=== PATIENT | male | born 1940 | race Caucasian/White ===

== ENCOUNTER 2019-04-02 10:27 | Outpatient (CLI) | payer MEDICARE, SELFPAY ==
--- NOTE | 2019-04-02 10:54 | CT_ITS ---
WS: [id number] CT ANGIOGRAM CAROTID ARTERIES HISTORY: CAROTID STENOSIS TECHNIQUE: CT angiogram is performed of the carotid arteries. During arterial injection imaging is ob tained from the skull base to the aortic arch in 1.25 mm imaging. Coronal and sagittal reformats are submitted, MIP imaging also reviewed. Additional multiplanar reformats of the carotid arteries are chapin bmitted. NASCET criteria utilized. All CT scans at [facility] use at least one of these d ose optimization techniques: automated exposure control; mA and/or kV adjustment per patient size (in cludes targeted exams where dose is matched to clinical indication); or iterative reconstruction. CONTRAST: Omnipaque 350; 95 mL IV. DLP: 921.74 mGycm COMPARISON: 03/08/2018 and carotid ultrasound 02/06/2018 Right carotid: Common carotid artery: Arises normally from the innominate artery. No significant stenosis. Internal carotid artery: Calcified plaque and intimal thickening at the bifurcation. Stenosis less th an 50%. External carotid artery: Patent. Left carotid: Common carotid artery: Arises normally from the arch. Intimal thickening and scattered plaque. No jefry nosis. Internal carotid artery: Moderate amount of calcified plaque at the bifurcation. Stenosis calculated at 73%. No progression since the prior examination. External carotid artery: Patent. Right vertebral artery: Mild calcified plaque and no stenosis. Left vertebral artery: Arises directly from the arch. No stenosis. Subclavian arteries: No stenosis or abnormality identified. Upper thorax: Normal. Thyroid gland: Normal. Osseous structures: Unremarkable. Skull base: No destructive bone lesions. Orbits and globes and soft tissues are negative. CT/CT angio neck [id number] IMPRESSION: 1. Stable moderate stenosis of 73% at the proximal LEFT ICA. No progression si nce 03/08/2018. 2. Mild atherosclerosis and stenosis RIGHT ICA, less than 50% without progress ion. 3. LEFT vertebral artery arises directly from the arch.
[2019-04-02 11:24] LABS: Blood Urea Nitrogen 13 mg/dL (8-23)
[2019-04-02] MEDS: iohexol 350 mg/mL 100 mL Btl IV (11:35)
== END 2019-04-02 10:28 | disposition home or self-care (01) ==
PROVIDERS: Radiology Diagnostic Radiology; Family Provider Nurse Practitioner Family; PCP Nurse Practitioner Family; Visit Provider Internal Medicine Cardiovascular Disease
DX: I65.23 Occlusion and stenosis of bilateral carotid arteries (principal)
CPT/HCPCS: 70498; 82565; 84520; Q9967

== ENCOUNTER 2019-07-25 12:40 | Outpatient (RCR) | payer MEDICARE, SELFPAY | END 2019-08-12 23:59 | disposition home or self-care (01) | LOC: SPT 12:40 | PROVIDERS: Family Provider Nurse Practitioner Family; PCP Nurse Practitioner Family; Referring Provider Nurse Practitioner Family; Visit Provider Nurse Practitioner Family | DX: M25.511 Pain in right shoulder (principal) | CPT/HCPCS: 97110; 97162; G0283 ==

== ENCOUNTER 2019-08-13 06:00 | Outpatient (RCR) | payer MEDICARE, SELFPAY | END 2019-08-17 11:26 | disposition home or self-care (01) | LOC: SPT 06:00 | PROVIDERS: PCP Nurse Practitioner Family; Referring Provider Nurse Practitioner Family; Visit Provider Nurse Practitioner Family | DX: M25.511 Pain in right shoulder (principal) | CPT/HCPCS: 97110; G0283 ==

== ENCOUNTER 2020-07-10 09:28 | Outpatient (CLI) | payer MEDICARE, SELFPAY ==
--- NOTE | 2020-07-10 09:40 | XR_ITS ---
WS: [id number] Exam: XR wrist RT min 3V* [id number] Date/Time of Exam: 07/10/2020 9:46 AM Reason For Exam: RIGHT WRIST PAIN No acute fracture or dislocation noted. Soft tissues are unremarkable. Mild degenerative change at th e radiocarpal joint. Marked DJD at the carpometacarpal joint of the thumb. XR/XR wrist RT min 3V* [id number] IMPRESSION: 1. No acute fracture or dislocation. 2. Degenerative changes.
== END 2020-07-10 09:29 | disposition home or self-care (01) ==
PROVIDERS: PCP Nurse Practitioner Family; Visit Provider Nurse Practitioner Family
DX: M25.531 Pain in right wrist (principal)
CPT/HCPCS: 73110

== ENCOUNTER 2020-07-16 09:47 | Outpatient (CLI) | payer MEDICARE, SELFPAY ==
--- NOTE | 2020-07-16 09:55 | CT_ITS ---
WS: [id number] CT HEAD NONCONTRAST HISTORY: ABNORMAL NEUROLOGICAL FINDINGS TECHNIQUE: Contiguous axial imaging performed through the brain in 2.5 mm imaging. Bone and soft tiss ue windows. All CT scans at [facility] use at least one of these dose optimization techniq ues: automated exposure control; mA and/or kV adjustment per patient size (includes targeted exams wh ere dose is matched to clinical indication); or iterative reconstruction. DLP: 992.04 mGycm COMPARISON: None available. Mild atrophy and mild chronic microvascular ischemic disease. No prior infarcts. There is a tiny lacu danica infarct in the RIGHT thalamus. Additional lacunar infarct versus perivascular space in the inferi or LEFT basal ganglia. Normal posterior fossa. Ventricles: Normal size with no hydrocephalus. Mild atherosclerotic plaque within the intracranial carotid arteries. Paranasal sinuses: As visualized are clear. Mastoid air cells: Well pneumatized. Calvarium and scalp: No acute fracture. Oscar hole in the RIGHT frontal lobe. CT/CT head wo con* [id number] IMPRESSION: 1. No acute intracranial hemorrhage or edema. 2. 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
== END 2020-07-16 09:48 | disposition home or self-care (01) ==
LOC: RADWPI 09:50
PROVIDERS: PCP Nurse Practitioner Family; Visit Provider Nurse Practitioner Family
DX: R29.90 Unspecified symptoms and signs involving the nervous system (principal); G31.9 Degenerative disease of nervous system, unspecified; I63.81 Other cerebral infarction due to occlusion or stenosis of small artery
CPT/HCPCS: 70450

== ENCOUNTER 2020-08-28 12:22 | Outpatient (CLI) | payer MEDICARE, SELFPAY ==
--- NOTE | 2020-08-28 12:41 | XR_ITS ---
WS: [id number] Exam: XR lumbar spine 2-3V* [id number] Date/Time of Exam: 08/28/2020 12:43 PM Reason For Exam: pain No acute fracture or dislocation noted. There is an old fracture of L2 with about 25% loss of vertebr al height and no posterior displacement. This can be seen on prior abdominal CT scan performed 017. Disc spaces are preserved. Facet DJD at all levels. Osteopenia. 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 This is probably magnified somewhat. Facet DJD at L4-5 and L5-S1. XR/XR lumbar spine 2-3V* [id number] IMPRESSION: 1. No acute fracture or malalignment. 2. Old compression fracture of the L2 without significant posterior displacemen t. 3. Osteopenia and degenerative changes. 4. 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 This was also noted on prior abdominal CT scan performed 11/05/2016.
--- NOTE | 2020-08-28 12:41 | XR_ITS ---
WS: [id number] Exam: XR thoracic spine 3V* [id number] Date/Time of Exam: 08/28/2020 12:43 PM Reason For Exam: pain Comparison 03/26/2015. There are old nondisplaced mild insufficiency compression deformities of T3, T4, T5, T8 and T9 which are stable in appearance since prior study. No acute new fracture is seen. Mild spondylosis. Osteopen ia. Paraspinal soft tissues are unremarkable. Slight dextroscoliosis. XR/XR thoracic spine 3V* [id number] IMPRESSION: 1. Old nondisplaced mild insufficiency compression deformities of T3, T4, T5, T 8 and T9. 2. No acute fracture or malalignment. 3. Mild degenerative change, osteopenia and slight scoliosis.
== END 2020-08-28 12:23 | disposition home or self-care (01) ==
PROVIDERS: Visit Provider Nurse Practitioner
DX: M54.5 Low back pain (principal); M54.6 Pain in thoracic spine; M85.88 Other specified disorders of bone density and structure, other site; I71.4 Abdominal aortic aneurysm, without rupture
CPT/HCPCS: 72072; 72100

== ENCOUNTER → 2021-01-16 10:55 | Outpatient (BNVA) | payer MEDICARE, SELFPAY | PROVIDERS: PCP Family Medicine Adult Medicine; Visit Provider Family Medicine Adult Medicine | DX: N40.0 Benign prostatic hyperplasia without lower urinary tract symptoms (principal); E11.9 Type 2 diabetes mellitus without complications; Z13.6 Encounter for screening for cardiovascular disorders | CPT/HCPCS: 80053; 80061; 83036; 83721; 84153; 84443; 85025 ==

== ENCOUNTER 2021-03-03 10:26 | Outpatient (CLI) | payer MEDICARE, SELFPAY ==
--- NOTE | 2021-03-03 10:30 | CT_ITS ---
WS: [id number] Exam: CT angio headne* [id number] Date/Time of Exam: 03/03/2021 10:31 AM Reason For Exam: Acute vision changes x2-3 per wk DLP: 1268.[address] scans at [facility] use at least one of these dose optimization techniques: automated e xposure control; mA and/or kV adjustment per patient size (includes targeted exams where dose is matc hed to clinical indication); or iterative reconstruction. Compared to prior study 04/02/2019. The right and left common carotid arteries are patent. There is stenosis at the takeoff of the left I CA estimated at about 75% essentially unchanged. There is mild stenosis at the takeoff of the right I CA estimated at less than 50% also unchanged since previous study. The external carotid arteries were patent. There appears to be new stenosis of the cavernous left internal carotid artery since the felicia or study. The cavernous right internal carotid artery remains widely patent. No sign of the artery d issection or aneurysm. The right and left vertebral arteries are patent. The basilar artery is patent . The great vessels are patent at the level of the aortic arch. Again noted is the left vertebral art latasha originating separately from the arch as previously described. Visualized upper lung zones are clear. No evidence of neck mass or significant cervical lymphadenopat hy. The airway was patent. The skull base and posterior fossa were unremarkable. Images of the brain demonstrated no sign of mass or acute bleed. Bony defect in the outer table of the skull high along t he right convexity may be from prior trauma or postsurgical change. CT/CT angio headne* [id number] IMPRESSION: 1. Stable-appearing stenosis at the takeoff of the extracranial left ICA estima adilson at about 75%. 2. Stable appearing mild stenosis at the takeoff of the extracranial right ICA estimated at less than 50%. 3. The bilateral carotid arteries are patent. No indication of aneurysm or diss ection. 4. Stenosis of the left cavernous internal carotid artery which could could be as high as 70-80%. This is a change since the last exam. Further workup with CT A or MRA of the head might be considered for more detailed evaluation.
[2021-03-03] MEDS: iohexol 350 mg/mL 100 mL Btl IV (16:21)
== END 2021-03-03 10:27 | disposition home or self-care (01) ==
PROVIDERS: PCP Family Medicine Adult Medicine; Visit Provider Family Medicine Adult Medicine
DX: H53.8 Other visual disturbances (principal); G43.109 Migraine with aura, not intractable, without status migrainosus; I65.23 Occlusion and stenosis of bilateral carotid arteries
CPT/HCPCS: 70496; 70498; Q9967

== ENCOUNTER 2021-05-05 07:52 | Outpatient (CLI) | payer MEDICARE, SELFPAY ==
--- NOTE | 2021-05-05 08:10 | XR_ITS ---
WS: [id number] Exam: XR chest 2V insp/exp [id number] Date/Time of Exam: 05/05/2021 8:18 AM Reason For Exam: shortness of breath Comparison 11/29/2018. The lungs are clear and fully expanded. No pneumothorax is seen. Normal cardiomediastinal silhouette. No pleural effusions. Bony structures are intact. High riding right humeral head may indicate long-s tanding rotator cuff tear. XR/XR chest 2V insp/exp [id number] IMPRESSION: 1. No acute cardiopulmonary finding. No pneumothorax.
== END 2021-05-05 07:53 | disposition home or self-care (01) ==
PROVIDERS: PCP Family Medicine Adult Medicine; Visit Provider Family Medicine Adult Medicine
DX: R06.02 Shortness of breath (principal)
CPT/HCPCS: 71046

== ENCOUNTER → 2021-06-04 13:21 | Outpatient (BNVA) | payer MEDICARE, SELFPAY | PROVIDERS: PCP Family Medicine Adult Medicine; Visit Provider Thoracic Surgery (Cardiothoracic Vascular Surgery) | DX: I65.23 Occlusion and stenosis of bilateral carotid arteries (principal); Z87.891 Personal history of nicotine dependence | CPT/HCPCS: 99213 ==

== ENCOUNTER 2021-07-21 08:42 | Emergency (ER) | payer MEDICARE, SELFPAY ==
--- NOTE | 2021-07-21 08:47 | ECG_ITS ---
[facility] Test Date: 2021-07-21 Pat Name: Clovis Jaquez Department: Room: Gender: Male Remote Pilot Operator: : 1940 Requested By: Ermias Chavez Order Number: [id number] George MD: Gustavo Mo M.D. Measurements Intervals [place] Rate: 111 P: 34 RI: 228 QRS: 19 QRSD: 85 T: -2 QT: 310 QTc: 421 Interpretive Statements SINUS TACHYCARDIA WITH FIRST DEGREE AV BLOCK Compared to ECG 02/02/2016 11:08:39 First degree AV block now present Sinus rhythm no longer present Electronically Signed On 07-21-2021 17:27:48 CDT by Gustavo Mo M.D. [id number]
[2021-07-21 09:07] VITALS: BP 117/90; PULSE 120; RESP 16; O2SAT 95; BMI 28.7
--- NOTE | 2021-07-21 09:07 | ED_ITS ---
HPI - Arrhythmia/Palpitations General: Chief Complaint: Arrhythmia/Palpitations Stated Complaint: fast HR Time Seen by Provider: 07/21/21 08:46 Source: patient Mode of arrival: ambulatory Limitations: no limitations History of Present Illness: 80 male present to the ER with complaitns of a rapid heart rate this morning while in bed. Pt denies cehst pain or dyspnea. He usually Takes metoprolol tartrate twice daily. He is also on a low-dose JORY inhibitor. Not otherwise recently been ill. MD complaint: rapid heart beat and heart racing Onset (ago): hour(s) Duration: intermittent Severity: mild Context: occurred during rest Associated symptoms: Deny anxiety, cough, diaphoresis, muscle cramps, nausea, paresthesias, pre-syncope, sense of impending doom, short of breath, syncope or vomiting Review of Systems Const: Denies: fever(s), chills, body aches or diaphoresis ENMT: Denies: throat pain, ear or mastoid pain, nasal discharge or nasal congestion Card: Reports: palpitations; Denies: chest pain, irregular heart rhythm, edema, syncope or pre-syncope Resp: Denies: dyspnea, productive cough or non-productive cough GI: Denies: nausea or vomiting : Denies: flank pain, dysuria, urinary frequency or urinary urgency Musc: Denies: muscle cramps Skin/Breast: Denies: rash or pruritus Psych: Denies: anxiety PFSH ED PFSH: Medical History BPH (benign prostatic hyperplasia) Carotid stenosis, left DM type 2 (diabetes mellitus, type 2) GERD (gastroesophageal reflux disease) History of chronic back pain HTN (hypertension), benign Hyperlipidemia associated with type 2 diabetes mellitus Migraine equivalent syndrome Osteoarthritis involving multiple joints on both sides of body SOB (shortness of breath) Vitreous flashes of both eyes Surgical History H/O brain surgery H/O cataract extraction History of appendectomy History of cholecystectomy S/P hernia surgery Family History Sister Cancer Father Cancer Other CAD (coronary artery disease) Social History Smoking and tobacco status: former smoker Quit status (tobacco): has quit using tobacco Year quit tobacco: 1969 Former quit date comment: Smoked x 22 year 1/2 pack per day Alcohol intake: current Alcohol intake frequency: holidays/special occasions only Marital status: Current occupational status: employed and retired Physical Exam Const: COMMON NORMALS: no acute distress GENERAL APPEARANCE: cooperative and comfortable ORIENTATION/CONSCIOUSNESS: Yes awake, Yes oriented to person, Yes oriented to place and Yes oriented to time HENMT: COMMON NORMALS: normocephalic, atraumatic and hearing grossly normal bilaterally HEAD & SCALP: normocephalic and atraumatic Neck/C-Spine: COMMON NORMALS: no JVD Resp: COMMON NORMALS: normal respiratory effort, No retractions, No use of accessory muscles and clear to auscultation bilaterally AUSCULTATION: clear to auscultation bilaterally Cardio: COMMON NORMALS: no JVD, regular rhythm and No murmurs present (Cardio) RATE: tachycardic RHYTHM: regular rhythm GI: COMMON NORMALS: Soft to palpation and No hepatosplenomegaly present AUSCULTATION: Yes normoactive bowel sounds PALPATION: Yes Soft to palpation, No Tenderness to palpation present (GI), No Guarding due to palpation present (GI) and Yes No hepatosplenomegaly present Extremity: COMMON NORMALS: normal to inspection, capillary refill normal, no clubbing, cyanosis or edema, no calf tenderness and no pedal edema Neuro: SENSORIUM/ORIENTATION: Yes oriented to person, Yes oriented to place and Yes oriented to time Skin: COMMON NORMALS: no rashes or lesions noted GENERAL SKIN EXAM: no rashes or lesions noted Course Vital Signs: Vital signs: Vital Signs Pulse Rate 99 07/21/21 10:05 Respiratory Rate 18 07/21/21 10:05 Blood Pressure 93/67 07/21/21 10:05 Pulse Oximetry 95 07/21/21 10:05 MDM - Arrhythmia/Palpitations Medical Decision Making heart rate improved as did his blood pressure. He is only taking metoprolol tartrate once daily he may have some aspect of rebound tachycardia due to that. He is on ramipril as well. At this point recommend stopping the ramipril and switching him to metoprolol succinate to avoid rebound hypertension recheck his blood pressure with his doctor within the week. Return if he has further problems. Medical Records I reviewed the patient's medical records. Lab Data I reviewed the patient's lab results. : 07/21/21 09:44 07/21/21 09:44 Radiology Impressions Chest X-Ray 07/21/21 09:39 IMPRESSION: No acute chest abnormality. Laboratory Results WBC 9.4 10^3/uL (4.0-10.0) 07/21/21 09:44 RBC 4.47 10^6/uL (4.1-5.3) 07/21/21 09:44 Hgb 14.2 g/dL (11.7-16.6) 07/21/21 09:44 Hct 42.6 % (42.0-52.0) 07/21/21 09:44 MCV 95.3 fl (80-94) H 07/21/21 09:44 MCH 31.8 pg (28.0-34.0) 07/21/21 09:44 MCHC 33.3 g/dL (30.0-36.0) 07/21/21 09:44 RDW 13.2 % (12.1-15.1) 07/21/21 09:44 Plt Count 145 10^3/cmm (130-400) 07/21/21 09:44 MPV 10.0 fL (7.4-10.4) 07/21/21 09:44 Neut % (Auto) 53.4 % 07/21/21 09:44 Lymph % (Auto) 34.9 % 07/21/21 09:44 Forest % (Auto) 8.3 % 07/21/21 09:44 Eos % (Auto) 2.5 % 07/21/21 09:44 Baso % (Auto) 0.6 % 07/21/21 09:44 Neut # (Auto) 5.01 10^3/uL (1.8-7.7) 07/21/21 09:44 Lymph # (Auto) 3.3 10^3/uL (0.8-4.8) 07/21/21 09:44 Forest # (Auto) 0.8 10^3/uL (0.2-0.9) 07/21/21 09:44 Eos # (Auto) 0.2 10^3/uL (0.0-0.8) 07/21/21 09:44 Baso # (Auto) 0.1 10^3/uL (0.0-0.1) 07/21/21 09:44 Nucleated RBC % (auto) 0 % 07/21/21 09:44 Nucleated RBCs # 0.0 /100WBC 07/21/21 09:44 Sodium 137 mmol/L (136-145) 07/21/21 09:44 Potassium 4.3 mmol/L (3.5-5.1) 07/21/21 09:44 Chloride 103 mmol/L (98-107) 07/21/21 09:44 Carbon Dioxide 20 mmol/L (22-29) L 07/21/21 09:44 Anion Gap 18.3 (5-19) 07/21/21 09:44 BUN 18 mg/dL (8-23) 07/21/21 09:44 Creatinine 0.9 mg/dL (0.7-1.2) 07/21/21 09:44 GFR Calculation Not Reportable 07/21/21 09:44 Glucose 240 mg/dL (65-115) H 07/21/21 09:44 Calculated Osmolality 294 mOsm/kg (285-295) 07/21/21 09:44 Calcium 10.1 mg/dL (8.5-10.5) 07/21/21 09:44 Total Bilirubin 0.4 mg/dL (0.15-1.2) 07/21/21 09:44 AST 14 U/L (0-40) 07/21/21 09:44 ALT 19 U/L (0-41) 07/21/21 09:44 Alkaline Phosphatase 61 IU/L (40-130) 07/21/21 09:44 Troponin T Baseline 18 ng/L (0-15) H 07/21/21 09:44 Troponin T 120 Minute 16.96 ng/L (0-15) H 07/21/21 10:35 Delta Troponin T -1.04 ABS# (0-10) L 07/21/21 10:35 Total Protein 6.7 g/dL (6.6-8.7) 07/21/21 09:44 Albumin 4.3 g/dL (3.5-5.2) 07/21/21 09:44 Globulin 2.4 g/dL (1.3-4.6) 07/21/21 09:44 TSH 1.85 uIU/mL (0.27-4.20) 07/21/21 09:44 Discharge Plan Discharge Patient Disposition: Home Clinical Impression: Medication side effect, HTN (hypertension), benign, DM type 2 (diabetes mellitus, type 2), Sinus tachycardia Condition: Stable Prescriptions: New Toprol XL 50 mg tablet extended release 24 hr 50 mg PO DAILY Qty: 14 0RF Discontinued metoprolol tartrate 50 mg tablet See Rx Instructions .ROUTE .COMPLEX Qty: 90 3RF Dose Instruction: TAKE 1 TABLET ONE TIME DAILY FOR BLOOD PRESSURE AND HEART Rx Instructions: TAKE 1 TABLET ONE TIME DAILY FOR BLOOD PRESSURE AND HEART ramipril 2.5 mg capsule See Rx Instructions .ROUTE .COMPLEX Qty: 180 0RF Dose Instruction: TAKE 1 CAPSULE TWICE DAILY FOR BLOOD PRESSURE AND KIDNEY PROTECTION Rx Instructions: TAKE 1 CAPSULE TWICE DAILY FOR BLOOD PRESSURE AND KIDNEY PROTECTION No Action gabapentin 600 mg tablet 600 mg PO BID Qty: 180 1RF famotidine 20 mg tablet 20 mg PO BID Qty: 180 1RF meloxicam 7.5 mg tablet 7.5 mg PO DAILY PRN (Reason: arthritis pain) Qty: 90 1RF Rx Instructions: take with food tamsulosin 0.4 mg capsule 0.4 mg PO DAILY Qty: 90 1RF clopidogrel [Plavix] 75 mg tablet 75 mg PO DAILY Qty: 30 3RF aspirin [Adult Low Dose Aspirin] 81 mg tablet,delayed release (DR/EC) 81 mg PO DAILY 0RF glipizide 5 mg tablet See Rx Instructions .ROUTE .COMPLEX Qty: 180 0RF Dose Instruction: TAKE 1 TABLET TWICE DAILY FOR DIABETES Rx Instructions: TAKE 1 TABLET TWICE DAILY FOR DIABETES metformin 1,000 mg tablet See Rx Instructions .ROUTE .COMPLEX Qty: 180 3RF Dose Instruction: TAKE 1 TABLET TWICE DAILY Rx Instructions: TAKE 1 TABLET TWICE DAILY (DME) True Metrix Glucose Test Strip Strip See Rx Instructions .Route Qty: 50 0RF Rx Instructions: As directed, test blood sugar, once, daily. atorvastatin 80 mg tablet See Rx Instructions .ROUTE .COMPLEX Qty: 90 1RF Dose Instruction: TAKE 1 TABLET EVERY DAY Rx Instructions: TAKE 1 TABLET EVERY DAY Discharge Orders: Discharge ED (Routine); Ordered 07/21/21 Ordered By: Ermias Chaudhry Referrals: Sushil Islas MD [Primary Care Provider] - Discharge Diet: Usual diet Discharge Activity: Limit activity as instructed Patient Instructions: Opioid Safety Activity Restrictions/Additional Instructions: Avoid strenuous activity. Stop the metoprolol tartrate and instead use metoprolol to succinate (the longer acting medication will lead to less tachycardic episodes). Also stop the ramp arrival. Recheck blood pressure with your doctor within a week. Coding Level of Care Code ED Chief Station Engineer for Sebastien Albright
[2021-07-21] MEDS: sodium chloride 0.9% 500 ML 999 ML IV (09:38)
--- NOTE | 2021-07-21 09:39 | XR_ITS ---
WS: [id number] XR chest 1V portable [id number] REASON FOR EXAM: dyspnea/cough FINDINGS: Moderate tortuosity and ectasia of the thoracic aorta without aneurysmal dilatation. Normal heart size. Elevation of the right hemidiaphragm. Calcified granulomatous disease bilaterally. No acute pulmonary parenchymal or pleural abnormality. Significant degenerative spondylosis in the mid and lower thoracic spine. The chest is unchanged compared to 05/05/2021. XR/XR chest 1V portable [id number] IMPRESSION: No acute chest abnormality.
[2021-07-21 09:52] LABS: Basophils # 0.1 10^3/uL (0.0-0.1); Basophils % 0.6 %; Eosinophils # 0.2 10^3/uL (0.0-0.8); Eosinophils % 2.5 %; Hematocrit 42.6 % (42.0-52.0); Hemoglobin 14.2 g/dL (11.7-16.6); Lymphocytes # 3.3 10^3/uL (0.8-4.8); Lymphocytes % 34.9 %; Mean Corpuscular HGB Conc 33.3 g/dL (30.0-36.0); Mean Corpuscular Hemoglobin 31.8 pg (28.0-34.0); Mean Corpuscular Volume 95.3 fl (80-94); Monocytes # 0.8 10^3/uL (0.2-0.9); Monocytes % 8.3 %; Neutrophils # 5.01 10^3/uL (1.8-7.7); Neutrophils % 53.4 %; Nucleated Red Blood Cells % 0 %; Platelet Count 145 10^3/cmm (130-400); Red Blood Count 4.47 10^6/uL (4.1-5.3); Red Cell Distribution Width 13.2 % (12.1-15.1); White Blood Count 9.4 10^3/uL (4.0-10.0)
[2021-07-21 10:05] VITALS: BP 93/67; PULSE 99; RESP 18; O2SAT 95
[2021-07-21 10:07] LABS: Troponin(5th) Baseline 18 ng/L (0-15)
[2021-07-21] MEDS: sodium chloride 0.9% 1,000 ML 999 ML IV (10:29)
[2021-07-21 10:33] LABS: Alanine Aminotransferase 19 U/L (0-41); Albumin Level 4.3 g/dL (3.5-5.2); Alkaline Phosphatase 61 IU/L (40-130); Anion Gap 18.3 (5-19); Aspartate Amino Transferase 14 U/L (0-40); Blood Urea Nitrogen 18 mg/dL (8-23); Calcium 10.1 mg/dL (8.5-10.5); Carbon Dioxide 20 mmol/L (22-29); Chloride 103 mmol/L (98-107); Globulin 2.4 g/dL (1.3-4.6); Glucose 240 mg/dL (65-115); Osmolality Calculated 294 mOsm/kg (285-295); Potassium 4.3 mmol/L (3.5-5.1); Sodium 137 mmol/L (136-145); Thyroid Stimulating Hormone 1.85 uIU/mL (0.27-4.20); Total Bilirubin 0.4 mg/dL (0.15-1.2); Total Protein 6.7 g/dL (6.6-8.7)
--- NOTE | 2021-07-21 10:47 | ECG_ITS ---
[facility] Test Date: 2021-07-21 Pat Name: Clovis Jaquez Department: Room: Gender: Male Certified Medical Asst: : 1940 Requested By: Ermias Chavez Order Number: [id number] George MD: Gustavo Mo M.D. Measurements Intervals [place] Rate: 93 P: 36 UT: 257 QRS: 20 QRSD: 85 T: -4 QT: 341 QTc: 426 Interpretive Statements SINUS RHYTHM WITH FIRST DEGREE AV BLOCK Compared to ECG 07/21/2021 09:16:16 Sinus tachycardia no longer present Electronically Signed On 07-21-2021 17:30:46 CDT by Gustavo Mo M.D. [id number]
[2021-07-21 11:01] LABS: Troponin 5 2HR 16.96 ng/L (0-15)
[2021-07-21 11:02] LABS: Troponin 5 2HR Delta -1.04 ABS# (0-10)
== END 2021-07-21 11:30 | disposition home or self-care (01) ==
PROVIDERS: Emergency Provider Family Medicine; PCP Family Medicine Adult Medicine
DX: R00.0 Tachycardia, unspecified (principal); T44.7X5A Adverse effect of beta-adrenoreceptor antagonists, initial encounter; E11.9 Type 2 diabetes mellitus without complications; I10 Essential (primary) hypertension; E78.5 Hyperlipidemia, unspecified; K21.9 Gastro-esophageal reflux disease without esophagitis
CPT/HCPCS: 36415; 71045; 80053; 84443; 84484; 85025; 93005; 99284; J7030; J7040

== ENCOUNTER 2021-10-26 11:50 | Emergency (ER) | payer MEDICARE, SELFPAY ==
[2021-10-26 12:26] VITALS: BP 129/81; PULSE 66; RESP 18; TEMP 36.2; O2SAT 97; BMI 28.5
[2021-10-26 12:35] VITALS: BP 119/75; PULSE 60; RESP 16; O2SAT 96
--- NOTE | 2021-10-26 13:01 | ED_ITS ---
HPI - General Adult General: Chief complaint: General Medical Stated complaint: right side pain Time Seen by Provider: 10/26/21 13:00 Source: patient Mode of arrival: ambulatory Limitations: no limitations History of Present Illness: Patient is a nice 81-year-old male who presents to ED today with a complaint of right side pain. Patient tells me he sneezed earlier and immediately felt pain to his right lateral chest and abdomen. He states he did this one time before approximately 3 decades ago and states he strained something in his abdominal wall that did heal with time. Patient is not complaining of chest pain, shortness of breath, difficulty breathing. He is not having any nausea, vomiting, changes in bowel movements. No urinary complaints. No flank pain. No fevers. Has not noticed any bruising or swelling to the area. Onset (ago): hour(s) Location: chest and abdomen Pain Consistency: constant Relieving factors: immobilization Exacerbating factors: movement Associated symptoms: Reports no associated symptoms and chest pain (R lateral lower chest/abdomen); Deny dyspnea, nausea, rash, palpitations, syncope or vomiting Treatments prior to arrival: none Review of Systems Const: Denies: fever(s), chills or body aches Card: Reports: chest pain (R lateral lower chest/abdomen); Denies: palpitations, irregular heart rhythm, edema, swelling of feet/ankles, lightheadedness, syncope, pre-syncope, dyspnea on exertion, orthopnea, leg pain with exertion or acrocyanosis Resp: Denies: dyspnea, productive cough, wheezing, pain on inspiration, hemoptysis or chest congestion GI: Reports: abdominal pain; Denies: nausea, vomiting or diarrhea : Denies: flank pain or hematuria Musc: Denies: neck pain, back pain, extremity pain or joint pain Skin/Breast: Denies: rash Neuro: Denies: numbness in extremities, weakness in extremities, sensory changes or difficulty walking [facility] ED PFSH: Medical History BPH (benign prostatic hyperplasia) Carotid stenosis, left DM type 2 (diabetes mellitus, type 2) GERD (gastroesophageal reflux disease) History of chronic back pain HTN (hypertension), benign Hyperlipidemia associated with type 2 diabetes mellitus Migraine equivalent syndrome Osteoarthritis involving multiple joints on both sides of body SOB (shortness of breath) Vitreous flashes of both eyes Surgical History H/O brain surgery H/O cataract extraction History of appendectomy History of cholecystectomy S/P hernia surgery Family History Sister Cancer Father Cancer Other CAD (coronary artery disease) Social History Smoking and tobacco status: former smoker Quit status (tobacco): has quit using tobacco Year quit tobacco: 1969 Former quit date comment: Smoked x 22 year 1/2 pack per day Alcohol intake: current Alcohol intake frequency: holidays/special occasions only Marital status: Current occupational status: employed and retired Physical Exam Const: COMMON NORMALS: no acute distress, patient oriented x3, no limitations, alert and well nourished GENERAL APPEARANCE: cooperative NUTRITIONAL APPEARANCE: overweight ORIENTATION/CONSCIOUSNESS: Yes awake, Yes oriented to person, Yes oriented to place and Yes oriented to time Chest: COMMONS NORMALS: normal inspection of the chest OTHER: mild tenderness to R lower lateral ribs; no crepitus; breath sounds normal Resp: COMMON NORMALS: normal respiratory effort and clear to auscultation bilaterally AUSCULTATION: clear to auscultation bilaterally Cardio: COMMON NORMALS: regular rate and regular rhythm RATE: regular rate RHYTHM: regular rhythm GI: COMMON NORMALS: Normal to inspection, nondistended, normoactive bowel sounds present, Soft to palpation, No hepatosplenomegaly present and no masses INSPECTION: Yes normal to inspection AUSCULTATION: Yes normoactive bowel sounds PALPATION: Yes Soft to palpation, No Guarding due to palpation present (GI), No Rigid due to palpation and Yes No hepatosplenomegaly present GI image (male): 1. mild tenderness to palpation of R lateral abdomen; no masses/bulges/hernias present : COMMON NORMALS: Yes no CVA tenderness BLADDER/KIDNEY EXAM: Yes no CVA tenderness Back/Pelvis: COMMON NORMALS: no CVA tenderness, thoracic and lumbar spine normal to inspection, no thoracic nor lumbar tenderness and thoraco-lumbar ROM normal Extremity: COMMON NORMALS: normal to inspection GENERAL: Yes normal exam except as noted Neuro: JAYDA COMA SCALE: document GCS findings Jayda coma scale eye opening: Spontaneous [place] coma scale verbal response: Orientated Jayda coma scale motor response: Obey commands [place] coma scale total score: 15 COMMON NORMALS: patient oriented x3, moves all extremities, no focal motor deficits and no sensory deficits noted SENSORIUM/ORIENTATION: Yes alert, Yes oriented to person, Yes oriented to place and Yes oriented to time Skin: COMMON NORMALS: no rashes or lesions noted GENERAL SKIN EXAM: no rashes or lesions noted Course Vital Signs: Vital signs: Vital Signs Temperature 97.1 F L 10/26/21 12:26 Pulse Rate 60 10/26/21 12:35 Respiratory Rate 16 10/26/21 12:35 Blood Pressure 119/75 10/26/21 12:35 Pulse Oximetry 96 10/26/21 12:35 Oxygen Delivery Me thod 10/26/21 12:35 MDM - General Adult Medical Decision Making Patient here with right lateral chest/abdominal pain after a sneeze this morning. R rib/CXR films negative. Patient diagnosed with abdominal wall strain. Conservative therapies for home discussed. Recommend follow up with PCP in 3-5 days for re-evaluation. Return to ED precautions given. Lab Data Radiology Impressions Ribs X-Ray 10/26/21 13:44 IMPRESSION: No acute findings. Discharge Plan Discharge Patient Disposition: Home Clinical Impression: Strain of abdominal wall Qualifiers: Encounter type: initial encounter Qualified Code(s): S39.011A - Strain of muscle, fascia and tendon of abdomen, initial encounter Condition: Stable Prescriptions: No Action aspirin [Adult Low Dose Aspirin] 81 mg tablet,delayed release (DR/EC) 81 mg PO DAILY lisinopril 2.5 mg tablet 2.5 mg PO DAILY Qty: 90 1RF metoprolol tartrate 50 mg tablet 50 mg PO BID Qty: 180 1RF metformin 1,000 mg tablet See Rx Instructions .ROUTE .COMPLEX Qty: 180 3RF Dose Instruction: TAKE 1 TABLET TWICE DAILY Rx Instructions: TAKE 1 TABLET TWICE DAILY (DME) True Metrix Glucose Test Strip Strip See Rx Instructions .ROUTE .COMPLEX Qty: 50 0RF Dose Instruction: TEST BLOOD SUGAR EVERY DAY DIRECTED Rx Instructions: TEST BLOOD SUGAR EVERY DAY DIRECTED meloxicam 7.5 mg tablet See Rx Instructions .ROUTE .COMPLEX Qty: 90 0RF Dose Instruction: TAKE 1 TABLET ONE TIME DAILY NEEDED FOR ARTHRITIS PAIN (TAKE WITH FOOD) Rx Instructions: TAKE 1 TABLET ONE TIME DAILY NEEDED FOR ARTHRITIS PAIN (TAKE WITH FOOD) glipizide 5 mg tablet See Rx Instructions .ROUTE .COMPLEX Qty: 180 2RF Dose Instruction: TAKE 1 TABLET TWICE DAILY FOR DIABETES Rx Instructions: TAKE 1 TABLET TWICE DAILY FOR DIABETES topiramate 25 mg tablet 25 mg PO .qhs 90 Days Qty: 90 2RF gabapentin 600 mg tablet 600 mg PO BID Qty: 180 1RF famotidine 20 mg tablet 20 mg PO BID Qty: 180 1RF tamsulosin 0.4 mg capsule 0.4 mg PO DAILY Qty: 90 1RF Discharge Orders: Discharge ED (Routine); Ordered 10/26/21 Ordered By: Deb Baldwin Referrals: Sushil Islas MD [Primary Care Provider] - Coding Level of Care Code ED Pool Attendant for Chg Fwd Exam Comprehensive
--- NOTE | 2021-10-26 13:10 | PC.NURSE ---
Pt refused IV placement and blood draws.
--- NOTE | 2021-10-26 13:44 | XRR_ITS ---
PROCEDURE INFORMATION: Exam: XR Right Ribs with PA Chest Exam date and time: 10/26/2021 2:14 PM Age: 81 years old Clinical indication: Chest wall pain; Right; Additional info: Sneezed/heard a pop/injury/pain TECHNIQUE: Imaging protocol: Radiologic exam of the Right ribs with PA chest. Views: 3 views COMPARISON: CR XR chest 1V portable [id number] 07/21/2021 10:05 AM FINDINGS: Lungs: Unremarkable. No consolidation. Pleural spaces: Unremarkable. No pleural effusion. No pneumothorax. Heart/Mediastinum: Unremarkable. No cardiomegaly. Bones/joints: Unremarkable. XR/XR ribs RT mn 3V w CXR1V [id number] IMPRESSION: No acute findings.
== END 2021-10-26 15:06 | disposition home or self-care (01) ==
PROVIDERS: Emergency Provider Physician Assistant; PCP Family Medicine Adult Medicine
DX: S39.011A Strain of muscle, fascia and tendon of abdomen, initial encounter (principal); Z79.82 Long term (current) use of aspirin; Z79.84 Long term (current) use of oral hypoglycemic drugs; E11.9 Type 2 diabetes mellitus without complications; I10 Essential (primary) hypertension; E78.5 Hyperlipidemia, unspecified; Z87.891 Personal history of nicotine dependence; X58.XXXA Exposure to other specified factors, initial encounter
CPT/HCPCS: 71101; 99283

== ENCOUNTER → 2021-11-09 10:53 | Outpatient (BNVA) | payer MEDICARE, SELFPAY | PROVIDERS: PCP Family Medicine Adult Medicine; Visit Provider Family Medicine | DX: R35.0 Frequency of micturition (principal) | CPT/HCPCS: 81000 ==

== ENCOUNTER 2022-01-28 11:43 | Outpatient (CLI) | payer MEDICARE, SELFPAY ==
--- NOTE | 2022-01-28 12:15 | USCV_ITS ---
Clovis Jaquez Age: 81 Gender: M : 1940 Exam Date: 01/28/2022 11:55 Ordering Phys: Isai Castro MD (Andy) ([email or web address] [place]) Technologist: FELTON Exam Location: [facility] – [place] Indication: Stenosis Risk Factors: Previous Vascular Surgery: Right Brachial BP: / Left Brachial BP: / Right Left Velocity (cm/s) Spectral Plaque Velocity (cm/s) Spectral Plaque Syst/Diast Broadening Syst/Diast Broadening 65.10/ 11.00 Prox CCA 97.30 / 10.50 70.60/ 12.10 Mid CCA 80.50 / 8.80 87.10/ 11.00 Distal CCA 87.10 / 9.90 138.00/21.00 Prox ICA 103.90/ 17.10 134.10/26.30 Mid ICA 97.30 / 17.10 80.20/ 17.10 Distal ICA 115.70/ 18.40 133.40 ECA 111.70 1.58 ICA/CCA 1.19 Antegrade Vertebral Antegrade 69.70/ 11.80 cm/s 105.2/ 17.10 cm/s 0 Tri Subclavian Tri 94.70 110.4 0 CONCLUSIONS Right ICA stenosis 50-69% at the lower end of the range.. Mild atheromatous plaque right carotid bulb/ICA. Left ICA stenosis <50%. Mild atheromatous plaque left carotid bulb/ICA. Normal antegrade Doppler flow noted in the right vertebral artery. Normal antegrade Doppler flow noted in the left vertebral artery. Binh Hidalgo MD (Electronically Signed) Final Date: 28 January 2022 15:16 S
== END 2022-01-28 11:44 | disposition home or self-care (01) ==
LOC: RAD 11:44
PROVIDERS: PCP Family Medicine Adult Medicine; Visit Provider Thoracic Surgery (Cardiothoracic Vascular Surgery)
DX: I65.23 Occlusion and stenosis of bilateral carotid arteries (principal)
CPT/HCPCS: 93880

== ENCOUNTER → 2022-06-29 14:43 | Outpatient (BNVA) | payer MEDICARE, SELFPAY | PROVIDERS: PCP Family Medicine Adult Medicine; Visit Provider Surgery | DX: K21.9 Gastro-esophageal reflux disease without esophagitis (principal); R11.0 Nausea | CPT/HCPCS: 99203 ==

== ENCOUNTER 2022-07-21 07:19 | Day surgery (SDC) | payer MEDICARE, SELFPAY ==
[2022-07-19 14:20] VITALS: BMI 29.2
[2022-07-21 07:40] VITALS: BP 128/98; PULSE 115; RESP 16; TEMP 36.3; O2SAT 95
[2022-07-21] MEDS: sodium chloride 0.9% 1,000 ML 30 ML IV (07:46)
[2022-07-21 07:50] LABS: Glucose Point of Care 302 mg/dL (70-110)
--- NOTE | 2022-07-21 09:07 | ANES.PREANE2 ---
Pre-Anesthetic Assessment Height/Weight: Height 1.8 m Weight 95.254 kg Temp Pulse Resp BP Pulse Ox O2 Del Method 97.4 F L 115 H 16 128/98 95 Room Air 07/21/22 07:40 07/21/22 07:40 07/21/22 07:40 07/21/22 07:40 07/21/22 07:40 07/21/22 07:40 Operation Date: 07/21/22 09:00 Proposed Procedures p [id number] egd K21.9, R11.0(Not Applicable) - Barrie Doss DO Familial anesthetic complications: none Was Beta Jean Carlos taken within 24 hours: Yes Was Clonidine taken within 24 hours: N/A Last intake: Intake Last Liquid Date 07/20/22 Last Liquid Time 20:00 Last Solid Date 07/20/22 Last Solid Time 19:00 Social No alcohol and No tobacco (h/o smoking) Exam alert, oriented x 3, clear to auscultation bilaterally and regular rate & rhythm Airway Submandibular: within normal limits Cervical ROM: within normal limits Mallampati: Class II Dentition: false Pulmonary Chronic Obstructive Pulmonary Disease CV/HEM Coronary Artery Disease, Hypertension, Myocardial Infarction and Peripheral Vascular Disease GI Gastroesophageal Reflux Disease Metabolic Diabetes Mellitus and Hyperlipidemia Musc/skel Lower Back Pain Neuropsych Headache Anesthetic Plan ASA status: 3 Anesthesia: MAC Medications/Allergies Home Medications Medication Instructions Recorded Confirmed Last Taken Type aspirin 81 mg tablet,delayed 81 mg PO DAILY 06/10/21 07/19/22 07/17/22 History release (Adult Low Dose Aspirin) metformin 1,000 mg tablet See Rx Instructions .Route 07/09/21 07/21/22 07/16/22 Rx .COMPLEX #180 tabs glipizide 5 mg tablet See Rx Instructions .Route 10/15/21 07/21/22 07/16/22 Rx .COMPLEX #180 tabs blood sugar diagnostic (True #100 strips 10/27/21 06/29/22 Unknown Rx Metrix Glucose Test Strip) simvastatin 20 mg tablet 20 mg PO DAILY dyslipidemia #90 10/27/21 07/21/22 07/16/22 Rx tabs tamsulosin 0.4 mg capsule 0.4 mg PO DAILY prostate 11/13/21 07/21/22 07/16/22 Rx medication #90 caps meloxicam 7.5 mg tablet 7.5 mg PO DAILY PRN arthritis/pain 12/16/21 07/21/22 07/16/22 Rx #90 tabs lisinopril 2.5 mg tablet See Rx Instructions .Route 01/13/22 07/21/22 07/16/22 Rx .COMPLEX #90 tabs lancets #400 ea 02/03/22 06/29/22 Unknown Rx metoprolol tartrate 50 mg tablet 50 mg PO BID blood pressure and 02/16/22 07/21/22 07/16/22 Rx heart rate #180 tabs pantoprazole 40 mg tablet,delayed 40 mg PO BID Hiatal hernia & 05/27/22 07/21/22 07/16/22 Rx release reflux #60 tabs coQ10 (ubiquinol) 100 mg capsule 100 mg PO DAILY 07/19/22 07/21/22 07/16/22 History diphenhydramine HCl 50 mg capsule 50 mg PO BEDTIME PRN Insomnia 07/19/22 07/21/22 07/16/22 History ([employer]) Allergies Allergy/AdvReac Type Severity Reaction Status Date / Time Penicillins Allergy ALGY-Rash Verified 07/19/22 14:23 Current Medications Generic Name Dose Route Start Last Admin Trade Name Freq PRN Reason Stop Dose Admin Sodium Chloride 1,000 mls @ 30 mls/hr 07/21/22 07:30 07/21/22 07:46 Sodium Chloride 0.9% IV 07/22/22 07:29 30 mls/hr .Q24H ROBERTO Administration PFSH Anesthesia Medical History (Updated 06/29/22 @ 15:37 by Barrie Doss DO) BPH (benign prostatic hyperplasia) Carotid stenosis, left DM type 2 (diabetes mellitus, type 2) GERD (gastroesophageal reflux disease) Hiatal hernia with gastroesophageal reflux History of chronic back pain History of hiatal hernia History of peptic ulcer disease HTN (hypertension), benign Hyperlipidemia associated with type 2 diabetes mellitus Migraine equivalent syndrome Osteoarthritis involving multiple joints on both sides of body SOB (shortness of breath) Vitreous flashes of both eyes Surgical History (Updated 06/29/22 @ 15:37 by Barrie Doss DO) H/O brain surgery H/O cataract extraction History of appendectomy History of cholecystectomy History of esophagogastroduodenoscopy (EGD) 10 + yrs ago at [facility] S/P hernia surgery Family History Sister Cancer Father Cancer Other CAD (coronary artery disease) Social History Smoking and tobacco status: never smoked Quit status (tobacco): has quit using tobacco Year quit tobacco: 1969 Former quit date comment: Smoked x 22 year 1/2 pack per day Alcohol intake: current Alcohol intake frequency: holidays/special occasions only Substance/Drug Use: never Marital status: Current occupational status: employed and retired Data Anesthesia Cardiac Studies: No Data to Display
--- NOTE | 2022-07-21 09:16 | W.PM.OPSUD ---
Surgery/Procedure H&P Update DATE OF PROCEDURE: July 21, 2022 DATE H&P PERFORMED: 06/29/22 H&P UPDATE INFORMATION: I have reviewed H&P completed within last 30 days, I have examined patient prior to procedure and No changes to prior documentation PLANNED PROCEDURE: Operation Date: 07/21/22 09:00 Proposed Procedures p [id number] egd K21.9, R11.0(Not Applicable) - Barrie Doss, DO
[2022-07-21 09:34] VITALS: BP 90/59; PULSE 87; RESP 16; TEMP 36.8; O2SAT 94
[2022-07-21 09:50] VITALS: BP 139/88; PULSE 82; RESP 18; O2SAT 95
--- NOTE | 2022-07-21 17:32 | ANE.PACU2 ---
Inpatient post-anesthesia follow up: Airway intact: Yes Vital signs: Temperature 98.2 F Pulse Rate 82 Respiratory Rate 18 Blood Pressure 139/88 Pulse Oximetry 95 Oxygen Delivery Me thod Room Air Oxygen Flow Rate 3 Fraction of Inspir ed Oxygen Hydration adequate: Yes Nausea and vomiting: No Pain level: 2 Mental status: Baseline
== END 2022-07-21 10:06 | disposition home or self-care (01) ==
PROVIDERS: PCP Family Medicine Adult Medicine; Visit Provider Surgery
PROC: 0DJ08ZZ Inspection of Upper Intestinal Tract, Via Natural or Artificial Opening Endoscopic (ICD-10-PCS; CPT 43235; principal; 2022-07-21 09:00)
DX: K21.9 Gastro-esophageal reflux disease without esophagitis (principal); R11.0 Nausea; J44.9 Chronic obstructive pulmonary disease, unspecified; I25.10 Atherosclerotic heart disease of native coronary artery without angina pectoris; I10 Essential (primary) hypertension; I25.2 Old myocardial infarction; I73.9 Peripheral vascular disease, unspecified; E11.9 Type 2 diabetes mellitus without complications; E78.5 Hyperlipidemia, unspecified; Z79.82 Long term (current) use of aspirin; Z79.84 Long term (current) use of oral hypoglycemic drugs; Z87.891 Personal history of nicotine dependence
CPT/HCPCS: 36416; 43239; 82962; 88305; J2704; J7030

== ENCOUNTER → 2022-08-05 16:28 | Outpatient (BNVA) | payer MEDICARE, SELFPAY | PROVIDERS: PCP Family Medicine Adult Medicine; Visit Provider Surgery | DX: Z09 Encounter for follow-up examination after completed treatment for conditions other than malignant neoplasm (principal) | CPT/HCPCS: 99024; 99212 ==

== ENCOUNTER → 2022-09-23 08:47 | Outpatient (BNVA) | payer MEDICARE, SELFPAY | PROVIDERS: PCP Family Medicine Adult Medicine; Visit Provider Family Medicine Adult Medicine | DX: I10 Essential (primary) hypertension (principal); E11.9 Type 2 diabetes mellitus without complications; E11.69 Type 2 diabetes mellitus with other specified complication; R11.0 Nausea; E78.5 Hyperlipidemia, unspecified | CPT/HCPCS: 80053; 80061; 83036; 84443; 85025 ==

== ENCOUNTER 2023-02-02 08:36 | Outpatient (CLI) | payer MEDICARE, SELFPAY ==
--- NOTE | 2023-02-02 09:00 | USCV_ITS ---
Clovis Jaquez Age: 82 Gender: M : 1940 Exam Date: 02/02/2023 08:51 Ordering Phys: Isai Castro MD (Andy) [email or web address] [place] [place]: CT Exam Location: [facility] [place] Indication: stenosis Risk Factors: Previous Vascular Surgery: Right Brachial BP: / Left Brachial BP: / Right Left Velocity (cm/s) Spectral Plaque Velocity (cm/s) Spectral Plaque Syst/Diast Broadening Syst/Diast Broadening 69.60/ 12.80 Prox CCA 86.50 / 8.70 73.30/ 15.60 Mid CCA 77.80 / 11.30 78.80/ 12.80 Distal CCA 63.80 / 9.40 103.50/18.30 Prox ICA 125.20/ 29.10 97.10/ 20.20 Mid ICA 118.70/ 26.80 57.80/ 18.20 Distal ICA 98.40 / 17.90 98.90 ECA 77.30 1.31 ICA/CCA 1.45 Antegrade Vertebral Antegrade 55.70/ 16.10 cm/s 44.20/ 11.20 cm/s Bi Subclavian Bi 108.1 263.9 0 0 FINDINGS Comparison:. 01/28/22 Mixture of calcified and noncalcified plaque in the bifurcations. Minimal elevation of systolic velocity bilateral ICA. Antegrade vertebral arteries. CONCLUSIONS Bilateral ICA stenosis less than 50%. Mild carotid atherosclerosis. Dr. Martha Colon DO (Electronically Signed) Final Date: 02 February 2023 12:38 S
== END 2023-02-02 08:37 | disposition home or self-care (01) ==
LOC: RAD 08:36
PROVIDERS: PCP Family Medicine Adult Medicine; Visit Provider Thoracic Surgery (Cardiothoracic Vascular Surgery)
DX: I65.23 Occlusion and stenosis of bilateral carotid arteries (principal)
CPT/HCPCS: 93880

== ENCOUNTER 2023-06-28 04:19 | Emergency (ER) | payer MEDICARE, SELFPAY ==
[2023-06-28] VITALS (7 sets, daily range): BP systolic 126–162; BP diastolic 64–86; PULSE 61–78; RESP 16–18; TEMP 36.4; O2SAT 90–96
--- NOTE | 2023-06-28 04:42 | CTR_ITS ---
PROCEDURE INFORMATION: Exam: CT Abdomen And Pelvis Without Contrast Exam date and time: 06/28/2023 4:56 AM Age: 82 years old Clinical indication: Abdominal pain; Flank; Left; Prior surgery; Surgery date: 6+ months; Surgery type: Gb, appendix, hernia; Additional info: Left flank pain TECHNIQUE: Imaging protocol: Computed tomography of the abdomen and pelvis without contrast. Radiation optimization: All CT scans at this facility use at least one of these dose optimization techniques: automated exposure control; mA and/or kV adjustment per patient size (includes targeted exams where dose is matched to clinical indication); or iterative reconstruction. COMPARISON: CT abdomen pelvis wo con [id number] 11/05/2016 9:58 AM RADIATION DOSE METRICS: Total DLP (mGy-cm): 850.8 FINDINGS: Lungs: There are minor atelectatic changes at the lung bases. Coronary arteries: Diffuse calcification of coronary arteries. Liver: Liver is otherwise unremarkable. No mass or enlargement. Gallbladder and bile ducts: Gallbladder is been removed. There is moderate pneumobilia unchanged. Bile ducts are not significantly dilated. Pancreas: Unremarkable. Main pancreatic duct is not significantly dilated. Spleen: Normal. No splenomegaly. Adrenal glands: Normal. No mass. Kidneys and ureters: 7 mm oval-shaped calculus left mid ureter resulting in mild left hydronephrosis. Kidneys are otherwise unremarkable. Stomach and bowel: Unremarkable. No obstruction. No mucosal thickening. Appendix: No evidence of appendicitis. Intraperitoneal space: Unremarkable. No free air. No significant fluid collection. Vasculature: Scattered atherosclerotic changes of the abdominal aorta and iliac vessels. No aortic aneurysm. There is some calcification with mild narrowing proximal segment SMA unchanged. Lymph nodes: Unremarkable. No enlarged lymph nodes. Urinary bladder: Unremarkable as visualized. Reproductive: Prostate gland is mildly enlarged. Bones/joints: Mild chronic compression fracture L2 unchanged. Chronic grade 1 isthmic spondylolisthesis L5-S1, stable. No acute bony abnormalities. Soft tissues: Unremarkable. CT/CT kidney stone [id number] IMPRESSION: 1. 7 mm obstructing calculus left mid ureter resulting in mild left hydronephrosis. 2. Additional chronic findings as above.
[2023-06-28] MEDS: ketorolac 30 mg/mL INJ IVP (04:47)
[2023-06-28 04:49] LABS: Basophils # 0.1 10^3/uL (0.0-0.1); Basophils % 0.8 %; Eosinophils # 0.4 10^3/uL (0.0-0.8); Eosinophils % 3.5 %; Hematocrit 45.2 % (37-53); Lymphocytes % 44.8 %; Mean Corpuscular HGB Conc 33.8 g/dL (30-55); Mean Corpuscular Hemoglobin 31.6 pg (27-33); Mean Corpuscular Volume 93.4 fl (82-101); Mean Platelet Volume 9.9 fL (7.4-10.4); Monocytes # 0.9 10^3/uL (0.2-0.9); Neutrophils % 42.6 %; Nucleated Red Blood Cells % 0 %; Platelet Count 153 10^3/cmm (157-399); Red Blood Count 4.84 10^6/uL (3.85-5.65); Red Cell Distribution Width 12.7 % (12.1-15.1); White Blood Count 11.06 10^3/uL (3.29-11.43)
[2023-06-28] MEDS: sodium chloride 0.9% 1,000 ML 999 ML IV (04:51)
[2023-06-28 05:00] LABS: Alanine Aminotransferase 19 U/L (0-41); Albumin Level 4.2 g/dL (3.5-5.2); Alkaline Phosphatase 45 U/L (40-130); Anion Gap 14.9 (5-19); Aspartate Amino Transferase 14 U/L (0-40); Blood Urea Nitrogen 19 mg/dL (8-23); Calcium 9.9 mg/dL (8.5-10.5); Carbon Dioxide 25 mmol/L (22-29); Chloride 103 mmol/L (98-107); Creatinine Clr Calc Pharmacy 65.6264; Globulin 2.6 g/dL (1.3-4.6); Glucose 187 mg/dL (65-115); Osmolality Calculated 295 mOsm/kg (285-295); Potassium 3.9 mmol/L (3.5-5.1); Sodium 139 mmol/L (136-145); Total Bilirubin 0.8 mg/dL (0.15-1.2); Total Protein 6.8 g/dL (6.6-8.7)
--- NOTE | 2023-06-28 05:37 | ED_ITS ---
Documented by User: Seamus Gabriel MD 06/28/23 06:13 HPI - Male Genitourinary 2 General: Chief complaint: Urogenital-Male Stated complaint: Possible Kidney Stones Time Seen by Provider: 06/28/23 04:39 History of Present Illness: 82-year-old male presents emergency depa rtment with complaints of left flank pain radiating around to his left lower quadrant of his abdomen. He states this pain woke him from his sleep is intermittent sharp and stabbing. He states he does have associated nausea. He states when the pain occurs it is a 9 out of 10. He states he does have a history of kidney stones in the past. Associated symptoms: Reports nausea Review of Systems 2 General: Reports: 10 or more systems reviewed and unremarkable except in HPI and below GI: Reports: abdominal pain and nausea : Reports: flank pain PFSH ED 2 PFSH: Medical History (Updated 06/28/23 @ 07:58 by Osman Gee DO) Chronic nausea History of hiatal hernia History of peptic ulcer disease Hyperlipidemia associated with type 2 diabetes mellitus SOB (shortness of breath) Migraine equivalent syndrome Vitreous flashes of both eyes Carotid stenosis, left Osteoarthritis involving multiple joints on both sides of body BPH (benign prostatic hyperplasia) HTN (hypertension), benign DM type 2 (diabetes mellitus, type 2) History of chronic back pain GERD (gastroesophageal reflux disease) Surgical History History of esophagogastroduodenoscopy (EGD) 10 + yrs ago at [facility] Home History of appendectomy S/P hernia surgery History of cholecystectomy H/O cataract extraction H/O brain surgery Family History Sister Cancer Father Cancer Other CAD (coronary artery disease) Social History Smoking and tobacco/nicotine status: never used tobacco/nicotine Quit status (tobacco/nicotine): has quit using Year quit tobacco: 1969 Former quit date comment: Smoked x 22 year 1/2 pack per day Alcohol intake: current Alcohol intake frequency: holidays/special occasions only Substance/Drug Use: never Marital status: Current occupational status: employed and retired Physical Exam 2 Narrative: EXAM NARRATIVE: Constitutional: the patient appears well nourished and of normal development. Vital signs as documented. No acute distress at present. Alert and oriented-to person, place, time and situation. Head, eyes, ears, nose, mouth, throat: Normocephalic, atraumatic. Pupils-equal, round, reactive to light. No scleral icterus. Normal-appearing external ears. Normal appearing nasal turbinates, no drainage. No obvious oral lesions, posterior oropharynx without erythema or exudates. Neck: Supple, trachea is midline, no lymphadenopathy, no jugular venous distension, thyromegaly, or carotid bruits. Carotid upstrokes are brisk bilaterally. Lungs: clear to auscultation to all lung garnett. Symmetrical rise and fall of chest, no obvious signs of increased work of breathing at present. Cardiac: Regular rate and rhythm, positive S1, S2. No murmurs, rubs or gallops that I can appreciate Abdomen: Soft, non-tender to palpation, normal active bowel sounds to all quadrants. No palpable masses, no organomegaly and abdominal bruits. Extremities: 2+ pulses in the upper extremities that are equal bilaterally, 2+ pulses in the lower extremities that are equal bilaterally. Non-edematous. Moves all extremities well, sensation to all extremities are noted. Skin: Warm, dry, intact. Back: Normal alignment, left CVA tenderness, Course 2 Vital Signs: Vital signs: Vital Signs Temperature 97.6 F 06/28/23 08:23 Pulse Rate 61 06/28/23 08:23 Respiratory Rate 18 06/28/23 08:23 Blood Pressure 147/74 06/28/23 08:23 Pulse Oximetry 94 06/28/23 08:23 Oxygen Delivery Me thod Room Air 06/28/23 07:41 MDM - Male Medical Decision Making Physical exam completed and documented I will obtain a CBC and CMP as well as a CT scan of the abdomen pelvis to rule out renal calculi, I will also obtain a urinalysis. I have provided the patient Toradol and IV fluid rehydration and he states improvement of his pain. Medical Records I reviewed the patient's medical records. Lab Data I reviewed the patient's lab results. 06/28/23 04:35 06/28/23 04:35 Radiology Impressions Abdomen/Pelvis CT 06/28/23 04:42 IMPRESSION: 1. 7 mm obstructing calculus left mid ureter resulting in mild left hydronephrosis. 2. Additional chronic findings as above. Laboratory Results WBC 11.06 10^3/uL (3.29-11.43) 06/28/23 04:35 RBC 4.84 10^6/uL (3.85-5.65) 06/28/23 04:35 Hgb 15.30 g/dL (11.27-16.99) 06/28/23 04:35 Hct 45.2 % (37-53) 06/28/23 04:35 MCV 93.4 fl (82-101) 06/28/23 04:35 MCH 31.6 pg (27-33) 06/28/23 04:35 MCHC 33.8 g/dL (30-55) 06/28/23 04:35 RDW 12.7 % (12.1-15.1) 06/28/23 04:35 Plt Count 153 10^3/cmm (157-399) L 06/28/23 04:35 MPV 9.9 fL (7.4-10.4) 06/28/23 04:35 Neut % (Auto) 42.6 % 06/28/23 04:35 Lymph % (Auto) 44.8 % 06/28/23 04:35 Osborne % (Auto) 8.0 % 06/28/23 04:35 Eos % (Auto) 3.5 % 06/28/23 04:35 Baso % (Auto) 0.8 % 06/28/23 04:35 Neut # (Auto) 4.70 10^3/uL (1.8-7.7) 06/28/23 04:35 Lymph # (Auto) 5.0 10^3/uL (0.8-4.8) H 06/28/23 04:35 Osborne # (Auto) 0.9 10^3/uL (0.2-0.9) 06/28/23 04:35 Eos # (Auto) 0.4 10^3/uL (0.0-0.8) 06/28/23 04:35 Baso # (Auto) 0.1 10^3/uL (0.0-0.1) 06/28/23 04:35 Nucleated RBC % (auto) 0 % 06/28/23 04:35 Nucleated RBCs # 0.0 /100WBC 06/28/23 04:35 Sodium 139 mmol/L (136-145) 06/28/23 04:35 Potassium 3.9 mmol/L (3.5-5.1) 06/28/23 04:35 Chloride 103 mmol/L (98-107) 06/28/23 04:35 Carbon Dioxide 25 mmol/L (22-29) 06/28/23 04:35 Anion Gap 14.9 (5-19) 06/28/23 04:35 BUN 19 mg/dL (8-23) 06/28/23 04:35 Creatinine 1.0 mg/dL (0.7-1.2) 06/28/23 04:35 GFR Calculation Not Reportable 06/28/23 04:35 Glucose 187 mg/dL (65-115) H 06/28/23 04:35 Calculated Osmolality 295 mOsm/kg (285-295) 06/28/23 04:35 Calcium 9.9 mg/dL (8.5-10.5) 06/28/23 04:35 Total Bilirubin 0.8 mg/dL (0.15-1.2) 06/28/23 04:35 AST 14 U/L (0-40) 06/28/23 04:35 ALT 19 U/L (0-41) 06/28/23 04:35 Alkaline Phosphatase 45 U/L (40-130) 06/28/23 04:35 Total Protein 6.8 g/dL (6.6-8.7) 06/28/23 04:35 Albumin 4.2 g/dL (3.5-5.2) 06/28/23 04:35 Globulin 2.6 g/dL (1.3-4.6) 06/28/23 04:35 Urine Color Yellow (Yellow) 06/28/23 05:47 Urine Appearance Sl hazy (CLEAR) A 06/28/23 05:47 Urine pH 5 (5-7) 06/28/23 05:47 Ur Specific Brantwood 1.025 (1.005-1.030) 06/28/23 05:47 Urine Protein Neg (Negative) 06/28/23 05:47 Urine Glucose (UA) 4+ (Normal) H 06/28/23 05:47 Urine Ketones 1+ (Negative) H 06/28/23 05:47 Urine Blood 3+ (Negative) H 06/28/23 05:47 Urine Nitrate Negative (Negative) 06/28/23 05:47 Urine Bilirubin Neg (Negative) 06/28/23 05:47 Urine Urobilinogen Neg mg/dL (Negative) 06/28/23 05:47 Ur Leukocyte Esterase Negative (Negative) 06/28/23 05:47 Urine RBC 25-40 /hpf (0-2) H 06/28/23 05:47 Urine WBC None /hpf (0-5) 06/28/23 05:47 Ur Squamous Epith Cells None /hpf (0-5) 06/28/23 05:47 Amorphous Sediment Not Reportable 06/28/23 05:47 Urine Bacteria Trace /hpf (NONE) 06/28/23 05:47 Urine Mucus 2+ /hpf 06/28/23 05:47 All radiology interpretation(s) finalized by discharge Discharge Plan Discharge Patient Disposition: Home Clinical Impression: Ureterolithiasis Condition: Stable Prescriptions: New ketorolac 10 mg tablet 10 mg PO Q6H PRN (Reason: pain) 5 Days Qty: 20 0RF No Action aspirin [Adult Low Dose Aspirin] 81 mg tablet,delayed release (DR/EC) 81 mg PO DAILY Spiriva Respimat 1.25 mcg/actuation mist 2 puff inhalation DAILY Qty: 4 5RF pioglitazone [Actos] 15 mg tablet 15 mg PO DAILY Qty: 30 5RF pantoprazole 40 mg tablet,delayed release (DR/EC) 40 mg PO BID Qty: 60 3RF (DME) lancets Misc See Rx Instructions .Route Qty: 400 3RF Rx Instructions: As directed metformin 1,000 mg tablet See Rx Instructions .ROUTE .COMPLEX Qty: 180 3RF Dose Instruction: TAKE 1 TABLET TWICE DAILY Rx Instructions: TAKE 1 TABLET TWICE DAILY simvastatin 40 mg tablet 40 mg PO DAILY Qty: 90 3RF glipizide 5 mg tablet See Rx Instructions .ROUTE .COMPLEX Qty: 180 2RF Dose Instruction: TAKE 1 TABLET TWICE DAILY FOR DIABETES Rx Instructions: TAKE 1 TABLET TWICE DAILY FOR DIABETES metoprolol tartrate 50 mg tablet 50 mg PO BID Qty: 180 1RF meloxicam 7.5 mg tablet 7.5 mg PO DAILY PRN (Reason: arthritis/pain) Qty: 90 1RF (DME) True Metrix Glucose Test Strip Strip See Rx Instructions .ROUTE .COMPLEX Qty: 100 3RF Dose Instruction: TEST BLOOD SUGAR EVERY DAY DIRECTED Rx Instructions: TEST BLOOD SUGAR EVERY DAY DIRECTED lisinopril 2.5 mg tablet 2.5 mg PO DAILY Qty: 90 2RF tamsulosin 0.4 mg capsule 0.4 mg PO DAILY Qty: 90 1RF diphenhydramine HCl [Unisom SleepGels] 50 mg Capsule 50 mg PO BEDTIME PRN (Reason: Insomnia) coQ10 (ubiquinol) 100 mg Capsule 100 mg PO DAILY Discharge Orders: Discharge ED (Routine); Ordered 06/28/23 Ordered By: Osman Gee Referrals: Sushil Islas MD [Primary Care Provider] - 1 week Patient Instructions: Kidney Stones (ED), How to Strain Your Urine (ED) Activity Restrictions/Additional Instructions: Your CT scan showed you have a kidney stone in your left ureter which is a tube between your kidney and your bladder. The stone is 7 mm. You will be referred to urology by case management. They should be calling you the next several days. Otherwise please take all your medicine as prescribed and follow-up with your primary care doctor within the next 7 to 10 days. Coding Level of Care Code ED Tyre Retreader for Chg Fwd Documented by User: Osman Gee DO 06/28/23 15:48 HPI - Male Genitourinary 2 General: Chief complaint: Urogenital-Male Stated complaint: Possible Kidney Stones Time Seen by Provider: 06/28/23 04:39 [facility] ED 2 [facility]: Medical History (Updated 06/28/23 @ 07:58 by Osman Gee DO) Chronic nausea History of hiatal hernia History of peptic ulcer disease Hyperlipidemia associated with type 2 diabetes mellitus SOB (shortness of breath) Migraine equivalent syndrome Vitreous flashes of both eyes Carotid stenosis, left Osteoarthritis involving multiple joints on both sides of body BPH (benign prostatic hyperplasia) HTN (hypertension), benign DM type 2 (diabetes mellitus, type 2) History of chronic back pain GERD (gastroesophageal reflux disease) Surgical History History of esophagogastroduodenoscopy (EGD) 10 + yrs ago at [facility] Home History of appendectomy S/P hernia surgery History of cholecystectomy H/O cataract extraction H/O brain surgery Family History Sister Cancer Father Cancer Other CAD (coronary artery disease) Social History Smoking and tobacco/nicotine status: never used tobacco/nicotine Quit status (tobacco/nicotine): has quit using Year quit tobacco: 1969 Former quit date comment: Smoked x 22 year 1/2 pack per day Alcohol intake: current Alcohol intake frequency: holidays/special occasions only Substance/Drug Use: never Marital status: Current occupational status: employed and retired Course 2 Vital Signs: Vital signs: Vital Signs Temperature 97.6 F 06/28/23 08:23 Pulse Rate 61 06/28/23 08:23 Respiratory Rate 18 06/28/23 08:23 Blood Pressure 147/74 06/28/23 08:23 Pulse Oximetry 94 06/28/23 08:23 Oxygen Delivery Me thod Room Air 06/28/23 07:41 MDM - Male Medical Decision Making Physical exam completed and documented I will obtain a CBC and CMP as well as a CT scan of the abdomen pelvis to rule out renal calculi, I will also obtain a urinalysis. I have provided the patient Toradol and IV fluid rehydration and he states improvement of his pain. Patient transferred over to my care at shift change. We are waiting on CT scan, CT scan showed 7 mm obstructing left mid ureteral stone resulting in mild left hydro, white count is normal, BUN/creatinine 19 and 1.0, Lab Data 06/28/23 04:35 06/28/23 04:35 Radiology Impressions Abdomen/Pelvis CT 06/28/23 04:42 IMPRESSION: 1. 7 mm obstructing calculus left mid ureter resulting in mild left hydronephrosis. 2. Additional chronic findings as above. Laboratory Results WBC 11.06 10^3/uL (3.29-11.43) 06/28/23 04:35 RBC 4.84 10^6/uL (3.85-5.65) 06/28/23 04:35 Hgb 15.30 g/dL (11.27-16.99) 06/28/23 04:35 Hct 45.2 % (37-53) 06/28/23 04:35 MCV 93.4 fl (82-101) 06/28/23 04:35 MCH 31.6 pg (27-33) 06/28/23 04:35 MCHC 33.8 g/dL (30-55) 06/28/23 04:35 RDW 12.7 % (12.1-15.1) 06/28/23 04:35 Plt Count 153 10^3/cmm (157-399) L 06/28/23 04:35 MPV 9.9 fL (7.4-10.4) 06/28/23 04:35 Neut % (Auto) 42.6 % 06/28/23 04:35 Lymph % (Auto) 44.8 % 06/28/23 04:35 Osborne % (Auto) 8.0 % 06/28/23 04:35 Eos % (Auto) 3.5 % 06/28/23 04:35 Baso % (Auto) 0.8 % 06/28/23 04:35 Neut # (Auto) 4.70 10^3/uL (1.8-7.7) 06/28/23 04:35 Lymph # (Auto) 5.0 10^3/uL (0.8-4.8) H 06/28/23 04:35 Osborne # (Auto) 0.9 10^3/uL (0.2-0.9) 06/28/23 04:35 Eos # (Auto) 0.4 10^3/uL (0.0-0.8) 06/28/23 04:35 Baso # (Auto) 0.1 10^3/uL (0.0-0.1) 06/28/23 04:35 Nucleated RBC % (auto) 0 % 06/28/23 04:35 Nucleated RBCs # 0.0 /100WBC 06/28/23 04:35 Sodium 139 mmol/L (136-145) 06/28/23 04:35 Potassium 3.9 mmol/L (3.5-5.1) 06/28/23 04:35 Chloride 103 mmol/L (98-107) 06/28/23 04:35 Carbon Dioxide 25 mmol/L (22-29) 06/28/23 04:35 Anion Gap 14.9 (5-19) 06/28/23 04:35 BUN 19 mg/dL (8-23) 06/28/23 04:35 Creatinine 1.0 mg/dL (0.7-1.2) 06/28/23 04:35 GFR Calculation Not Reportable 06/28/23 04:35 Glucose 187 mg/dL (65-115) H 06/28/23 04:35 Calculated Osmolality 295 mOsm/kg (285-295) 06/28/23 04:35 Calcium 9.9 mg/dL (8.5-10.5) 06/28/23 04:35 Total Bilirubin 0.8 mg/dL (0.15-1.2) 06/28/23 04:35 AST 14 U/L (0-40) 06/28/23 04:35 ALT 19 U/L (0-41) 06/28/23 04:35 Alkaline Phosphatase 45 U/L (40-130) 06/28/23 04:35 Total Protein 6.8 g/dL (6.6-8.7) 06/28/23 04:35 Albumin 4.2 g/dL (3.5-5.2) 06/28/23 04:35 Globulin 2.6 g/dL (1.3-4.6) 06/28/23 04:35 Urine Color Yellow (Yellow) 06/28/23 05:47 Urine Appearance Sl hazy (CLEAR) A 06/28/23 05:47 Urine pH 5 (5-7) 06/28/23 05:47 Ur Specific [place] 1.025 (1.005-1.030) 06/28/23 05:47 Urine Protein Neg (Negative) 06/28/23 05:47 Urine Glucose (UA) 4+ (Normal) H 06/28/23 05:47 Urine Ketones 1+ (Negative) H 06/28/23 05:47 Urine Blood 3+ (Negative) H 06/28/23 05:47 Urine Nitrate Negative (Negative) 06/28/23 05:47 Urine Bilirubin Neg (Negative) 06/28/23 05:47 Urine Urobilinogen Neg mg/dL (Negative) 06/28/23 05:47 Ur Leukocyte Esterase Negative (Negative) 06/28/23 05:47 Urine RBC 25-40 /hpf (0-2) H 06/28/23 05:47 Urine WBC None /hpf (0-5) 06/28/23 05:47 Ur Squamous Epith Cells None /hpf (0-5) 06/28/23 05:47 Amorphous Sediment Not Reportable 06/28/23 05:47 Urine Bacteria Trace /hpf (NONE) 06/28/23 05:47 Urine Mucus 2+ /hpf 06/28/23 05:47 Discharge Plan Discharge Patient Disposition: Home Clinical Impression: Ureterolithiasis Condition: Stable Prescriptions: New ketorolac 10 mg tablet 10 mg PO Q6H PRN (Reason: pain) 5 Days Qty: 20 0RF No Action aspirin [Adult Low Dose Aspirin] 81 mg tablet,delayed release (DR/EC) 81 mg PO DAILY Spiriva Respimat 1.25 mcg/actuation mist 2 puff inhalation DAILY Qty: 4 5RF pioglitazone [Actos] 15 mg tablet 15 mg PO DAILY Qty: 30 5RF pantoprazole 40 mg tablet,delayed release (DR/EC) 40 mg PO BID Qty: 60 3RF (DME) lancets Misc See Rx Instructions .Route Qty: 400 3RF Rx Instructions: As directed metformin 1,000 mg tablet See Rx Instructions .ROUTE .COMPLEX Qty: 180 3RF Dose Instruction: TAKE 1 TABLET TWICE DAILY Rx Instructions: TAKE 1 TABLET TWICE DAILY simvastatin 40 mg tablet 40 mg PO DAILY Qty: 90 3RF glipizide 5 mg tablet See Rx Instructions .ROUTE .COMPLEX Qty: 180 2RF Dose Instruction: TAKE 1 TABLET TWICE DAILY FOR DIABETES Rx Instructions: TAKE 1 TABLET TWICE DAILY FOR DIABETES metoprolol tartrate 50 mg tablet 50 mg PO BID Qty: 180 1RF meloxicam 7.5 mg tablet 7.5 mg PO DAILY PRN (Reason: arthritis/pain) Qty: 90 1RF (DME) True Metrix Glucose Test Strip Strip See Rx Instructions .ROUTE .COMPLEX Qty: 100 3RF Dose Instruction: TEST BLOOD SUGAR EVERY DAY DIRECTED Rx Instructions: TEST BLOOD SUGAR EVERY DAY DIRECTED lisinopril 2.5 mg tablet 2.5 mg PO DAILY Qty: 90 2RF tamsulosin 0.4 mg capsule 0.4 mg PO DAILY Qty: 90 1RF diphenhydramine HCl [Unisom SleepGels] 50 mg Capsule 50 mg PO BEDTIME PRN (Reason: Insomnia) coQ10 (ubiquinol) 100 mg Capsule 100 mg PO DAILY Discharge Orders: Discharge ED (Routine); Ordered 06/28/23 Ordered By: Osman Gee Referrals: Sushil Islas MD [Primary Care Provider] - 1 week Patient Instructions: Kidney Stones (ED), How to Strain Your Urine (ED) Activity Restrictions/Additional Instructions: Your CT scan showed you have a kidney stone in your left ureter which is a tube between your kidney and your bladder. The stone is 7 mm. You will be referred to urology by case management. They should be calling you the next several days. Otherwise please take all your medicine as prescribed and follow-up with your primary care doctor within the next 7 to 10 days. Coding Level of Care Code ED Tyre Retreader for Sebastien Albright
[2023-06-28 06:04] LABS: Add Urine Microscopic? YES; Bilirubin Urine Neg (Negative); Blood Urine 3+ (Negative); Glucose Urine UA 4+ (Normal); Ketones Urine 1+ (Negative); Leukocyte Esterase Urine Negative (Negative); Nitrate Urine Negative (Negative); Protein Urine Neg (Negative); Specific Gravity, Urine 1.025 (1.005-1.030); Urine Appearance SL Hazy (CLEAR); Urine Color Yellow (Yellow); Urobilinogen Urine Neg (Negative); pH Urine 5 (5-7)
[2023-06-28 06:05] LABS: Add Urine Culture? Yes; Bacteria Urine TRACE /hpf; Mucus Urine 2+ /hpf; RBC Urine 25-40 /hpf (0-2)
--- NOTE | 2023-06-28 08:29 | DCPLANNER ---
Referral sent to [facility] urology for - Urology request
== END 2023-06-28 08:24 | disposition home or self-care (01) ==
PROVIDERS: Emergency Provider Internal Medicine; PCP Family Medicine Adult Medicine
DX: N13.2 Hydronephrosis with renal and ureteral calculous obstruction (principal); Z79.82 Long term (current) use of aspirin; Z79.84 Long term (current) use of oral hypoglycemic drugs; E78.5 Hyperlipidemia, unspecified; E11.9 Type 2 diabetes mellitus without complications; I10 Essential (primary) hypertension
CPT/HCPCS: 74176; 80053; 81001; 85025; 87086; 96361; 96374; 99285; J1885; J7030

== ENCOUNTER 2024-11-25 06:26 | Inpatient (IN) | payer MEDICARE, SELFPAY ==
--- OUTSIDE RECORDS SUMMARY | 2023-07-05 08:00 | XMS_ITS ---
Author Organization [facility] Address [address] [place] [address] Care Team Providers Care Quality Review Specialist Name Role Phone Roshan HICKS, Sushil Primary Care Provider Unavailab eden YONIS BE Unavailable [phone] DELMAR COATES Unavailable [phone] REASON FOR VISIT URS Stone Manip Stent Placement @ [facility] Encounters Encounter Location Date Provider Diagnosis [facility] [address] [facility] [place] [address] 07/05/2023 DELMAR COATES Plan Of Treatment No Information Progress Notes * Clovis SWENSON WDOB:[birth year] (84 yo M)Acc No.[id number]:07/05/2023 Patient: Clovis CAVAZOS Provider: Suzie COATES MD :1940 A ge:82 Y S ex:Male Date:07/05/2023 Address:[address] [place], [place] [phone] Pcp:Sushil Islas MD * Billing Information: * Visit Code: * Procedure Codes: * Electronic signature of AUST IN MD AMINATA on 11/25/2024 at 06:30 AM CDT Sign off status: Pending * Provider: Suzie COATES MD Date: 07/05/2023 Generated for Ninii ng/Fabarbarag/eTransmitting on: 11/25/2024 06:30 AM CDT
--- OUTSIDE RECORDS SUMMARY | 2023-07-28 12:00 | XMS_ITS ---
Author Organization [facility] Address [address] [place] [address] Care Team Providers Care Environmental Projects Advisor Name Role Phone Roshan HICKS, Sushil Primary Care Provider Unavailab YONIS Naranjo Unavailable [phone] KIRK LEW Unavailable [phone] REASON FOR VISIT 3-4 WK W/KUB PER PASSED KIDNEY STONEE Encounters Encounter Location Date Provider Diagnosis [facility] [address] [place] [address] 07/28/2023 KIRK LEW Plan Of Treatment No Information Progress Notes * Clovis SWENSON WDOB:[birth year] (84 yo M)Acc No.[id number]:07/28/2023 Progress Notes Patient: Clovis CAVAZOS Provider: LAUREN Baker :1940 A ge:82 Y S ex:Male Date:07/28/2023 Address:[address] [place], [place] [id number] Pcp:Sushil Islas MD Subjective: * Chief Complaints: * 1 . 3-4 WK W/KUB PER PASSED KIDNEY STONEE. * Medical History: Objective: * Vitals: Assessment: Plan: * Treatment: * Billing Information: * Visit Code: * Procedure Codes: * Electronic signature of KIRK LEW APRN on 11/25/2024 at 06:29 AM CDT Sign off status: Pending * Provider: LAUREN Baker Date: 0 07/28/2023 Generated for Shahida wei/Faxing/eTransmitting on: 0 11/25/2024 06:29 AM CDT
[2024-11-25] VITALS (30 sets, daily range): BP systolic 64–208; BP diastolic 39–125; PULSE 72–116; RESP 13–33; TEMP 37.1–38.1; O2SAT 76–98; BMI 29.7; BMI 28.3
--- OUTSIDE RECORDS SUMMARY | 2024-11-25 06:30 | XMS_ITS | Patient Health Record ---
Author Organization [facility] Address [address] [place] [address] Care Team Providers Care Manager Business Development Hospice Name Role Phone Sushil Islas MD Primary Care Provider YONIS Nelson Unavailable [phone] Allergies Allergen (clinical drug ingredient) Drug/Non Drug Allergy documented on EMR Reaction Allergy Type Onset Date Status Penicillin Unknown Drug Allergy Active Reason For Referral No Information Medications Medication SIG (Take, Route, Frequency, Duration) Notes Start Date End Date Status Tamsulosin HCl 0.4 MG 1 capsule Orally O nce a day Active Co Q 10 100 MG as directed Orally Active Spiriva Respimat 1.25 MCG/ACT 2 puffs Inhalation Once a day Active diphenhydrAMINE HCl Childrens 12.5 MG/5ML as directed Orally Active Aspirin 81 MG 1 tablet Orally Once a day Active Pantoprazole Sodium 40 MG as directed Intravenous Active Pioglitazone HCl 15 MG 1 tablet Orally O nce a day Active Simvastatin 40 MG 1 tablet in the even ing Orally Once a day Active metFORMIN HCl 1000 MG 1 tablet with a me al Orally Once a day Active Metoprolol Tartrate 50 MG 1 tablet with food Orally Twice a day Active glipiZIDE 5 MG 1 tablet 30 minutes before breakfast Orally Once a day Active Lisinopril 2.5 MG 1 tablet Orally Once a day Active Meloxicam 7.5 MG 1 tablet Orally Once a day Active Social History Tobacco Use: Social History Observation Description Date Details (start date - stop date) Former Smoker NA - NA Tobacco Control (Standard) Question Answer Notes Tobacco use: Former smoker Problems Problem Type SNOMED Code ICD Code Onset Dates Problem Status W/U Status Risk Notes Problem Ureteral stone with hydronephrosis (N13.2) Active confirmed Problem Kidney stone (68524815) Kidney calculi (N20.0) Active confirmed Problem Hydronephrosis (33433097) Hydronephrosis (N13.30) Active confirmed Problem Type 2 diabetes mellitus well controlled (393249209) Controlled diabetes mellitus type II without complication (E11.9) Active confirmed Plan Of Treatment Pending Test Test Name Order Date KUB, X-Ray: Abdomen, Kidney, Urete r, bladder 07/05/2023 Electrocardiogram (ECG) 07/01/2023 Chest X-ray PA and lateral [id number] Insurance Providers Payer Name Payer Address Payer Phone Subscriber Number Group Number Insured Name Patient Relationship to Insured Coverage Start Date Coverage End Date [employer] Medicare Replacement [address] [address] [place], [place] [id number] Clovis Boykin Self - patient is the insured Medical (General) History Medical History History ICD Code arthritis coronary artery disease diabetes high cholesterol kidney stone back pain erectile dysfunction incontinence urge nocturia low libido Surgical History Surgery Date(Month/Year) hernia repair appendectomy cholecystectomy teeth extraction bilateral cataract removal
--- OUTSIDE RECORDS SUMMARY | 2024-11-25 06:30 | XMS_ITS | Patient Health Record ---
Author Organization [facility] Address [address] [place] [address] Care Team Providers Care Primary Care Pediatrician Name Role Phone Michelle Morales Primary Care Provider Johnathan Luna [phone] Allergies Allergen (clinical drug ingredient) Drug/Non Drug Allergy documented on EMR Reaction Allergy Type Onset Date Status Penicillin rash Drug Allergy Active Reason For Referral No Information Medications Medication SIG (Take, Route, Frequency, Duration) Notes Start Date End Date Status Rosuvastatin Calcium 40 MG Tablet 1 tablet Orally daily at bedtime; Duration: 90 days 05/16/2019 Active Alendronate Sodium 70 MG Tablet 1 tablet 30 minutes before the first food, beverage or medicine of the day with plain water Orally Not-Taking Gabapentin 300 MG Capsule TAKE 2 CAPSULE S AT SUPPER; Duration: 90 Active Tricor 145 MG Tablet 1 tablet with food Orally Once a day in evening with 100mg of CoQ10; Duration: 90 days Active Baclofen 5 MG Tablet 1 tablet as needed Orally at bedtime; Duration: 14 days Active Metoprolol Succinate ER 25 MG Tablet Extended Release 24 Hour 1 tablet Orally Once a day; Duration: 90 days 05/02/2013 Active Nitrostat 0.4 MG Tablet Sublingual as directed Sublingual Not-T aking Omeprazole 20 MG Tablet Delayed Release 1 tablet 30 minutes before morning meal Orally Once a day Active metFORMIN HCl 1000 MG Tablet 1 tablet Orally twice daily; Duration: 90 days 09/20/2013 Active Famotidine 20 MG Tablet 1 tablet Orally twice a day; Duration: 90 days Active True Metrix Air Glucose Meter w/Device Kit as directed in vitro once a day; Duration: 30 days Active Aspirin 81 MG Tablet Delayed Release 2 tablets Oral once a day; Duration: 30 08/18/2011 Active Ramipril 2.5 MG Capsule 1 capsule Oral t wice daily; Duration: 90 days Active Tamsulosin HCl 0.4 MG Capsule TAKE 1 CAPSULE EVERY DAY; Duration: 90 Active True Metrix Blood Glucose Test - Strip TEST BLOOD SUGAR FOUR TIMES DAILY In Vitro four times a day; Duration: 90 days Active Immunizations Vaccine Route Administration Date Status Comme connie Meyers Quadrivalent Influenza Vaccine 3 years+ IM Intramuscular 01/01/2020 Administered Flu vaccine no Preserv 3 and > IM Intramuscular 01/03/2013 Administered Social History Tobacco Use: Social History Observation Description Date Details (start date - stop date) Never Smoker NA - NA Social History Drugs/Alcohol: Social Info Question Answer Notes Alcohol Screen (Audit-C) Did you have a drink containing alcohol in the past year? No Points 0 Interpretation Negative Drugs Have you used drugs other than those for medical reasons in the past 12 months? No Household: Social Info Question Answer Notes Household Marital status: Level of education: finished high school Tobacco Use: Social Info Question Answer Notes xTobacco Use/Smoking Are you a nonsmoker Additional Details Category Social Info Options Details Drugs/Alcohol: Do you smoke marijuana? De nies Do you drink alcohol? No Problems Problem Type SNOMED Code ICD Code Onset Dates Problem Status W/U Status Risk Notes Problem Herpetic brinda (47132148) Herpetic brinda (054.6) 2013 Problem resolved confirmed [id number]- Problem Hypercalcemia (03709443) Hypercalcemia (275.42) 2016 Problem resolved confirmed [id number]- Problem Dehydration (57078183) Dehydration (276.51) 2018 Problem resolved confirmed [id number]- Problem Acute non-suppurativ e otitis media - serous (048025168) Acute serous otitis media (381.01) 2014 Problem resolved confirmed [id number]- Problem Gross hematuria (982389392) Gross hematuria (599.71) 2016 Problem resolved confirmed [id number]- Problem Pain in thoracic spine (362981731) Pain in thoracic spine (724.1) 2015 Problem resolved confirmed [id number]- Problem Memory loss (63706052) Memory loss (780.93) 2017 Problem resolved confirmed [id number]- Problem Cough (82328270) Cough (786.2) 2012 Problem resolved confirmed [id number]- Problem Diarrhea (84958501) Diarrhea (787.91) 2011 Problem resolved confirmed [id number]- Problem Slowing of urinary stream (02005087) Slowing of urinary stream (788.62) 2012 Problem resolved confirmed [id number]- Problem Polyneuropathy due t o type 2 diabetes mellitus (844877306) Type 2 diabetes mellitus with diabetic polyneuropathy (E11.42) Active confirmed Problem Chronic pain (59012940) Other chronic pain (G89.29) Active confirmed Problem Long-term current us e of insulin (945562199) 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) Active confirmed Problem Lower urinary tract symptoms due to benign prostatic hypertrophy (49286212198357) Benign prostatic hyperplasia with lower urinary tract symptoms (N40.1) Active confirmed Problem Migraine with aura (7984520) Migraine with aura and without status migrainosus, not intractable (G43.109) Active confirmed Problem Androgen deficiency (79747206) Testosterone deficiency (257.2) 2015 Problem resolved confirmed [id number]- Problem Diverticulitis (440830369) Diverticulitis (562.11) 2016 Problem resolved confirmed [id number]- Problem Hyperlipidemia (32803815) Hyperlipidemia (272.4) 2011 Problem resolved confirmed [id number]- Problem Dizziness (892094341) Dizziness (780.4) 0 2013 Active confirmed [id number]- Problem Hypercholesterolemia (21207818) Hypercholesterolemia (E78.00) Active confirmed Problem Orchitis and epididymitis (106659013) Epidymitis, unspecified (604.90) 2015 Problem resolved confirmed [id number]- Problem Headache (02667486) Headache (307.81) 2017 Problem resolved confirmed [id number]- Problem Hypercholesterolemia (50699960) Hypercholesterolemia (272.0) 2016 Problem resolved confirmed [id number]-[id number]- Problem Screening for ca ncer - other (V76.49) 2012 Problem resolved confirmed [id number]-[id number]- Problem Shortness of breath (972796109) Shortness of breath (786.09) 2018 Problem resolved confirmed [id number]-[id number]- Problem Multiple thoraci c compression fractures (805.2) 2015 Active confirmed [id number]- Problem Osteopenia (379066022) Osteopenia (733.90) 2017 Problem resolved confirmed [id number]-[id number]- Problem Acute exacerbation o f chronic obstructive airways disease (046155826) Chronic bronchitis, obstructive, with (acute) exacerbation (491.21) 2012 Problem resolved confirmed [id number]- Problem Chest pain (20399137) Chest pain (786.51) 2017 Problem resolved confirmed [id number]-[id number]- Problem Influenza with non-respiratory manifestation (16006544) Flu like symptoms (487.8) 2016 Problem resolved confirmed [id number]-[id number]- Problem Insomnia (999815084) Insomnia (307.41) 2012 Problem resolved confirmed [id number]-[id number]- Problem Precordial pain (41528542) Precordial chest pain (786.51) 2018 Problem resolved confirmed [id number]-[id number]- Problem Abdominal pain (15756429) Abdominal pain (789.09) 2012 Problem resolved confirmed [id number]-[id number]- Problem Needs influenza immunization (587355723) Vaccination against other viral diseases, Influenza (V04.81) 2012 Problem resolved confirmed [id number]-[id number]- Problem Benign prostatic hypertrophy (217414766) BPH (600.00) 2016 Problem resolved confirmed [id number]-[id number]- Problem Osteoarthritis of hi p (982249019) 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) 2017 Active confirmed [id number]-[id number]- Problem Osteoarthritis of shoulder (47156362) 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.11) 2014 Problem resolved confirmed [id number]-[id number] [id number]- Problem Neoplasm of uncertai n behavior of skin (93021435) Atypical skin lesion (238.2) 2018 Problem resolved confirmed [id number]-[id number]- Problem Bursitis of hip (16294076) Bursitis of hip (726.5) 2017 Problem resolved confirmed [id number]-[id number] [id number]- Problem Knee pain (8838328059) Knee pain (719.46) 2012 Problem resolved confirmed [id number]-[id number]- Problem Inguinal hernia (307625563) Uncomplicated right inguinal hernia (550.90) 2015 Problem resolved confirmed [id number]-[id number]- Problem Epidermal inclusion cyst (955693989) Epidermal inclusion cyst (706.2) 2015 Problem resolved confirmed [id number]-[id number]- Problem Left ventricular hypertrophy (53299201) LVH (429.3) 2011 Problem resolved confirmed [id number]-[id number]- Problem Abnormal laborat ory test findings without diagnosis (796.4) 2018 Problem resolved confirmed [id number]-[id number]- Problem Chronic insomnia (114689216) Chronic insomnia (307.42) 2017 Problem resolved confirmed [id number]-[id number]- Problem Administration of vaccine product containing only Streptococcus pneumoniae antigen (procedure) (15321819) Vaccination against pneumococcal pneumonia (V03.82) 2011 Problem resolved confirmed [id number]-[id number]- Problem Diverticulitis of colon (890456611) Diverticulitis of colon (562.11) 2016 Problem resolved confirmed [id number]-[id number]- Problem Hip pain (76608157) Hip pain (719.45) 2016 Problem resolved confirmed [id number]-[id number] [id number]- Problem Essential hypertension (84036875) Essential hypertension (401.1) 2016 Active confirmed [id number]-[id number]- Problem Gastroesophageal reflux disease (541356923) GERD (530.81) 2011 Problem resolved confirmed [id number]-[id number]- Problem Nausea (844886463) Nausea (787.02) 2012 Problem resolved confirmed Bahrat-[id number]- Problem Neurologic disorder associated with type II diabetes mellitus (916264969) 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 (250.62) 2013 Problem resolved confirmed Bharat-[id number]- Problem Renal calculus (02584545) Renal calculus (592.0) 2015 Problem resolved confirmed Bharat-[id number]- Problem Thrush (50066905) Thrush (112.0) 2016 Problem resolved confirmed Bharat-[id number]- Problem Diabetes mellitus type 2 (disorder) (26557816) Type 2 diabetes (250.00) 2011 Active confirmed [id number]-[id number]- Problem Vertebral artery syndrome (04327788) Vertebral artery insufficiency (435.1) 2014 Problem resolved confirmed Bharat-[id number]- Problem Occlusion of right carotid artery (589163631690853) Occlusion of right carotid artery (I65.21) Active confirmed Problem Left carotid artery occlusion (551819034549913) Left carotid artery occlusion (I65.22) Active confirmed Plan Of Treatment No Information Insurance Providers Payer Name Payer Address Payer Phone Subscriber Number Group Number Insured Name Patient Relationship to Insured Coverage Start Date Coverage End Date [employer] Commercial - Out of Network [address] [address] [place] [address] [id number] Vidalsabrina brock Clovis Self - patient is the insured 7 Medical (General) History Medical History History ICD Code Hypertension Hypercholesterolemia Hx of Myocardial infarction LVH GERD Type 2 diabetes Peripheral neuropathy Osteoarthritis Hx of compression fractures; thoracic Osteopenia Macular degeneration BPH Testosterone deficiency Insomnia Electrocution, 1976 Surgical History Surgery Date(Month/Year) Appendectomy Cholecystectomy Arthroscopy; left knee Cataract removal Hernia repair
--- NOTE | 2024-11-25 06:33 | ECG_ITS ---
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 Measurements Intervals [place] Rate: 115 P: 0 [place]: 0 QRS: 0 QRSD: 94 T: 67 QT: 317 QTc: 440 Interpretive Statements SINUS TACHYCARDIA NONSPECIFIC T-WAVE ABNORMALITY ABNORMAL RHYTHM ECG Compared to ECG 07/21/2021 10:41:47 NO SIGNIFICANT CHANGE Electronically Signed On 11-25-2024 20:18:12 CDT by Gordon De La Cruz M.D. [id number]
--- NOTE | 2024-11-25 06:33 | CTR_ITS ---
PROCEDURE INFORMATION: Exam: CTA Head With Contrast, Arteriography Exam date and time: 11/25/2024 6:49 AM Age: 84 years old Clinical indication: Stroke-like symptoms; Vomiting; RT upper extremity and RT lower extremity weakness; Additional info: CVA TECHNIQUE: Imaging protocol: Computed tomographic angiography of the head with contrast. Exam focused on the arteries. 3D rendering (Not supervised by radiologist): MIP and/or 3D reconstructed images were created by the technologist. Radiation optimization: All CT scans at this facility use at least one of these dose optimization techniques: automated exposure control; mA and/or kV adjustment per patient size (includes targeted exams where dose is matched to clinical indication); or iterative reconstruction. Contrast material: OMNI 350; Contrast volume: 100 ml; Contrast route: INTRAVENOUS (IV); COMPARISON: CT head thrombolytic [id number] 11/25/2024 6:26 AM RADIATION DOSE METRICS: Total DLP (mGy-cm): 582.22 FINDINGS: ANTERIOR CIRCULATION: Right internal carotid artery: Intracranial segment is patent with no significant stenosis. No aneurysm. There is mild plaque noted. Right middle cerebral artery: No occlusion or significant stenosis. No aneurysm. Right anterior cerebral artery: No occlusion or significant stenosis. No aneurysm. Left internal carotid artery: Intracranial segment is patent with no significant stenosis. No aneurysm. There is mild plaque noted. Left middle cerebral artery: No occlusion or significant stenosis. No aneurysm. Left anterior cerebral artery: No occlusion or significant stenosis. No aneurysm. POSTERIOR CIRCULATION: Right vertebral artery: No occlusion or significant stenosis. No aneurysm. Left vertebral artery: No occlusion or significant stenosis. No aneurysm. Basilar artery: No occlusion or significant stenosis. No aneurysm. Right posterior cerebral artery: No occlusion or significant stenosis. No aneurysm. Left posterior cerebral artery: No occlusion or significant stenosis. No aneurysm. Brain: No definite mass, mass effect, or midline shift. Cerebral ventricles: No ventriculomegaly. Bones/joints: Unremarkable. No acute fracture. Soft tissues: Unremarkable. PROCEDURE INFORMATION: Exam: CTA Neck With Contrast Exam date and time: 11/25/2024 6:49 AM Age: 84 years old Clinical indication: Stroke-like symptoms; Vomiting; RT upper extremity and RT lower extremity weakness; Additional info: CVA TECHNIQUE: Imaging protocol: Computed tomographic angiography of the neck with contrast. Exam focused on the cervical segments of the vasculature. 3D rendering (Not supervised by radiologist): MIP and/or 3D reconstructed images were created by the technologist. Radiation optimization: All CT scans at this facility use at least one of these dose optimization techniques: automated exposure control; mA and/or kV adjustment per patient size (includes targeted exams where dose is matched to clinical indication); or iterative reconstruction. Contrast material: OMNI 350; Contrast volume: 100 ml; Contrast route: INTRAVENOUS (IV); COMPARISON: CT angio headneck* [id number] 03/03/2021 10:49 AM RADIATION DOSE METRICS: Total DLP (mGy-cm): 582.22 FINDINGS: Right common carotid artery: No stenosis. No dissection or occlusion. Right internal carotid artery: There is stenosis at the origin of the right internal carotid artery measuring between 60 and 70% secondary to heavy soft and calcified plaque. The remainder appears patent. Right external carotid artery: No occlusion or stenosis of the origin. Left common carotid artery: There is stenosis at the origin of the left common carotid artery measuring less than 50% secondary to heavy soft and calcified plaque. Left internal carotid artery: There is stenosis at the origin of the left internal carotid artery measuring up to 60% secondary to heavy soft and calcified plaque. The remainder appears patent. Left external carotid artery: No occlusion or stenosis of the origin. Right vertebral artery: There is mild stenosis at the origin of the right vertebral artery secondary to calcified plaque. The remainder appears patent. Left vertebral artery: There is mild to moderate stenosis at the origin of the left vertebral artery secondary to soft and calcified plaque. The remainder appears patent. Left subclavian artery: There is moderate focal stenosis of the left subclavian artery distal to the vertebral artery origin secondary to soft and calcified plaque. Soft tissues: Normal. No significant soft tissue swelling. Bones/joints: No acute fracture. CT/CT angio headne* [id number] IMPRESSION: No large vessel stenosis or occlusion. IMPRESSION: 1. Moderate bilateral internal carotid artery origin stenosis. 2. Bilateral vertebral artery origin stenosis left greater than right. 3. Moderate focal stenosis of the left subclavian artery. REFERENCES: NASCET CRITERIA. The degree of stenosis in the cervical segment of the internal carotid artery is based on NASCET criteria. Normal is no stenosis. Mild is less than 50% stenosis. Moderate is 50-69% stenosis. Severe is 70% to 99% stenosis. Total occlusion is no detectable patent lumen.
--- NOTE | 2024-11-25 06:33 | CTR_ITS ---
PROCEDURE INFORMATION: Exam: CT Head Without Contrast Exam date and time: 11/25/2024 6:26 AM Age: 84 years old Clinical indication: Stroke-like symptoms; Vomiting; RT upper extremity and RT lower extremity weakness; Additional info: Patient awoke with RT upper and lower ext weakness. One episode of emesis while being positioned on CT couch. TECHNIQUE: Imaging protocol: Computed tomography of the head without contrast. Radiation optimization: All CT scans at this facility use at least one of these dose optimization techniques: automated exposure control; mA and/or kV adjustment per patient size (includes targeted exams where dose is matched to clinical indication); or iterative reconstruction. Other technique: STROKE PROTOCOL was implemented. COMPARISON: CT angio headneck* [id number] 03/03/2021 10:49 AM RADIATION DOSE METRICS: Total DLP (mGy-cm): 890.88 FINDINGS: Brain: There is no evidence of acute intracranial hemorrhage, subacute or chronic ischemic infarct, acute intra-axial or extra-axial fluid collection, mass effect, or midline shift. Chronic microvascular ischemic changes in bilateral periventricular white matter. Cerebral ventricles: No ventriculomegaly. Paranasal sinuses: Partially visualized sinuses are unremarkable. No fluid levels. Mastoid air cells: Visualized mastoid air cells are well aerated. Orbital cavities: Previous bilateral cataract surgery. Bones: No acute calvarial fracture. A sean hole in the right frontal bone. Soft tissues: Unremarkable. Vasculature: Atherosclerotic calcifications in the intracranial segments of bilateral internal carotid arteries and bilateral vertebral arteries. CT/CT head thrombolytic [id number] IMPRESSION: 1. No acute intracranial findings. 2. Chronic microvascular ischemic changes in bilateral periventricular white matter. ASSESSMENT: ASPECTS ([place] Stroke Program Early CT Score) is 10.
--- NOTE | 2024-11-25 06:36 | W.ED.NEUROSD ---
HPI - Neuro Symptoms/Deficit General: Chief Complaint: Neuro Symptoms/Deficit Stated Complaint: weakness, possible stroke alert Time Seen by Provider: 11/25/24 06:27 Source: EMS Mode of arrival: EMS Limitations: altered mental status History of Present Illness: 84-year-old male who is here with a stroke alert. Per EMS his had seen him last normal last night at 5 PM states that he was not feeling well and went to bed at 5 PM she states she had heard him fall this morning found him with right sided weakness and altered mental status here patient is altered with dysarthria he has had vomiting as well. Related Data Home Medications ?Medication ?Instructions ?Recorded ?Confirmed aspirin 81 mg tablet,delayed 81 mg PO DAILY 06/10/21 10/31/23 release (Adult Low Dose Aspirin) coQ10 (ubiquinol) 100 mg capsule 100 mg PO DAILY 07/19/22 10/31/23 diphenhydramine HCl 50 mg capsule 50 mg PO BEDTIME PRN Insomnia 07/19/22 10/31/23 ([employer] Sleep[employer]els) Previous Rx's ?Medication ?Instructions ?Recorded lancets #400 ea 02/03/22 pantoprazole 40 mg tablet,delayed 40 mg PO BID Hiatal hernia & 05/27/22 release reflux #60 tabs tiotropium bromide 1.25 2 puff inhalation DAILY #4 grams 08/26/22 mcg/actuation mist for inhalation (Spiriva Respimat) pioglitazone 15 mg tablet (Actos) 15 mg PO DAILY diabetes #30 tabs 09/23/22 glipizide 5 mg tablet See Rx Instructions .Route 10/27/22 .COMPLEX #180 tabs metoprolol tartrate 50 mg tablet 50 mg PO BID blood pressure and 11/05/22 heart rate #180 tabs blood sugar diagnostic (True #100 strips 11/30/22 Metrix Glucose Test Strip) lisinopril 2.5 mg tablet 2.5 mg PO DAILY HTN/kidney #90 tabs 12/03/22 tamsulosin 0.4 mg capsule 0.4 mg PO DAILY prostate 12/30/22 medication #90 caps meloxicam 7.5 mg tablet 7.5 mg PO DAILY PRN arthritis/pain 07/08/23 #90 tabs simvastatin 40 mg tablet 40 mg PO DAILY dyslipidemia #90 08/02/23 tabs metformin 1,000 mg tablet See Rx Instructions .Route 08/10/23 .COMPLEX #180 tabs ondansetron 4 mg disintegrating 4 mg PO Q8H PRN nausea and 09/23/23 tablet vomiting #30 tabs ondansetron 4 mg disintegrating 4 mg PO Q8H PRN nausea and 09/23/23 tablet vomiting 90 days #60 tabs Allergies Allergy/AdvReac Type Severity Reaction Status Date / Time Penicillins Allergy ALGY-Rash Verified 10/31/23 09:42 Review of Systems General: Reports: ROS unobtainable due to mental status PFSH ED PFSH: Medical History (Updated 11/25/24 @ 09:08 by Antony Cook MD) Ureteral stone with hydronephrosis Nephrolithiasis x 4 with intervention x 3, 06/29/2023 left flank pain & 7 mm left mid ureteral sterile stone with mild obstruction of left kidney. Chronic nausea History of hiatal hernia History of peptic ulcer disease Hyperlipidemia associated with type 2 diabetes mellitus SOB (shortness of breath) Migraine equivalent syndrome Vitreous flashes of both eyes Carotid stenosis, left Osteoarthritis involving multiple joints on both sides of body BPH (benign prostatic hyperplasia) HTN (hypertension), benign DM type 2 (diabetes mellitus, type 2) History of chronic back pain GERD (gastroesophageal reflux disease) Surgical History History of esophagogastroduodenoscopy (EGD) 10 + yrs ago at [facility] History of appendectomy S/P hernia surgery History of cholecystectomy H/O cataract extraction H/O brain surgery Family History Sister Cancer Father Cancer Other CAD (coronary artery disease) Social History Smoking and tobacco/nicotine status: never used tobacco/nicotine Quit status (tobacco/nicotine): has quit using Year quit tobacco: 1969 Former quit date comment: Smoked x 22 year 1/2 pack per day Alcohol intake: current Alcohol intake frequency: holidays/special occasions only Substance/Drug Use: never Marital status: Current occupational status: employed and retired NIH stroke score NIHSS: Level Of Consciousness - 1a: 0 Level Of Consciousness Questions - 1b: One Correct Level Of Consciousness Commands - 1c: One Correct Best Gaze - 2: Normal Visual Carlos - 3: No Visual Loss Facial Palsy - 4: Normal Motor Arm Right - 5: Drift Motor Arm Left - 5: No Drift Motor Leg Right - 6: Drift Motor Leg Left - 6: No Drift Limb Ataxia - 7: Absent Sensory - 8: Normal Best Language - 9: Mild/Moderate Aphasia Dysarthia - 10: Mild/Moderate Dysarthia Extinction And Inattention - 11: 0 Score: Total Score: 6 Physical Exam Const: COMMON NORMALS: negative for patient oriented x3 HENMT: COMMON NORMALS: normocephalic and atraumatic HEAD & SCALP: normocephalic and atraumatic Eye: COMMON NORMALS: Equal, round and reactive pupils present and EOMs intact bilaterally PUPIL: Yes Equal, round and reactive pupils present Neck/C-Spine: COMMON NORMALS: full ROM and supple Chest: COMMONS NORMALS: normal inspection of the chest Resp: COMMON NORMALS: normal respiratory effort, No retractions, No use of accessory muscles and clear to auscultation bilaterally AUSCULTATION: clear to auscultation bilaterally Cardio: COMMON NORMALS: regular rate, regular rhythm and No murmurs present (Cardio) RATE: regular rate RHYTHM: regular rhythm GI: COMMON NORMALS: Normal to inspection, nondistended, normoactive bowel sounds present, Soft to palpation, non-tender and no masses PALPATION: Yes Soft to palpation Extremity: COMMON NORMALS: normal to inspection and full ROM Neuro: COMMON NORMALS: negative for patient oriented x3 OTHER: right sided weakness, aphasia Psych: COMMON NORMALS: cooperative Skin: COMMON NORMALS: no rashes or lesions noted and no wounds GENERAL SKIN EXAM: no rashes or lesions noted Course Vital Signs: Vital signs: Vital Signs Temperature 100.6 F H 11/25/24 06:31 Pulse Rate 112 H 11/25/24 08:54 Respiratory Rate 20 H 11/25/24 06:31 Blood Pressure 154/93 11/25/24 08:54 Pulse Oximetry 96 11/25/24 08:54 Oxygen Delivery Me thod Room Air 11/25/24 08:54 MDM - Neuro Symptoms/Deficit Medical Decision Making Patient presents here with altered mental status along with fever likely septic blood pressure here been stable did give him sepsis bolus of ideal body weight and start antibiotics spoke to hospitalist will admit this time. Medical Records I reviewed the patient's medical records. Lab Data I reviewed the patient's lab results. 11/25/24 06:41 11/25/24 06:[address] 11/25/24 06:33 IMPRESSION: 1. No acute intracranial findings. 2. Chronic microvascular ischemic changes in bilateral periventricular white matter. ASSESSMENT: ASPECTS ([place] Stroke Program Early CT Score) is 10. ADDENDUM: 11/25/24 0651 The patient's physician, ANTONY Cabral was informed by phone by Dr. Osborn about the findings and recommendations on 11/25/2024 at 6:49 AM CDT. The ordering physician verbalized understanding. Head/Neck CTA 11/25/24 06:33 IMPRESSION: No large vessel stenosis or occlusion. IMPRESSION: 1. Moderate bilateral internal carotid artery origin stenosis. 2. Bilateral vertebral artery origin stenosis left greater than right. 3. Moderate focal stenosis of the left subclavian artery. REFERENCES: NASCET CRITERIA. The degree of stenosis in the cervical segment of the internal carotid artery is based on NASCET criteria. Normal is no stenosis. Mild is less than 50% stenosis. Moderate is 50-69% stenosis. Severe is 70% to 99% stenosis. Total occlusion is no detectable patent lumen. ADDENDUM: 11/25/24 0741 THIS REPORT CONTAINS FINDINGS THAT MAY BE CRITICAL TO PATIENT CARE. The findings were verbally communicated via telephone conference with ANTONY COOK at 7:39 AM CDT on 11/25/2024. The findings were acknowledged and understood. Chest X-Ray 11/25/24 07:01 IMPRESSION: No acute findings. Laboratory Results WBC 17.05 10^3/uL (3.29-11.43) H 11/25/24 06:41 RBC 5.32 10^6/uL (3.85-5.65) 11/25/24 06:41 Hgb 16.40 g/dL (11.27-16.99) 11/25/24 06:41 Hct 49.3 % (37-53) 11/25/24 06:41 MCV 92.7 fl (82-101) 11/25/24 06:41 MCH 30.8 pg (27-33) 11/25/24 06:41 MCHC 33.3 g/dL (30-55) 11/25/24 06:41 RDW 12.5 % (12.1-15.1) 11/25/24 06:41 Plt Count 191 10^3/cmm (157-399) 11/25/24 06:41 MPV 9.7 fL (7.4-10.4) 11/25/24 06:41 Neut % (Auto) 80.0 % 11/25/24 06:41 Lymph % (Auto) 15.7 % 11/25/24 06:41 [place] % (Auto) 3.5 % 11/25/24 06:41 Eos % (Auto) 0.1 % 11/25/24 06:41 Baso % (Auto) 0.3 % 11/25/24 06:41 Neut # (Auto) 13.64 10^3/uL (1.8-7.7) H 11/25/24 06:41 Lymph # (Auto) 2.7 10^3/uL (0.8-4.8) 11/25/24 06:41 [place] # (Auto) 0.6 10^3/uL (0.2-0.9) 11/25/24 06:41 Eos # (Auto) 0.0 10^3/uL (0.0-0.8) 11/25/24 06:41 Baso # (Auto) 0.1 10^3/uL (0.0-0.1) 11/25/24 06:41 Nucleated RBC % (auto) 0 % 11/25/24 06:41 Nucleated RBCs # 0.0 /100WBC 11/25/24 06:41 PT 13.20 SECONDS (12.1-14.9) 11/25/24 06:41 INR 0.93 (0.8-1.2) 11/25/24 06:41 APTT 21.2 SECONDS (23.9-36.7) L 11/25/24 06:41 Sodium 134 mmol/L (136-145) L 11/25/24 06:41 Potassium 5.1 mmol/L (3.5-5.1) 11/25/24 06:41 Chloride 96 mmol/L (98-107) L 11/25/24 06:41 Carbon Dioxide 19 mmol/L (22-29) L 11/25/24 06:41 Anion Gap 24.1 (5-19) H 11/25/24 06:41 BUN 18 mg/dL (8-23) 11/25/24 06:41 Creatinine 1.1 mg/dL (0.7-1.2) 11/25/24 06:41 GFR Calculation Not Reportable 11/25/24 06:41 Glucose 297 mg/dL (65-115) H 11/25/24 06:41 Calculated Osmolality 291 mOsm/kg (285-295) 11/25/24 06:41 Lactic Acid 4.6 mmol/L (0.5-2.2) H* 11/25/24 06:41 Calcium 9.9 mg/dL (8.5-10.5) 11/25/24 06:41 Total Bilirubin 1.1 mg/dL (0.15-1.2) 11/25/24 06:41 AST 19 U/L (0-40) 11/25/24 06:41 ALT 23 U/L (0-41) 11/25/24 06:41 Alkaline Phosphatase 64 U/L (40-130) 11/25/24 06:41 Total Protein 7.9 g/dL (6.6-8.7) 11/25/24 06:41 Albumin 4.3 g/dL (3.5-5.2) 11/25/24 06:41 Globulin 3.6 g/dL (1.3-4.6) 11/25/24 06:41 Urine Color Yellow (Yellow) 11/25/24 07:18 Urine Appearance Clear (CLEAR) 11/25/24 07:18 Urine pH 6.5 (5-7) 11/25/24 07:18 Ur Specific [place] 1.045 (1.005-1.030) H 11/25/24 07:18 Urine Protein Negative (Negative) 11/25/24 07:18 Urine Glucose (UA) 2+ (Normal) H 11/25/24 07:18 Urine Ketones 1+ (Negative) H 11/25/24 07:18 Urine Blood Negative (Negative) 11/25/24 07:18 Urine Nitrate Negative (Negative) 11/25/24 07:18 Urine Bilirubin Negative (Negative) 11/25/24 07:18 Urine Urobilinogen 0.2 mg/dL (Negative) 11/25/24 07:18 Ur Leukocyte Esterase Negative (Negative) 11/25/24 07:18 Urine RBC 0-2 /hpf (0-2) 11/25/24 07:18 Urine WBC 0-5 /hpf (0-5) 11/25/24 07:18 Ur Squamous Epith Cells 0-5 /hpf (0-5) 11/25/24 07:18 Amorphous Sediment Not Reportable 11/25/24 07:18 Urine Bacteria None seen /hpf (NONE) 11/25/24 07:18 Hyaline Casts 0.40 /lpf 11/25/24 07:18 Urine Opiates Screen Negative ng/mL (Negative) 11/25/24 07:18 Ur Barbiturates Screen Negative ng/mL (Negative) 11/25/24 07:18 Ur Phencyclidine Scrn Negative ng/mL (Negative) 11/25/24 07:18 Ur Amphetamines Screen Negative ng/mL (Negative) 11/25/24 07:18 U Benzodiazepines Scrn Negative ng/mL (Negative) 11/25/24 07:18 Urine Cocaine Screen Negative ng/mL (Negative) 11/25/24 07:18 U Marijuana (THC) Screen Negative ng/mL (Negative) 11/25/24 07:18 All radiology interpretation(s) finalized by discharge EKG Data EKG 1: I personally reviewed and interpreted this EKG as follows: EKG interpretation date: 11/25/24 EKG interpretation time: 06:23 Interpretation: sinus tach hr [address] elevation qrs 94 qtc 385 Critical Care Time Critical Care Time: Critical Care Time: Yes Total Critical Care Time: 40 Attestation: The high probability of a clinically significant, sudden or life threatening deterioration of the patient'sneuro system(s) required my full and direct attention, intervention and personal management. The critical care time is as shown. This time is in addition to time spent performing any reported procedures but includes the following: [x] Data and vital sign review and interpretation [x] Patient assessment, examination and intervention [x] Documentation [x] Medication orders and management Discharge Plan Discharge Patient Disposition: Admitted As Inpatient Clinical Impression: Altered mental status, Sepsis Condition: Stable Coding Level of Care Code ED Director Financial Systems for Sebastien Albright
[2024-11-25 06:48] LABS: Hematocrit 49.3 % (37-53); Hemoglobin 16.40 g/dL (11.27-16.99); Mean Corpuscular HGB Conc 33.3 g/dL (30-55); Mean Corpuscular Hemoglobin 30.8 pg (27-33); Mean Corpuscular Volume 92.7 fl (82-101); Nucleated Red Blood Cells % 0 %; Platelet Count 191 10^3/cmm (157-399); Red Blood Count 5.32 10^6/uL (3.85-5.65); White Blood Count 17.05 10^3/uL (3.29-11.43)
[2024-11-25] MEDS: iohexol 350 mg/mL 500 mL Btl (per mL) IV ×2 (06:52→10:21)
[2024-11-25 06:57] LABS: INR 0.93 (0.8-1.2); Prothrombin Time 13.20 SECONDS (12.1-14.9)
[2024-11-25 06:58] LABS: Partial Thromboplastin Time 21.2 SECONDS (23.9-36.7)
--- NOTE | 2024-11-25 07:01 | XRR_ITS ---
PROCEDURE INFORMATION: Exam: XR Chest Exam date and time: 11/25/2024 7:41 AM Age: 84 years old Clinical indication: Fever TECHNIQUE: Imaging protocol: Radiologic exam of the chest. Views: 1 view. COMPARISON: CR XR ribs RT mn 3V w CXR1V [id number] 10/26/2021 2:14 PM FINDINGS: Lungs: Unremarkable. No consolidation. Pleural spaces: Unremarkable. No pleural effusion. No pneumothorax. Heart/Mediastinum: Unremarkable. No cardiomegaly. Bones/joints: Unremarkable. XR/XR chest 1V portable [id number] IMPRESSION: No acute findings.
[2024-11-25 07:06] LABS: Albumin Level 4.3 g/dL (3.5-5.2); Alkaline Phosphatase 64 U/L (40-130); Anion Gap 24.1 (5-19); Aspartate Amino Transferase 19 U/L (0-40); Blood Urea Nitrogen 18 mg/dL (8-23); Calcium 9.9 mg/dL (8.5-10.5); Carbon Dioxide 19 mmol/L (22-29); Chloride 96 mmol/L (98-107); Creatinine Clr Calc Pharmacy 59.2452; Globulin 3.6 g/dL (1.3-4.6); Glucose 297 mg/dL (65-115); Osmolality Calculated 291 mOsm/kg (285-295); Potassium 5.1 mmol/L (3.5-5.1); Sodium 134 mmol/L (136-145); Total Protein 7.9 g/dL (6.6-8.7)
[2024-11-25] MEDS: ondansetron 2 mg/ML SDV 2 mL 4 MG IVP ×2 (07:10→10:05)
[2024-11-25 07:16] LABS: Alanine Aminotransferase 23 U/L (0-41)
[2024-11-25 07:25] LABS: Lactic Sepsis W/Reflex 4.6 mmol/L (0.5-2.2)
[2024-11-25 07:48] LABS: Glucose Urine UA 2+ (Normal); Nitrate Urine Negative (Negative)
[2024-11-25] MEDS: cefTRIAXone 1,000 mg SDV 1000 MG IVP (07:49)
[2024-11-25 07:53] LABS: Add Urine Microscopic? YES
[2024-11-25 07:57] LABS: PCP Screen Urine Negative (Negative)
[2024-11-25 08:45] LABS: Specific Gravity, Urine 1.045 (1.005-1.030)
[2024-11-25 08:53] LABS: Reflex Lactate Order REFLEX LACTIC ORDERD
[2024-11-25 09:23] LABS: Respiratory Syncytial Virus Ce NEGATIVE (Negative); SARS-CoV-2 PCR NEGATIVE (Negative)
--- NOTE | 2024-11-25 09:59 | CTR_ITS ---
PROCEDURE INFORMATION: Exam: CT Abdomen And Pelvis With Contrast Exam date and time: 11/25/2024 10:26 AM Age: 84 years old Clinical indication: Vomiting; Prior surgery; Surgery date: 6+ months; Surgery type: Gb TECHNIQUE: Imaging protocol: Computed tomography of the abdomen and pelvis with contrast. Radiation optimization: All CT scans at this facility use at least one of these dose optimization techniques: automated exposure control; mA and/or kV adjustment per patient size (includes targeted exams where dose is matched to clinical indication); or iterative reconstruction. Contrast material: OMNI 350; Contrast volume: 100 ml; Contrast route: INTRAVENOUS (IV); COMPARISON: CT kidney stone [id number] 06/28/2023 4:56 AM RADIATION DOSE METRICS: Total DLP (mGy-cm): 899 FINDINGS: Liver: Normal. No mass. Gallbladder and biliary ducts: The patient is status post cholecystectomy with expected pneumobilia. Pancreas: There is partial atrophy of the pancreas again identified. Spleen: Normal. No splenomegaly. Adrenal glands: Normal. No mass. Kidneys and ureters: Normal. No hydronephrosis. Stomach and bowel: There is no bowel obstruction. There is diverticulosis without evidence of diverticulitis. Appendix: No evidence of appendicitis. Intraperitoneal space: Unremarkable. No free air. No significant fluid collection. Vasculature: There is heavy atherosclerotic disease. The infrarenal aorta measures up to 2.8 cm in diameter. Lymph nodes: Unremarkable. No enlarged lymph nodes. Urinary bladder: Unremarkable as visualized. Reproductive: Unremarkable as visualized. Bones/joints: Multiple chronic appearing compression deformities are again identified throughout the visualized spine. There is grade 1 spondylolisthesis at L5-S1 with bilateral L1 spondylolysis. Soft tissues: Unremarkable. CT/CT abdomen pelvis w con* [id number] IMPRESSION: 1. No evidence of acute process. 2. Diverticulosis. 3. Multiple chronic appearing spinal compression deformities again identified. Grade 1 spondylolisthesis at L5-S1 with bilateral L5 spondylolysis.
[2024-11-25 10:13] LABS: Lactic Acid level (Lactate) 4.0 mmol/L (0.5-2.2)
--- NOTE | 2024-11-25 11:54 | P.HP_ITS ---
Providers/Chief Complaint 2 Admitting Physician: Nuno Brasher DO Primary Care Provider: Roscoe Mcneal MD Chief Complaint: weakness, possible stroke alert History of Present Illness Clovis Jaquez is a 84 year old male who lives at home with his and usually ambulatory with a past medical history significant for type 2 diabetes mellitus for which she takes Lantus 30 units nightly and glipizide and metformin presents after being in his usual state of health up until yesterday afternoon with lethargy and weakness. Patient unable to give history for altered mental status. History is taken by the . She states that he was in his usual state of health until yesterday afternoon. They ate dinner around 4 PM and then he went to his recliner and fell asleep. She woke him up at 8 PM and he went to bed. She states that he required the use of the walker because of his weakness. He was able to get up a few times and overnight to urinate. However this morning at 05 30 he fell and hit his head and right elbow. She called 911. He did also vomit throughout the night. He definitely missed his insulin dose last night. She is unsure if he took his insulin the night before. She denies any sick contacts except they have taken care of a 2-year-old in daycare. But he is not ill. In the emergency room he remains altered. He has a elevated white blood cell count of 17.05 he has a lactic acidosis of 4.6. Workup is negative for signs of infection from urine and chest. Head CT was negative for intracranial process. The urine does show 2+ glucose and 1+ ketones. Patient will be admitted to the ICU for possible DKA despite 200 range blood sugar. He will be given empiric antibiotics. Review of Systems 2 General: Reports: ROS unobtainable due to medical condition and Other (As above, states he has been in her usual state of health.) Medications/Allergies Home Medications ?Medication ?Instructions ?Recorded ?Confirmed ?Last Taken ?Type aspirin 81 mg tablet,delayed 81 mg PO DAILY 06/10/21 0 11/25/24 11/24/24 History release (Adult Low Dose Aspirin) lancets #400 ea 02/03/22 11/25/24 Un known Rx pantoprazole 40 mg tablet,delayed 40 mg PO BID Hiatal hernia & 05/27/22 11/25/24 07/16/22 Rx release reflux #60 tabs coQ10 (ubiquinol) 100 mg capsule 100 mg PO DAILY 07/1911/25/24 11/24/24 History diphenhydramine HCl 50 mg capsule 50 mg PO BEDTIME PRN Insomnia 07/19/22 11/25/24 11/24/24 History ([employer] SleepGels) tiotropium bromide 1.25 2 puff inhalation DAILY #4 g sally 08/26/22 11/25/24 Unknown Rx mcg/actuation mist for inhalation (Spiriva Respimat) glipizide 5 mg tablet See Rx Instructions .Route 0 10/27/22 11/25/24 Unknown Rx .COMPLEX #180 tabs metoprolol tartrate 50 mg tablet 50 mg PO BID blood pr essure and 11/05/22 11/25/24 11/24/24 Rx heart rate #180 tabs blood sugar diagnostic (True #100 strips 11/30/2211/12 Unknown Rx Metrix Glucose Test Strip) lisinopril 2.5 mg tablet 2.5 mg PO DAILY HTN/kidney # 90 tabs 12/03/22 11/25/24 11/24/24 Rx tamsulosin 0.4 mg capsule 0.4 mg PO DAILY prostate 11/25/24 11/24/24 Rx medication #90 caps meloxicam 7.5 mg tablet 7.5 mg PO DAILY PRN arthriti s/pain 07/08/23 11/25/24 Unknown Rx #90 tabs simvastatin 40 mg tablet 40 mg PO DAILY dyslipidemia #90 08/02/23 11/25/24 11/24/24 Rx tabs metformin 1,000 mg tablet See Rx Instructions .Route 0 08/10/23 11/25/24 11/24/24 Rx .COMPLEX #180 tabs Allergies Allergy/AdvReac Type Severity Reaction Status Date / Time Penicillins Allergy ALGY-Rash Verified 10/31/23 09:42 PFSH Acute 2 PFSH: Medical History Ureteral stone with hydronephrosis Nephrolithiasis x 4 with intervention x 3, 06/29/2023 left flank pain & 7 mm left mid ureteral sterile stone with mild obstruction of left kidney. Chronic nausea History of hiatal hernia History of peptic ulcer disease Hyperlipidemia associated with type 2 diabetes mellitus SOB (shortness of breath) Migraine equivalent syndrome Vitreous flashes of both eyes Carotid stenosis, left Osteoarthritis involving multiple joints on both sides of body BPH (benign prostatic hyperplasia) HTN (hypertension), benign DM type 2 (diabetes mellitus, type 2) History of chronic back pain GERD (gastroesophageal reflux disease) Surgical History History of esophagogastroduodenoscopy (EGD) 10 + yrs ago at [facility] History of appendectomy S/P hernia surgery History of cholecystectomy H/O cataract extraction H/O brain surgery Family History Sister Cancer Father Cancer Other CAD (coronary artery disease) Social History Smoking and tobacco/nicotine status: never used tobacco/nicotine Quit status (tobacco/nicotine): has quit using Year quit tobacco: 1969 Former quit date comment: Smoked x 22 year 1/2 pack per day Alcohol intake: current Alcohol intake frequency: holidays/special occasions only Substance/Drug Use: never Marital status: Current occupational status: employed and retired Vitals/I&O/Wt Last Vital Signs Temp 100.6 F H 11/25/24 06:31 Pulse 110 H 11/25/24 11:48 Resp 20 H 11/25/24 06:31 BP 169/93 11/25/24 11:48 Pulse Ox 93 11/25/24 11:48 O2 Del Method Room Air 11/25/24 10:52 11/24/24 11/25/24 11/25/24 22:59 06:59 14:59 Intake Total 2250 / 2250 Balance 2250 / 2250 Weight last 48 hrs Weight 96.524 kg Physical Exam 2 Narrative: Patient is altered he is lethargic, he has limited words. He will try to speak and open his eyes Neuro nonfocal to exam HEENT head is normal cephalic there is bruising to his right forehead and right temporal area. This is status post fall. Pupils equal round reactive to light, extraocular muscles appear intact. Mucous membranes are dry. Neck is supple no JVD carotid bruits or lymphadenopathy Heart is regular normal S1-S2 no loud murmur Lungs clear to auscultation anteriorly Abdomen soft nontender nondistended normal active bowel sounds Extremities no clubbing cyanosis or edema. Right elbow with bleeding and currently wrapped. Skin: Pale no other lesions or rashes noted Back no kyphosis or scoliosis Data 11/25/24 06:41 11/25/24 06:41 Micro: Microbiology 11/25/24 07:35 Blood Culture - Preliminary Blood SPECIMEN COLLECTED 11/25/24 07:35 Blood Culture - Preliminary Blood SPECIMEN COLLECTED CT Head: Radiologist's impression: IMPRESSION: 1. No acute intracranial findings. 2. Chronic microvascular ischemic changes in bilateral periventricular white matter. Other Imaging: Radiologist's impression: CT/CT angio headneck* [id number] IMPRESSION: No large vessel stenosis or occlusion. CT Abd/Pel: Radiologist's impression: CT/CT abdomen pelvis w con* [id number] IMPRESSION: 1. No evidence of acute process. 2. Diverticulosis. 3. Multiple chronic appearing spinal compression deformities again identified. Grade 1 spondylolisthesis at L5-S1 with bilateral L5 spondylolysis. CXR: Radiologist's impression: IMPRESSION: No acute findings. EKG 1: My Interpretation: Appears to be normal sinus rhythm with PACs. Possible left ventricular hypertrophy on EKG EKG computer-generated impression: Interpretive Statements SUPRAVENTRICULAR TACHYCARDIA NONSPECIFIC T-WAVE ABNORMALITY ABNORMAL RHYTHM ECG A&P Assessment and plan 1. Sepsis: 2. Altered mental status: 3. DKA, type 2: 4. HTN (hypertension), benign: 5. DM type 2 (diabetes mellitus, type 2): 6. History of chronic back pain: 7. Hyperlipidemia associated with type 2 diabetes mellitus: 8. Chronic nausea: 9. GERD (gastroesophageal reflux disease): 10. BPH (benign prostatic hyperplasia): Plan: Altered mental status: Unknown etiology Workup in ER is negative for infection. Will treat empirically with meropenem and vancomycin Possible DKA will treat as such with insulin drip and follow protocol Patient with chronic back pain I do not see any opioids but this will be considered and I will discuss further with . CT and CTA head and neck are negative for acute abnormality. Await blood cultures Patient placed in ICU for DKA protocol with insulin drip and close monitoring. Empiric antibiotics for possible sepsis. Monitor expectantly for underlying etiology of patient's condition PDMP PDMP Reviewed: Not Reviewed Attestations 2 Medical Necessity Statement*: Patient requires hospitalization with expected 2 midnight stay due to altered mental status of unknown etiology. Coding Level of Care Code Acute Code for g Fwd Diagnoses Sepsis A41.9 Altered mental status R41.82 DKA, type 2 E11.10 HTN (hypertension), benign I10 DM type 2 (diabetes mellitus, type 2) E11.9 History of chronic back pain Z87.39 Hyperlipidemia associated with type 2 diabetes mellitus E11.69; E78.5 Chronic nausea R11.0 GERD (gastroesophageal reflux disease) K21.9 BPH (benign prostatic hyperplasia) N40.0
--- NOTE | 2024-11-25 12:32 | PHA.VACGOAL ---
Vancomycin Goal - Goal Vancomycin Goal:: 15-20 mg/L Vancomycin Indication:: Other (SEPSIS) - Therapy Current therapy:: Meropenem Day of therpy:: Day []of [] . Actual body weight (kg): 202 lb 13.204 oz - Data Labs: WBC 17.05 10^3/uL (3.29-11.43) H 11/25/24 06:41 RBC 5.32 10^6/uL (3.85-5.65) 11/25/24 06:41 Hgb 16.40 g/dL (11.27-16.99) 11/25/24 06:41 Hct 49.3 % (37-53) 11/25/24 06:41 MCV 92.7 fl (82-101) 11/25/24 06:41 MCH 30.8 pg (27-33) 11/25/24 06:41 MCHC 33.3 g/dL (30-55) 11/25/24 06:41 RDW 12.5 % (12.1-15.1) 11/25/24 06:41 Sodium 134 mmol/L (136-145) L 11/25/24 06:41 Potassium 5.1 mmol/L (3.5-5.1) 11/25/24 06:41 Chloride 96 mmol/L (98-107) L 11/25/24 06:41 Carbon Dioxide 19 mmol/L (22-29) L 11/25/24 06:41 Anion Gap 24.1 (5-19) H 11/25/24 06:41 BUN 18 mg/dL (8-23) 11/25/24 06:41 Creatinine 1.1 mg/dL (0.7-1.2) 11/25/24 06:41 GFR Calculation Not Reportable 11/25/24 06:41 Last dialysis session:: N/A Treatment plan:: new consult Regimen:: STARTING 2000 MG LOADING DOSE. 12 HOURS FOLLOWING, WILL PLAN TO START MAINTENANCE DOSE OF 750 MG PER PROTOCOL. Rationale:: PATIENT IS OF ADVANCED AGE AND UNKNOWN FLUID STATUS. ORIGIN OF PATIENT'S SEPSIS IS UNKNOWN AT THIS POINT. WILL DRAW RANDOM LEVEL PRIOR TO STEADY STATE TO ENSURE DOSE IS NOT SUPRATHERAPEUTIC. IF RANDOM LEVEL IS WITHIN RANGE, MAY CONTINUE DOSING. IF RANDOM LEVEL IS ABOVE RANGE, CONSIDER REEVALUATING MAINTENANCE DOSE. WILL DRAW TROUGH PRIOR TO 5TH DOSE AND CONTINUE TO MONITOR DAILY.
[2024-11-25] MEDS: INSULIN REGULAR IN 0.9 % NACL 100 UNIT/100 ML BAG 9 UNIT IV (12:53)
[2024-11-25] MEDS: meropenem 1,000 mg SDV 1000 MG IVP ×2 (13:02→20:24)
[2024-11-25 13:03] LABS: ABG PCO2 29.9 mmHg (35-45); ABG PH Result 7.37 (7.35-7.45); Arterial Blood Gas Hematocrit 47.2 % (42-52); Blood Gas Allen Test Pos; Blood Gas Operator Identificat CAK; Blood Gas Sample Site Radial, left; Blood Gas Sample Type Arterial; HCO3 ABG 17.1 mmol/L (22-26); PO2 ABG 66.8 mmHg (80.0-100.0); PO2 FiO2 Ratio Arterial Blood 318
[2024-11-25] MEDS: water for injection-sterile 10 ML 10000 ML (13:11)
[2024-11-25] MEDS: dextrose 5%-sod chloride 0.45% 1,000 ML 75 ML IV (13:59)
--- NOTE | 2024-11-25 16:09 | PC.NURSE ---
continue on insulin gtt verified with doctor about lab will check at 1700 and go from there, remains restless and confused but will now respond to question single response ciara gupta amts of urine out noted linen change done several time and yoli care done
[2024-11-25 17:57] LABS: Anion Gap 20.8 (5-19); Blood Urea Nitrogen 16 mg/dL (8-23); Calcium 8.5 mg/dL (8.5-10.5); Carbon Dioxide 17 mmol/L (22-29); Chloride 98 mmol/L (98-107); Creatinine Clr Calc Pharmacy 70.8469; Glucose 154 mg/dL (65-115); Osmolality Calculated 278 mOsm/kg (285-295); Potassium 3.8 mmol/L (3.5-5.1); Sodium 132 mmol/L (136-145)
[2024-11-25 21:11] LABS: ABG PCO2 31.6 mmHg (35-45); ABG PH Result 7.42 (7.35-7.45); Alveolar-Arterial Oxygen Gradi 6.4 mmHg (5-10); Arterial Blood Gas Hematocrit 43.1 % (42-52); Blood Gas Allen Test Pos; Blood Gas Sample Site Radial, right; Blood Gas Sample Type Arterial; Carboxyhemoglobin 1.4 %THgb (0.4-20.1); Glucose Level-ABG 208.0 mg/dL (70-115); HCO3 ABG 20.5 mmol/L (22-26); Ionized Calcium Level - ABG 1.2 mmol/L (1.1-1.4); Methemoglobin 0.0 % (0.4-1.5); Oxygen Saturation ABG 93.6; PO2 ABG 60.8 mmHg (80.0-100.0); Potassium Level - ABG 3.8 mmol/L (3.5-5.0); Sodium Level - ABG 132.0 mmol/L (131-143)
[2024-11-25 21:12] LABS: Blood Gas Operator Identificat SAM
[2024-11-25 21:55] LABS: Anion Gap 16.8 (5-19); Blood Urea Nitrogen 16 mg/dL (8-23); Calcium 8.1 mg/dL (8.5-10.5); Carbon Dioxide 19 mmol/L (22-29); Chloride 99 mmol/L (98-107); Creatinine Clr Calc Pharmacy 70.8469; Glucose 206 mg/dL (65-115); Magnesium 1.4 mg/dL (1.7-2.3); Osmolality Calculated 279 mOsm/kg (285-295); Potassium 3.8 mmol/L (3.5-5.1); Sodium 131 mmol/L (136-145)
[2024-11-26] VITALS (19 sets, daily range): BP systolic 106–152; BP diastolic 47–88; PULSE 67–91; RESP 16–30; TEMP 36.6–37.1; O2SAT 91–97
[2024-11-26 01:20] LABS: Anion Gap 10.1 (5-19); Blood Urea Nitrogen 12 mg/dL (8-23); Calcium 6.3 mg/dL (8.5-10.5); Carbon Dioxide 19 mmol/L (22-29); Chloride 109 mmol/L (98-107); Glucose 200 mg/dL (65-115); Magnesium 1.1 mg/dL (1.7-2.3); Osmolality Calculated 285 mOsm/kg (285-295); Potassium 3.1 mmol/L (3.5-5.1); Sodium 135 mmol/L (136-145)
[2024-11-26 01:42] LABS: Creatinine Clr Calc Pharmacy 79.7028
[2024-11-26] MEDS: lidocaine 1% 5 ML in potassium chloride premix 100 ML 26.25 ML IV (02:51)
[2024-11-26] MEDS: magnesium sulfate premix 2 GM/50 ML PIGGYBACK IV (02:54)
--- NOTE | 2024-11-26 04:00 | XRR_ITS ---
PROCEDURE INFORMATION: Exam: XR Chest Exam date and time: 11/26/2024 05:40 AM Age: 84 years old Clinical indication: Shortness of breath; Additional info: AMS, assess for pna TECHNIQUE: Imaging protocol: Radiologic exam of the chest. Views: 1 view. COMPARISON: CR (CHEST, ) 11/25/2024 07:41 AM FINDINGS: Lungs: Low lung volumes with central bronchovascular crowding. No airspace consolidation. Pleural spaces: Unremarkable. No pleural effusion. No pneumothorax. Heart/Mediastinum: Cardiac size and configuration is stable when patient rotation is taken into account. Vasculature: Atherosclerotic vascular disease. Diaphragm: Asymmetric elevation of the right hemidiaphragm. Bones/joints: Osteopenia. Other findings: Patient rotation to the right. XR/XR chest 1V portable [id number] IMPRESSION: 1. Low lung volumes with patchy parahilar atelectasis and central bronchovascular crowding. 2. Atherosclerotic vascular disease.
--- NOTE | 2024-11-26 04:00 | PC.NURSE ---
RN contacted Dr. muro regarding patient labs and status. Anion gap closed and pH improved. Patient neurological status reported and concerns about patients ability to eat. Per MD leave insulin drip running with dextrose fluids
[2024-11-26] MEDS: dextrose 5%-sod chloride 0.45% 1,000 ML 75 ML IV (04:09)
[2024-11-26] MEDS: meropenem 1,000 mg SDV 1000 MG IVP ×3 (04:09→21:38)
[2024-11-26 05:08] LABS: Anion Gap 14.1 (5-19); Blood Urea Nitrogen 14 mg/dL (8-23); Calcium 8.2 mg/dL (8.5-10.5); Carbon Dioxide 22 mmol/L (22-29); Chloride 103 mmol/L (98-107); Creatinine Clr Calc Pharmacy 79.7028; Glucose 192 mg/dL (65-115); Lactic Sepsis W/Reflex 1.3 mmol/L (0.5-2.2); Magnesium 2.2 mg/dL (1.7-2.3); Osmolality Calculated 286 mOsm/kg (285-295); Potassium 4.1 mmol/L (3.5-5.1); Sodium 135 mmol/L (136-145)
--- NOTE | 2024-11-26 09:12 | PM.PN ---
Subjective Subjective: Anion gap is closed. Patient is awake, alert and oriented this morning, however slow to respond in conversation. He has no focal deficits on exam. Medications: Reviewed: Yes Vitals/I&O/Wt Last Vital Signs Temp 98.5 F 11/26/24 08:00 Pulse 75 11/26/24 08:00 Resp 21 H 11/26/24 08:00 BP 117/54 11/26/24 08:00 Pulse Ox 95 11/26/24 08:00 O2 Del Method Room Air 11/26/24 08:00 11/25/24 11/26/24 11/26/24 22:59 06:59 14:59 Intake Total 433.417 / 3287.517 1250.033 / 4537.550 155 / 155 Output Total 1250 / 1250 400 / 1650 Balance -816.583 / 2037.517 850.033 / 2887.550 155 / 155 Weight last 48 hrs Weight 94.1 kg Weight 92 kg Weight 96.524 kg Physical Exam Narrative: General: No acute distress, AO x3 HEENT: PERRLA, pupils bilaterally equal and reactive, pallors not present Chest: Normal vesicular breath sounds, no added sounds, equal good air entry bilaterally CVS: S1-S2 regular, no murmurs, no tachycardia, no gallops, no rubs Abdomen: Soft, nontender, no organomegaly, bowel sounds present Neuro: No focal deficits, no facial deformity, AO x3, power 5/5 in all limbs Extremities: no edema clubbing or cyanosis Urinary Catheter Management: Raines: Cath Placed During This Visit: yes Reason for Continuing Indwelling Catheter: Accurate Measurement of Urinary Output in Critically Ill Patients Urinary Catheter Date of Insertion: 11/25/24 Urinary Catheter Time of Insertion: 15:00 Data 11/26/24 04:34 11/26/24 04:34 Micro: Microbiology 11/25/24 07:35 Blood Culture - Preliminary Blood NEGATIVE TO DATE 11/25/24 07:35 Blood Culture - Preliminary Blood NEGATIVE TO DATE A&P Assessment and plan 1. Sepsis: 2. Altered mental status: 3. DKA, type 2: 4. HTN (hypertension), benign: 5. Type 2 diabetes mellitus without complication, without long-term current use of insulin: 6. History of chronic back pain: 7. Hyperlipidemia associated with type 2 diabetes mellitus: 8. Chronic nausea: 9. Gastroesophageal reflux disease without esophagitis: 10. BPH (benign prostatic hyperplasia): Plan: Altered mental status: Unknown etiology Workup in ER is negative for infection. Will treat empirically with meropenem and vancomycin Possible DKA will treat as such with insulin drip and follow protocol Patient with chronic back pain I do not see any opioids but this will be considered and I will discuss further with . CT and CTA head and neck are negative for acute abnormality. Await blood cultures Patient placed in ICU for DKA protocol with insulin drip and close monitoring. Empiric antibiotics for possible sepsis. Monitor expectantly for underlying etiology of patient's condition November 26, 2024 Chart reviewed. Patient admitted to the hospital Yesterday after presenting to the ER with with altered mental status, multiple episodes of vomiting. He was diagnosed with euglycemic DKA, leukocytosis and elevated lactic acid. CT head was negative for acute intracranial process. CT of the abdomen and pelvis showed chronic appearing spinal compression deformities but no other intra-abdominal process. anion gap is now closed. Chest x-ray did not show any acute findings. Urinalysis unremarkable for UTI. ABG did not show any signs of hypercapnia. Patient had a Tmax of 100.6 Fahrenheit in the last 24 hours. He is currently on broad-spectrum antibiotic treatment with meropenem and vancomycin. Influenza RSV and COVID PCR were negative. Blood culture is currently pending. He denies any diarrhea. Patient's mental status today appears to be much better. He is awake alert, able to hold a conversation though is somewhat slow to respond. He has no focal deficits on exam. NIH stroke scale of 0. He reports that he has been vomiting for over a month. Vomiting tends to occur only in the morning hours, shortly after waking up. He usually does not eat breakfast. Describes a history of acid reflux and possibly also of stomach ulcer he has not lost any weight. No history of melena or hematemesis. Hemoglobin is currently stable at 12.9. Review of chart shows patient takes meloxicam 7.5 mg frequently. Patient's white blood cell count still continues to be at 16.4 predominant neutrophilia. Anion gap is resolved today. Suspect this was related to dehydration likely from GI losses. Discontinue insulin drip. Transition to sliding scale and Lantus insulin. Start dysphagia 4 diet and if able to tolerate to be advanced. Patient's altered mental status most likely related to metabolic encephalopathy. Cause of vomiting not entirely clear, perhaps may be related to severe GERD versus viral gastroenteritis. Transfer out of ICU PDMP PDMP Reviewed: Not Reviewed Attestations Medical Necessity Statement*: Ongoing evaluation for infectious source given persisting leukocytosis. Discontinue insulin drip and transition to sliding scale and will Lantus. 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
[2024-11-26] MEDS: insulin glargine 100 units/1 mL 20 UNIT SUBCUT (09:57)
[2024-11-26 10:47] LABS: Hematocrit 37.7 % (37-53); Hemoglobin 12.90 g/dL (11.27-16.99); Mean Corpuscular HGB Conc 34.2 g/dL (30-55); Mean Corpuscular Hemoglobin 31.4 pg (27-33); Mean Corpuscular Volume 91.7 fl (82-101); Nucleated Red Blood Cells % 0 %; Platelet Count 158 10^3/cmm (157-399); Red Blood Count 4.11 10^6/uL (3.85-5.65); White Blood Count 16.42 10^3/uL (3.29-11.43)
[2024-11-26] MEDS: pantoprazole 40 mg SDV IVP (15:42)
--- NOTE | 2024-11-26 17:52 | PC.NURSE ---
Report called to med surg. Notified patients keagan that patient will be moved to room 264.
--- NOTE | 2024-11-26 18:23 | PC.NURSE ---
Transferred patient to room 264 via bed.
[2024-11-27] VITALS (14 sets, daily range): BP systolic 97–161; BP diastolic 56–81; PULSE 63–84; RESP 15–18; TEMP 36.4–37.2; O2SAT 91–95
[2024-11-27] MEDS: ondansetron 2 mg/ML SDV 2 mL 4 MG IVP (00:38)
[2024-11-27] MEDS: meropenem 1,000 mg SDV 1000 MG IVP ×3 (04:54→20:52)
[2024-11-27] MEDS: pantoprazole 40 mg SDV IVP ×2 (04:54→16:24)
[2024-11-27 05:12] LABS: Hematocrit 40.5 % (37-53); Hemoglobin 13.80 g/dL (11.27-16.99); Mean Corpuscular HGB Conc 34.1 g/dL (30-55); Mean Corpuscular Hemoglobin 30.9 pg (27-33); Mean Corpuscular Volume 90.6 fl (82-101); Nucleated Red Blood Cells % 0 %; Platelet Count 150 10^3/cmm (157-399); Red Blood Count 4.47 10^6/uL (3.85-5.65); White Blood Count 10.93 10^3/uL (3.29-11.43)
[2024-11-27 05:32] LABS: Alanine Aminotransferase 18 U/L (0-41); Albumin Level 3.5 g/dL (3.5-5.2); Alkaline Phosphatase 51 U/L (40-130); Anion Gap 13.0 (5-19); Aspartate Amino Transferase 19 U/L (0-40); Blood Urea Nitrogen 8 mg/dL (8-23); Calcium 8.6 mg/dL (8.5-10.5); Carbon Dioxide 24 mmol/L (22-29); Chloride 106 mmol/L (98-107); Creatinine Clr Calc Pharmacy 80.5194; Globulin 2.5 g/dL (1.3-4.6); Glucose 192 mg/dL (65-115); Osmolality Calculated 292 mOsm/kg (285-295); Potassium 4.0 mmol/L (3.5-5.1); Sodium 139 mmol/L (136-145); Total Protein 6.0 g/dL (6.6-8.7)
[2024-11-27] MEDS: insulin glargine 100 units/1 mL 20 UNIT SUBCUT (09:00)
[2024-11-27] MEDS: ATORVASTATIN 10 MG TABLET 20 MG PO (09:44)
--- NOTE | 2024-11-27 16:06 | PM.PN ---
Subjective Subjective: Patient now remains afebrile. WBC count has trended down to 10,000. States he feels much better today Medications: Reviewed: Yes Vitals/I&O/Wt Last Vital Signs Temp 98.0 F 11/27/24 15:38 Pulse 63 11/27/24 15:38 Resp 16 11/27/24 15:38 BP 107/60 11/27/24 15:38 Pulse Ox 95 11/27/24 15:38 O2 Del Method Room Air 11/27/24 15:38 11/27/24 11/27/24 11/27/24 06:59 14:59 22:59 Intake Total 700 / 2661.2 240 / 240 Output Total 1600 / 4200 600 / 600 Balance -900 / -1538.8 240 / 240 -600 / -360 Weight last 48 hrs Weight 88.11 kg Weight 94.1 kg Physical Exam Narrative: General: No acute distress, AO x3 HEENT: PERRLA, pupils bilaterally equal and reactive, pallors not present Chest: Normal vesicular breath sounds, no added sounds, equal good air entry bilaterally CVS: S1-S2 regular, no murmurs, no tachycardia, no gallops, no rubs Abdomen: Soft, nontender, no organomegaly, bowel sounds present Neuro: No focal deficits, no facial deformity, AO x3, power 5/5 in all limbs Urinary Catheter Management: Raines: Cath Placed During This Visit: yes Reason for Continuing Indwelling Catheter: Acute Urinary Retention or Obstruction Urinary Catheter Date of Insertion: 11/25/24 Urinary Catheter Time of Insertion: 15:00 Data 11/27/24 04:45 11/27/24 04:45 A&P Assessment and plan 1. Sepsis: 2. Altered mental status: 3. DKA, type 2: 4. HTN (hypertension), benign: 5. Type 2 diabetes mellitus without complication, without long-term current use of insulin: 6. History of chronic back pain: 7. Hyperlipidemia associated with type 2 diabetes mellitus: 8. Chronic nausea: 9. Gastroesophageal reflux disease without esophagitis: 10. BPH (benign prostatic hyperplasia): Plan: Altered mental status: Unknown etiology Workup in ER is negative for infection. Will treat empirically with meropenem and vancomycin Possible DKA will treat as such with insulin drip and follow protocol Patient with chronic back pain I do not see any opioids but this will be considered and I will discuss further with . CT and CTA head and neck are negative for acute abnormality. Await blood cultures Patient placed in ICU for DKA protocol with insulin drip and close monitoring. Empiric antibiotics for possible sepsis. Monitor expectantly for underlying etiology of patient's condition November 26, 2024 Chart reviewed. Patient admitted to the hospital Yesterday after presenting to the ER with with altered mental status, multiple episodes of vomiting. He was diagnosed with euglycemic DKA, leukocytosis and elevated lactic acid. CT head was negative for acute intracranial process. CT of the abdomen and pelvis showed chronic appearing spinal compression deformities but no other intra-abdominal process. anion gap is now closed. Chest x-ray did not show any acute findings. Urinalysis unremarkable for UTI. ABG did not show any signs of hypercapnia. Patient had a Tmax of 100.6 Fahrenheit in the last 24 hours. He is currently on broad-spectrum antibiotic treatment with meropenem and vancomycin. Influenza RSV and COVID PCR were negative. Blood culture is currently pending. He denies any diarrhea. Patient's mental status today appears to be much better. He is awake alert, able to hold a conversation though is somewhat slow to respond. He has no focal deficits on exam. NIH stroke scale of 0. He reports that he has been vomiting for over a month. Vomiting tends to occur only in the morning hours, shortly after waking up. He usually does not eat breakfast. Describes a history of acid reflux and possibly also of stomach ulcer he has not lost any weight. No history of melena or hematemesis. Hemoglobin is currently stable at 12.9. Review of chart shows patient takes meloxicam 7.5 mg frequently. Patient's white blood cell count still continues to be at 16.4 predominant neutrophilia. Anion gap is resolved today. Suspect this was related to dehydration likely from GI losses. Discontinue insulin drip. Transition to sliding scale and Lantus insulin. Start dysphagia 4 diet and if able to tolerate to be advanced. Patient's altered mental status most likely related to metabolic encephalopathy. Cause of vomiting not entirely clear, perhaps may be related to severe GERD versus viral gastroenteritis. Transfer out of ICU November 27, 2024 Patient continues to feel better. He is awake alert and oriented x 3. Altered mental status is now resolved. He is no longer febrile. White blood cell count has trended down to 10,000. Thus far all infectious evaluation remains nonrevealing. Blood culture is negative. He has not had any bowel movements. No nausea vomiting or diarrhea today. Overall clinical impression that of metabolic encephalopathy likely triggered by dehydration from GI losses, euglycemic DKA, vs perhaps viral gastroenteritis. Remove Raines catheter PDMP PDMP Reviewed: Not Reviewed Attestations Medical Necessity Statement*: Continue antibiotics today. If all blood cultures remain negative by tomorrow, anticipate discharge in the next 24 hours. 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
[2024-11-28] VITALS (9 sets, daily range): BP systolic 131–154; BP diastolic 71–84; PULSE 62–73; RESP 16–18; TEMP 36.7–37; O2SAT 93–95
[2024-11-28] MEDS: meropenem 1,000 mg SDV 1000 MG IVP (04:46)
[2024-11-28] MEDS: pantoprazole 40 mg SDV IVP (04:46)
[2024-11-28 05:14] LABS: Hematocrit 40.8 % (37-53); Hemoglobin 13.80 g/dL (11.27-16.99); Mean Corpuscular HGB Conc 33.8 g/dL (30-55); Mean Corpuscular Hemoglobin 30.9 pg (27-33); Mean Corpuscular Volume 91.5 fl (82-101); Nucleated Red Blood Cells % 0 %; Platelet Count 159 10^3/cmm (157-399); Red Blood Count 4.46 10^6/uL (3.85-5.65); White Blood Count 9.61 10^3/uL (3.29-11.43)
[2024-11-28 05:43] LABS: Alanine Aminotransferase 22 U/L (0-41); Albumin Level 3.2 g/dL (3.5-5.2); Alkaline Phosphatase 44 U/L (40-130); Anion Gap 14.8 (5-19); Aspartate Amino Transferase 19 U/L (0-40); Blood Urea Nitrogen 13 mg/dL (8-23); Calcium 8.7 mg/dL (8.5-10.5); Carbon Dioxide 21 mmol/L (22-29); Chloride 108 mmol/L (98-107); Creatinine Clr Calc Pharmacy 78.1900; Globulin 2.6 g/dL (1.3-4.6); Glucose 199 mg/dL (65-115); Osmolality Calculated 296 mOsm/kg (285-295); Potassium 3.8 mmol/L (3.5-5.1); Sodium 140 mmol/L (136-145); Total Protein 5.8 g/dL (6.6-8.7)
[2024-11-28] MEDS: ATORVASTATIN 10 MG TABLET 20 MG PO (08:42)
[2024-11-28] MEDS: insulin glargine 100 units/1 mL 20 UNIT SUBCUT (08:44)
[2024-11-28 09:45] LABS: Hematocrit 41.0 % (37-53); Hemoglobin 13.90 g/dL (11.27-16.99); Mean Corpuscular HGB Conc 33.9 g/dL (30-55); Mean Corpuscular Hemoglobin 31.0 pg (27-33); Mean Corpuscular Volume 91.5 fl (82-101); Nucleated Red Blood Cells % 0 %; Platelet Count 147 10^3/cmm (157-399); Red Blood Count 4.48 10^6/uL (3.85-5.65); White Blood Count 9.41 10^3/uL (3.29-11.43)
--- NOTE | 2024-11-28 11:35 | PC.SOCIAL ---
IMM Updated Updated pt on IMM. No questions voiced. Provided pt a copy. Initialed, dated, & timed a copy & placed in chart.
--- NOTE | 2024-11-28 12:18 | PC.OT ---
Pt. being discharged later today. Pt. did not want to participate in therapy session. Will attempt at later time.
--- NOTE | 2024-11-28 12:46 | PC.NURSE ---
Discussed discharge with patient and spouse. Went over follow up appointments, Home Health number, new medications and continued medications. Encouraged patient to take blood sugar and keep track of the numbers. Both patient and spouse verbalized understand.
--- NOTE | 2024-11-29 14:50 | PM.DCS ---
Discharge Providers Date of Admission: 11/25/24 09:06 Date of Discharge: November 29, 2024 Attending Provider at Admission: Nuno Brasher DO Attending Provider at Discharge: Mayela Arreaga MD Primary Care Provider: Roscoe Mcneal MD Diagnoses at Discharge Discharge Diagnosis 1. Sepsis: 2. Altered mental status: 3. DKA, type 2: 4. HTN (hypertension), benign: 5. Type 2 diabetes mellitus without complication, without long-term current use of insulin: 6. History of chronic back pain: 7. Hyperlipidemia associated with type 2 diabetes mellitus: 8. Chronic nausea: 9. Gastroesophageal reflux disease without esophagitis: 10. BPH (benign prostatic hyperplasia): Reason for Visit Reason for Visit: weakness, possible stroke alert Hospital Course Hospital Course Patient admitted to the hospital on 11/25/2024 after presenting to the ER with with altered mental status, multiple episodes of vomiting. He was diagnosed with euglycemic DKA, leukocytosis and elevated lactic acid. CT head was negative for acute intracranial process. CT of the abdomen and pelvis showed chronic appearing spinal compression deformities but no other intra-abdominal process. He was started on treatment with insulin drip thereafter transition to subcu insulin once anion gap closed. He had a fever upon presentation along with leukocytosis. Extensive source evaluation was undertaken. Chest x-ray did not show any acute findings. Urinalysis unremarkable for UTI. Influenza RSV and COVID PCR were negative. Blood culture was negative. Patient did not have any diarrhea. He received an empiric course of meropenem and vancomycin during the admission stay. With the above interventions, patient's mental status returned back to normal. No obvious source of infection was apparent on extensive evaluation. He is now awake alert and oriented. He has a history of recurrent episodes of vomiting over the past month. Chart review shows he has been evaluated in the past with endoscopic evaluation which was unrevealing at the time. He has been ordered for a gastric emptying study as an outpatient due to suspicion of diabetic gastroparesis which may potentially be the cause of his symptoms. He has been discharged with Protonix 40 mg twice daily. He is being discharged today in his baseline state of health. Suspect that his symptoms may have been related to acute viral gastroenteritis Physical Exam Narrative: General: No acute distress, AO x3 HEENT: PERRLA, pupils bilaterally equal and reactive, pallors not present Chest: Normal vesicular breath sounds, no added sounds, equal good air entry bilaterally CVS: S1-S2 regular, no murmurs, no tachycardia, no gallops, no rubs Abdomen: Soft, nontender, no organomegaly, bowel sounds present Neuro: No focal deficits, no facial deformity, AO x3, power 5/5 in all limbs Urinary Catheter Management: Raines: Cath Placed During This Visit: yes Reason for Continuing Indwelling Catheter: Acute Urinary Retention or Obstruction Urinary Catheter Date of Insertion: 11/25/24 Urinary Catheter Time of Insertion: 15:00 Discharge Data Studies Completed and Pending Completed Studies During Hospitalization Category Date Time Status CT abdomen pelvis w con* [id number] Stat Cat Scan 11/25/24 09:[address] head thrombolytic [id number] Stat Cat Scan 11/25/24 06:33 Completed CTA head neck [CT angio headneck* [id number]] Stat Cat Scan 11/25/24 06:33 Completed XR chest 1V portable [id number] Routine Exams 11/26/24 04:00 Completed XR chest 1V portable [id number] Stat Exams 11/25/24 07:01 Completed Pending at discharge Category Date Time Status Blood Culture Stat Lab 11/25/24 07:35 Results Radiology Impressions Head CT 11/25/24 06:33 IMPRESSION: 1. No acute intracranial findings. 2. Chronic microvascular ischemic changes in bilateral periventricular white matter. ASSESSMENT: ASPECTS ([place] Stroke Program Early CT Score) is 10. ADDENDUM: 11/25/24 0651 The patient's physician, ANTONY Cabral was informed by phone by Dr. Osborn about the findings and recommendations on 11/25/2024 at 6:49 AM CDT. The ordering physician verbalized understanding. Head/Neck CTA 11/25/24 06:33 IMPRESSION: No large vessel stenosis or occlusion. IMPRESSION: 1. Moderate bilateral internal carotid artery origin stenosis. 2. Bilateral vertebral artery origin stenosis left greater than right. 3. Moderate focal stenosis of the left subclavian artery. REFERENCES: NASCET CRITERIA. The degree of stenosis in the cervical segment of the internal carotid artery is based on NASCET criteria. Normal is no stenosis. Mild is less than 50% stenosis. Moderate is 50-69% stenosis. Severe is 70% to 99% stenosis. Total occlusion is no detectable patent lumen. ADDENDUM: 11/25/24 0741 THIS REPORT CONTAINS FINDINGS THAT MAY BE CRITICAL TO PATIENT CARE. The findings were verbally communicated via telephone conference with ANTONY COOK at 7:39 AM CDT on 11/25/2024. The findings were acknowledged and understood. Abdomen/Pelvis CT 11/25/24 09:59 IMPRESSION: 1. No evidence of acute process. 2. Diverticulosis. 3. Multiple chronic appearing spinal compression deformities again identified. Grade 1 spondylolisthesis at L5-S1 with bilateral L5 spondylolysis. Chest X-Ray 11/26/24 04:00 IMPRESSION: 1. Low lung volumes with patchy parahilar atelectasis and central bronchovascular crowding. 2. Atherosclerotic vascular disease. Laboratory Results WBC 9.41 10^3/uL (3.29-11.43) 11/28/24 09:20 RBC 4.48 10^6/uL (3.85-5.65) 11/28/24 09:20 Hgb 13.90 g/dL (11.27-16.99) 11/28/24 09:20 Hct 41.0 % (37-53) 11/28/24 09:20 MCV 91.5 fl (82-101) 11/28/24 09:20 MCH 31.0 pg (27-33) 11/28/24 09:20 MCHC 33.9 g/dL (30-55) 11/28/24 09:20 RDW 13.2 % (12.1-15.1) 11/28/24 09:20 Plt Count 147 10^3/cmm (157-399) L 11/28/24 09:20 MPV 9.5 fL (7.4-10.4) 11/28/24 09:20 Neut % (Auto) 61.1 % 11/28/24 09:20 Lymph % (Auto) 24.0 % 11/28/24 09:20 [place] % (Auto) 8.8 % 11/28/24 09:20 Eos % (Auto) 4.8 % 11/28/24 09:20 Baso % (Auto) 1.0 % 11/28/24 09:20 Neut # (Auto) 5.75 10^3/uL (1.8-7.7) 11/28/24 09:20 Lymph # (Auto) 2.3 10^3/uL (0.8-4.8) 11/28/24 09:20 [place] # (Auto) 0.8 10^3/uL (0.2-0.9) 11/28/24 09:20 Eos # (Auto) 0.5 10^3/uL (0.0-0.8) 11/28/24 09:20 Baso # (Auto) 0.1 10^3/uL (0.0-0.1) 11/28/24 09:20 Nucleated RBC % (auto) 0 % 11/28/24 09:20 Nucleated RBCs # 0.0 /100WBC 11/28/24 09:20 PT 13.20 SECONDS (12.1-14.9) 11/25/24 06:41 INR 0.93 (0.8-1.2) 11/25/24 06:41 APTT 21.2 SECONDS (23.9-36.7) L 11/25/24 06:41 Specimen Type Arterial 11/25/24 21:00 Sample Site Radial, right 11/25/24 21:00 ABG pH 7.42 (7.35-7.45) 11/25/24 21:00 ABG pCO2 31.6 mmHg (35-45) L 11/25/24 21:00 ABG pO2 60.8 mmHg (80.0-100.0) L 11/25/24 21:00 ABG PO2/FiO2 Ratio 318 11/25/24 12:50 ABG HCO3 20.5 mmol/L (22-26) L 11/25/24 21:00 ABG O2 Saturation 93.6 11/25/24 21:00 ABG Base Excess -3.0 mmol/L (-2.0-2.0) L 11/25/24 21:00 Nicholas Test Pos 11/25/24 21:00 A-a O2 Gradient 6.4 mmHg (5-10) 11/25/24 21:00 Hematocrit 43.1 % (42-52) 11/25/24 21:00 Hgb O2 Saturation 92.3 % (95-100) L 11/25/24 21:00 Carboxyhemoglobin 1.4 %THgb (0.4-20.1) 11/25/24 21:00 Methemoglobin 0.0 % (0.4-1.5) L 11/25/24 21:00 Total Hemoglobin 14.0 g/dL (14-18) 11/25/24 21:00 Sodium 132.0 mmol/L (131-143) 11/25/24 21:00 Potassium 3.8 mmol/L (3.5-5.0) 11/25/24 21:00 Glucose 208.0 mg/dL (70-115) H 11/25/24 21:00 Ionized Calcium 1.2 mmol/L (1.1-1.4) 11/25/24 21:00 O2 Delivery Device None 11/25/24 21:00 FiO2 21.0 % 11/25/24 12:50 Plug Grower ID Yoni 11/25/24 21:00 Sodium 140 mmol/L (136-145) 11/28/24 04:55 Potassium 3.8 mmol/L (3.5-5.1) 11/28/24 04:55 Chloride 108 mmol/L (98-107) H 11/28/24 04:55 Carbon Dioxide 21 mmol/L (22-29) L 11/28/24 04:55 Anion Gap 14.8 (5-19) 11/28/24 04:55 BUN 13 mg/dL (8-23) 11/28/24 04:55 Creatinine 0.8 mg/dL (0.7-1.2) 11/28/24 04:55 GFR Calculation Not Reportable 11/28/24 04:55 Glucose 199 mg/dL (65-115) H 11/28/24 04:55 POC Glucose 207 mg/dL (70-110) H 11/28/24 11:03 Calculated Osmolality 296 mOsm/kg (285-295) H 11/28/24 04:55 Lactic Acid 1.3 mmol/L (0.5-2.2) 11/26/24 04:34 Lactic Acid (Sepsis) 4.0 mmol/L (0.5-2.2) H 11/25/24 09:31 Calcium 8.7 mg/dL (8.5-10.5) 11/28/24 04:55 Magnesium 2.2 mg/dL (1.7-2.3) 11/26/24 04:34 Total Bilirubin 0.6 mg/dL (0.15-1.2) 11/28/24 04:55 AST 19 U/L (0-40) 11/28/24 04:55 ALT 22 U/L (0-41) 11/28/24 04:55 Alkaline Phosphatase 44 U/L (40-130) 11/28/24 04:55 Total Protein 5.8 g/dL (6.6-8.7) L 11/28/24 04:55 Albumin 3.2 g/dL (3.5-5.2) L 11/28/24 04:55 Globulin 2.6 g/dL (1.3-4.6) 11/28/24 04:55 Urine Color Yellow (Yellow) 11/25/24 07:18 Urine Appearance Clear (CLEAR) 11/25/24 07:18 Urine pH 6.5 (5-7) 11/25/24 07:18 Ur Specific [place] 1.045 (1.005-1.030) H 11/25/24 07:18 Urine Protein Negative (Negative) 11/25/24 07:18 Urine Glucose (UA) 2+ (Normal) H 11/25/24 07:18 Urine Ketones 1+ (Negative) H 11/25/24 07:18 Urine Blood Negative (Negative) 11/25/24 07:18 Urine Nitrate Negative (Negative) 11/25/24 07:18 Urine Bilirubin Negative (Negative) 11/25/24 07:18 Urine Urobilinogen 0.2 mg/dL (Negative) 11/25/24 07:18 Ur Leukocyte Esterase Negative (Negative) 11/25/24 07:18 Urine RBC 0-2 /hpf (0-2) 11/25/24 07:18 Urine WBC 0-5 /hpf (0-5) 11/25/24 07:18 Ur Squamous Epith Cells 0-5 /hpf (0-5) 11/25/24 07:18 Amorphous Sediment Not Reportable 11/25/24 07:18 Urine Bacteria None seen /hpf (NONE) 11/25/24 07:18 Hyaline Casts 0.40 /lpf 11/25/24 07:18 Vancomycin Trough 9.5 ug/mL (10-15) L 11/27/24 11:48 Random Vancomycin 9.1 ug/mL (20.0-40.0) L 11/27/24 00:36 Urine Opiates Screen Negative ng/mL (Negative) 11/25/24 07:18 Ur Barbiturates Screen Negative ng/mL (Negative) 11/25/24 07:18 Ur Phencyclidine Scrn Negative ng/mL (Negative) 11/25/24 07:18 Ur Amphetamines Screen Negative ng/mL (Negative) 11/25/24 07:18 U Benzodiazepines Scrn Negative ng/mL (Negative) 11/25/24 07:18 Urine Cocaine Screen Negative ng/mL (Negative) 11/25/24 07:18 U Marijuana (THC) Screen Negative ng/mL (Negative) 11/25/24 07:18 Influenza A (PCR) Negative (Negative) 11/25/24 08:36 Influenza Type B (PCR) Negative (Negative) 11/25/24 08:36 RSV (PCR) Negative (Negative) 11/25/24 08:36 SARS-CoV-2 (PCR) Negative (Negative) 11/25/24 08:36 Vitals Last Vital Signs Temp 98.1 F 11/28/24 12:28 Pulse 62 11/28/24 12:28 Resp 18 11/28/24 12:28 BP 144/83 11/28/24 12:28 Pulse Ox 95 11/28/24 12:28 O2 Del Method Room Air 11/28/24 11:27 Discharge Plan Discharge Patient Disposition: Home Health Service Condition: Stable Prescriptions: Continued aspirin [Adult Low Dose Aspirin] 81 mg tablet,delayed release (DR/EC) 81 mg PO DAILY Spiriva Respimat 1.25 mcg/actuation mist 2 puff inhalation DAILY Qty: 4 5RF meloxicam 7.5 mg tablet 7.5 mg PO DAILY PRN (Reason: arthritis/pain) Qty: 90 1RF (DME) lancets Misc See Rx Instructions .Route Qty: 400 3RF Rx Instructions: As directed glipizide 5 mg tablet See Rx Instructions .ROUTE .COMPLEX Qty: 180 2RF Dose Instruction: TAKE 1 TABLET TWICE DAILY FOR DIABETES Rx Instructions: TAKE 1 TABLET TWICE DAILY FOR DIABETES metoprolol tartrate 50 mg tablet 50 mg PO BID Qty: 180 1RF (DME) True Metrix Glucose Test Strip Strip See Rx Instructions .ROUTE .COMPLEX Qty: 100 3RF Dose Instruction: TEST BLOOD SUGAR EVERY DAY DIRECTED Rx Instructions: TEST BLOOD SUGAR EVERY DAY DIRECTED lisinopril 2.5 mg tablet 2.5 mg PO DAILY Qty: 90 2RF tamsulosin 0.4 mg capsule 0.4 mg PO DAILY Qty: 90 1RF simvastatin 40 mg tablet 40 mg PO DAILY Qty: 90 3RF metformin 1,000 mg tablet See Rx Instructions .ROUTE .COMPLEX Qty: 180 3RF Dose Instruction: TAKE 1 TABLET TWICE DAILY Rx Instructions: TAKE 1 TABLET TWICE DAILY pantoprazole 40 mg tablet,delayed release (DR/EC) 40 mg PO BID Qty: 60 3RF diphenhydramine HCl [Unisom SleepGels] 50 mg Capsule 50 mg PO BEDTIME PRN (Reason: Insomnia) coQ10 (ubiquinol) 100 mg Capsule 100 mg PO DAILY Discharge Order = DC NOW: Discharge Order (Routine); Ordered 11/28/24 Ordered By: Mayela Arreaga Referrals: [facility] [Outside] Roscoe Mcneal MD [Primary Care Provider, [facility]] - 12/03/24 3:45 pm Referral Note: hospital discharge follow up Patient Instructions: Diabetic Ketoacidosis (GEN), Opioid Safety, Patient Portal & [place] Instructions Discharge Attestations Time Spent in Discharge Care*: greater than 30 min Quality Metrics Clinical Quality Measures [ No reported AMI, CVA or VTE this stay] Coding Level of Care Code Acute Code for Chg Fwd Diagnoses Sepsis A41.9 Altered mental status R41.82 DKA, type 2 E11.10 HTN (hypertension), benign I10 Type 2 diabetes mellitus without complication, without long-term current use of insulin E11.9 Diabetes mellitus complication status: without complication Diabetes mellitus care home insulin use: without remote computer terminal operator use History of chronic back pain Z87.39 Hyperlipidemia associated with type 2 diabetes mellitus E11.69; E78.5 Chronic nausea R11.0 Gastroesophageal reflux disease without esophagitis K21.9 Esophagitis presence: without esophagitis BPH (benign prostatic hyperplasia) N40.0
== END 2024-11-28 12:30 | disposition home health service (06) | DRG 637 ==
LOC: ER 10:41 → ICU 11:36 → MEDSURG 11-26 18:24
PROVIDERS: Internal Medicine; Admitting Provider Internal Medicine; Emergency Provider Emergency Medicine; PCP Family Medicine; Visit Provider Student in an Organized Health Care Education/Training Program
DX: E11.10 Type 2 diabetes mellitus with ketoacidosis without coma (principal); G93.41 Metabolic encephalopathy; A08.4 Viral intestinal infection, unspecified; I10 Essential (primary) hypertension; E78.5 Hyperlipidemia, unspecified; D72.829 Elevated white blood cell count, unspecified; R74.02 Elevation of levels of lactic acid dehydrogenase [LDH]; G89.29 Other chronic pain; M54.9 Dorsalgia, unspecified; K21.9 Gastro-esophageal reflux disease without esophagitis; N40.0 Benign prostatic hyperplasia without lower urinary tract symptoms; M15.9 Polyosteoarthritis, unspecified; Z90.49 Acquired absence of other specified parts of digestive tract; Z82.49 Family history of ischemic heart disease and other diseases of the circulatory system; Z80.9 Family history of malignant neoplasm, unspecified; Z87.891 Personal history of nicotine dependence; Z79.82 Long term (current) use of aspirin; Z79.84 Long term (current) use of oral hypoglycemic drugs; W19.XXXA Unspecified fall, initial encounter; Y92.009 Unspecified place in unspecified non-institutional (private) residence as the place of occurrence of the external cause; E11.43 Type 2 diabetes mellitus with diabetic autonomic (poly)neuropathy; K31.84 Gastroparesis; Z88.0 Allergy status to penicillin; K27.9 Peptic ulcer, site unspecified, unspecified as acute or chronic, without hemorrhage or perforation; Z98.49 Cataract extraction status, unspecified eye; I65.22 Occlusion and stenosis of left carotid artery; Z79.1 Long term (current) use of non-steroidal anti-inflammatories (NSAID); E86.0 Dehydration; S00.83XA Contusion of other part of head, initial encounter; S59.901A Unspecified injury of right elbow, initial encounter
CPT/HCPCS: 36415; 36416; 36600; 51702; 70450; 70496; 70498; 71045; 74177; 80048; 80051; 80053; 80202; 80306; 81001; 82330; 82803; 82805; 82962; 83605; 83735; 85025; 85610; 85730; 87040; 87637; 93005; 94664; 96365; 96372; 96375; 97116; 97161; 97167; 97535; 99285; J0456; J0696; J1650; J1815; J2185; J2405; J2470; J3372; J3373; J3475; J3480; J3490; J7030; J7040; J7050; J7799; J9999; Q0163

== ENCOUNTER 2024-12-25 21:54 | Emergency (ER) | payer MEDICARE, SELFPAY ==
--- OUTSIDE RECORDS SUMMARY | 2023-07-05 08:00 | XMS_ITS ---
Author Organization [facility] Address [address] [place] [address] Care Team Providers Care Coal Tower Operator Name Role Phone Roshan HICKS, Sushil Primary Care Provider Unavailab eden YONIS BE Unavailable [phone] DELMAR COATES Unavailable [phone] REASON FOR VISIT URS Stone Manip Stent Placement @ [facility] Encounters Encounter Location Date Provider Diagnosis [facility] [address] [place] [address] 07/05/2023 DELMAR COATES Plan Of Treatment No Information Progress Notes * Clovis SWENSON WDOB:[birth year] (84 yo M)Acc No.[id number]:07/05/2023 Patient: Clovis CAVAZOS Provider: Suzie COATES MD :1940 A ge:82 Y S ex:Male Date:07/05/2023 Address:[address] [place], [place] [phone] Pcp:Sushil Islas MD * Billing Information: * Visit Code: * Procedure Codes: * Electronic signature of AUST IN MD AMINATA on 12/25/2024 at 10:02 PM CDT Sign off status: Pending * Provider: Suzie COATES MD Date: 0 07/05/2023 Generated for Ninii ng/Fabarbarag/eTransmitting on: 1 10:02 PM CDT
--- OUTSIDE RECORDS SUMMARY | 2023-07-28 12:00 | XMS_ITS ---
Author Organization [facility] Address [address] [facility] [place] [address] Care Team Providers Care Environmental Service Aide Name Role Phone Roshan HICKS, Sushil Primary Care Provider Unavailab YONIS Naranjo Unavailable [phone] KIRK LEW Unavailable [phone] REASON FOR VISIT 3-4 WK W/KUB PER PASSED KIDNEY STONEE Encounters Encounter Location Date Provider Diagnosis [facility] [address] [place] [address] 07/28/2023 KIRK LEW Plan Of Treatment No Information Progress Notes * Clovis SWENSON WDOB:[birth year] (84 yo M)Acc No.[id number]:07/28/2023 Progress Notes Patient: Clovis CAVAZOS Provider: LAUREN Baker :1940 A ge:82 Y S ex:Male Date:07/28/2023 Address:[address] [place], [place] [phone] Pcp:Sushil Islas MD Subjective: * Chief Complaints: * 1 . 3-4 WK W/KUB PER PASSED KIDNEY STONEE. * Medical History: Objective: * Vitals: Assessment: Plan: * Treatment: * Billing Information: * Visit Code: * Procedure Codes: * Electronic signature of KIRK LEW APRN on 12/25/2024 at 10:00 PM CDT Sign off status: Pending * Provider: LAUREN Baker Date: 0 07/28/2023 Generated for Shahida wei/Matty/eTransmitting on: 1 10:00 PM CDT
[2024-12-25 21:57] VITALS: BP 128/76; PULSE 122; RESP 18; TEMP 36.4; O2SAT 95; BMI 27.8
--- OUTSIDE RECORDS SUMMARY | 2024-12-25 22:01 | XMS_ITS | Patient Health Record ---
Author Organization [facility] Address [address] [place] [address] Care Team Providers Care Field Consultant Name Role Phone Sushil Islas MD Primary Care Provider YONIS Nelson Unavailable [phone] Allergies Allergen (clinical drug ingredient) Drug/Non Drug [...] hydronephrosis (N13.2) Active confirmed Problem Kidney stone (25815485) Kidney calculi (N20.0) Active confirmed Problem Hydronephrosis (86403641) Hydronephrosis (N13.30) Active confirmed Problem Type 2 diabetes mellitus well controlled (527637473) Controlled diabetes mellitus type II without complication (E11.9) Active confirmed Plan Of Treatment Pending Test Test Name Order Date KUB, X-Ray: Abdomen, Kidney, Urete r, bladder 07/05/2023 Electrocardiogram (ECG) 07/01/2023 Chest X-ray PA and lateral [id number] Insurance Providers Payer Name Payer Address Payer Phone Subscriber Number Group Number Insured Name Patient Relationship to Insured Coverage Start Date Coverage End Date [employer] Medicare Replacement [address] [address] [place], [place] [id number] Clovis Boykin Self - patient is the insured Medical (General) History Medical History History ICD Code arthritis coronary artery disease diabetes high cholesterol kidney stone back pain erectile dysfunction incontinence urge nocturia low libido Surgical History Surgery Date(Month/Year) hernia repair appendectomy cholecystectomy teeth extraction bilateral cataract removal
--- OUTSIDE RECORDS SUMMARY | 2024-12-25 22:01 | XMS_ITS | Patient Health Record ---
Author Organization [facility] Address [address] [place] [address] Care Team Providers Care Ticket Dispatcher Name Role Phone Michelle Morales Primary Care Provider [phone] Johnathan Luna [phone] Allergies Allergen (clinical drug ingredient) Drug/Non Drug [...] Immunizations Vaccine Route Administration Date Status Comme nts Afluria Quadrivalent Influenza Vaccine 3 years+ IM Intramuscular [...] Problem Status W/U Status Risk Notes Problem Polyneuropathy due t o type 2 diabetes mellitus (524511937) Type 2 diabetes mellitus with diabetic polyneuropathy (E11.42) Active confirmed Problem Chronic pain (73708429) Other chronic pain (G89.29) Active confirmed Problem Long-term current us e of insulin (293445443) clinical trial manager (current) use of insulin (Z79.4) Active confirmed Problem Lower urinary tract symptoms due to benign prostatic hypertrophy (10460602892780) Benign prostatic hyperplasia with lower urinary tract symptoms (N40.1) Active confirmed Problem Migraine with aura (0528406) Migraine with aura and without status migrainosus, not intractable (G43.109) Active confirmed Problem Hypercholesterolemia (80648111) Hypercholesterolemia (E78.00) Active confirmed Problem Occlusion of right carotid artery (947595201890038) Occlusion of right carotid artery (I65.21) Active confirmed Problem Left carotid artery occlusion (097690280896766) Left carotid artery occlusion (I65.22) Active confirmed Problem Dizziness (478761314) Dizziness (780.4) 0 2013 Active confirmed [id number]-98 [id number]- Problem Slowing of urinary stream (54450805) Slowing of urinary stream (788.62) 2012 Problem resolved confirmed [id number]-98 [id number]- Problem Needs influenza immunization (863701466) Vaccination against other viral diseases, Influenza (V04.81) 2012 Problem resolved confirmed [id number]-98 [id number]- Problem Administration of vaccine product containing only Streptococcus pneumoniae antigen (procedure) (18994548) Vaccination against pneumococcal pneumonia (V03.82) 2011 Problem resolved confirmed [id number]-[id number]- Problem Gastroesophageal reflux disease (194394123) GERD (530.81) 2011 Problem resolved confirmed [id number]-[id number]- Problem Diarrhea (96287929) Diarrhea (787.91) 2011 Problem resolved confirmed [id number]-98 [id number]- Problem Vertebral artery syndrome (10514340) Vertebral artery insufficiency (435.1) 2014 Problem resolved confirmed [id number]-98 [id number]- Problem Thrush (83786057) Thrush (112.0) 2016 Problem resolved confirmed [id number]-98 [id number]- Problem Renal calculus (64385544) Renal calculus (592.0) 2015 Problem resolved confirmed [id number]-98 [id number]- Problem Neurologic disorder associated with type II diabetes mellitus (258733471) 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 (250.62) 2013 Problem resolved confirmed [facility]-98 [id number]- Problem Hip pain (18459357) Hip pain (719.45) 2016 Problem resolved confirmed [facility]-98 [id number]- Problem Diverticulitis of colon (346417646) Diverticulitis of colon (562.11) 2016 Problem resolved confirmed [facility]-98 [id number]- Problem Chronic insomnia (685832863) Chronic insomnia (307.42) 2017 Problem resolved confirmed [facility]-98 [id number]- Problem Abnormal laborat ory test findings without diagnosis (796.4) 2018 Problem resolved confirmed [facility]-98 [id number]- Problem Epidermal inclusion cyst (209009312) Epidermal inclusion cyst (706.2) 2015 Problem resolved confirmed [id number]-98 [id number]- Problem Inguinal hernia (134311030) Uncomplicated right inguinal hernia (550.90) 2015 Problem resolved confirmed [facility]-98 [id number]- Problem Bursitis of hip (13894693) Bursitis of hip (726.5) 2017 Problem resolved confirmed [facility]-98 [id number]- Problem Neoplasm of uncertai n behavior of skin (29236270) Atypical skin lesion (238.2) 2018 Problem resolved confirmed [id number]-98 [id number]- Problem 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) 2014 Problem resolved confirmed [facility]-98 [id number]- Problem Benign prostatic hypertrophy (466253566) BPH (600.00) 2016 Problem resolved confirmed [facility]-98 [id number]- Problem Precordial pain (24515479) Precordial chest pain (786.51) 2018 Problem resolved confirmed [facility]-98 [id number]- Problem Influenza with non-respiratory manifestation (54661214) Flu like symptoms (487.8) 2016 Problem resolved confirmed [facility]-98 [id number]- Problem Chest pain (10292816) Chest pain (786.51) 2017 Problem resolved confirmed [facility]-98 [id number]- Problem Osteopenia (258307157) Osteopenia (733.90) 2017 Problem resolved confirmed [facility]-98 [id number]- Problem Shortness of breath (804505786) Shortness of breath (786.09) 2018 Problem resolved confirmed [facility]-98 [id number]- Problem Hypercholesterolemia (79805931) Hypercholesterolemia (272.0) 2016 Problem resolved confirmed [facility]-98 [id number]- Problem Headache (38622927) Headache (307.81) 2017 Problem resolved confirmed [facility]-98 [id number]- Problem Orchitis and epididymitis (210472988) Epidymitis, unspecified (604.90) 2015 Problem resolved confirmed [facility]-98 [id number]- Problem Diverticulitis (563247278) Diverticulitis (562.11) 2016 Problem resolved confirmed [facility]-98 [id number]- Problem Androgen deficiency (20449313) Testosterone deficiency (257.2) 2015 Problem resolved confirmed [facility]-98 5911- Problem Cough (72910611) Cough (786.2) 2012 Problem resolved confirmed [facility]-98 5911- Problem Memory loss (57387933) Memory loss (780.93) 2017 Problem resolved confirmed [facility]-98 5911- Problem Pain in thoracic spine (137167770) Pain in thoracic spine (724.1) 2015 Problem resolved confirmed [facility]-98 [id number]- Problem Gross hematuria (709809916) Gross hematuria (599.71) 2016 Problem resolved confirmed [facility]-98 5911- Problem Acute non-suppurativ e otitis media - serous (375489482) Acute serous otitis media (381.01) 2014 Problem resolved confirmed [facility]-98 [id number]- Problem Dehydration (14311097) Dehydration (276.51) 2018 Problem resolved confirmed [facility]-98 5911- Problem Hypercalcemia (21583126) Hypercalcemia (275.42) 2016 Problem resolved confirmed [facility]-98 5911- Problem Herpetic brinda (16067161) Herpetic brinda (054.6) 2013 Problem resolved confirmed [facility]-98 [id number]- Problem Essential hypertension (89811042) Essential hypertension (401.1) 2016 Active confirmed [facility]-98 5911- Problem Osteoarthritis of hi p (772975082) 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) 2017 Active confirmed [facility]-98 5911- Problem Multiple thoraci c compression fractures (805.2) 2015 Active confirmed [facility]-98 [id number]- Problem Nausea (653718822) Nausea (787.02) 2012 Problem resolved confirmed [facility]-98 5911- Problem Left ventricular hypertrophy (63544019) LVH (429.3) 2011 Problem resolved confirmed [facility]-98 5911- Problem Knee pain (8400256818) Knee pain (719.46) 2012 Problem resolved confirmed [facility]-98 5911- Problem Abdominal pain (94516965) Abdominal pain (789.09) 2012 Problem resolved confirmed [facility]-98 5911- Problem Insomnia (323396694) Insomnia (307.41) 2012 Problem resolved confirmed [facility]-98 5911- Problem Acute exacerbation o f chronic obstructive airways disease (094860352) Chronic bronchitis, obstructive, with (acute) exacerbation (491.21) 2012 Problem resolved confirmed [facility]-98 5911- Problem Screening for ca ncer - other (V76.49) 2012 Problem resolved confirmed [facility]-98 5911- Problem Hyperlipidemia (62607155) Hyperlipidemia (272.4) 2011 Problem resolved confirmed [facility] [place] [place]-98 5911- Problem Diabetes mellitus type 2 (disorder) (74595141) Type 2 diabetes (250.00) 2011 Active confirmed [facility] [place] [place]-98 5911- Plan Of Treatment No Information Insurance Providers Payer Name Payer Address Payer Phone Subscriber Number Group Number Insured Name Patient Relationship to Insured Coverage Start Date Coverage End Date [employer] Commercial - Out of Network [address] [address] [place] [address] [id number] Vidalsabrina brock Cl[place] Self - patient is the insured 7 Medical (General) History Medical History History ICD Code Hypertension Hypercholesterolemia Hx of Myocardial infarction LVH GERD Type 2 diabetes Peripheral neuropathy Osteoarthritis Hx of compression fractures; thoracic Osteopenia Macular degeneration BPH Testosterone deficiency Insomnia Electrocution, 1976 Surgical History Surgery Date(Month/Year) Hernia repair Cataract removal Arthroscopy; left knee Cholecystectomy Appendectomy
--- OUTSIDE RECORDS SUMMARY | 2024-12-25 22:03 | XMS_ITS | Data Portability ---
Author Organization [facility] Leander Carr [facility] Aiden Cook [facility] Address [address] [place] [address] Care Team Providers Care Sleeping Car Porter Name Role Phone JIMMY MCNEAL Primary Care Provider Assessment No assessment recorded. Plan of Treatment Reminders Order Date Submit Date Provider Last Modified By Organization Details Last Modified Time Details Appointments None recorded. Lab microalbumi n/creatinin e, mass ratio, urine 2024 025 [facility], [address] [place] [address] 248, [address], [place], [address], 5 05:50:55 hemoglobin A1C/hemoglo bin total, QN, blood 2024 025 [facility], [address], [place], [address], 5 17:06:25 CMP, serum or plasma 2024 025 [facility], [address], [address], [place], [address], 5 17:12:10 CBC 2024 025 [facility], [address], [address], [place], [address], 5 17:00:49 lipid panel, blood 2024 025 [facility], [address], [address], [place], [address], 5 17:12:13 H pylori Ag, stool 2023 024 [facility], [address] [place] [address] 248, [address], [place], [place], [address], 4 13:24:43 fecal occult blood, QN, stool 2023 024 [facility] ([facility]), [address] [place], [address], 4 13:05:27 CBC 2023 024 [facility], [address], [address], [place], [address], 4 16:02:25 microalbumi n/creatinin e, mass ratio, urine 2023 024 [facility]zei [facility], [address] [place] [address], [address], [place], [address], 4 12:58:10 HbA1c (hemoglobin A1c), blood 2023 024 [facility] ([facility]), [address] [place], [address], 4 11:50:06 lipid panel, blood 2023 024 [facility]pliler [facility], [address] [place] [address] 248, [address], [place], [address], 4 07:51:31 Referral None recorded. Procedures None recorded. Surgeries None recorded. Imaging None recorded. Medication Orders Celebrex 200 mg capsule 2024 025 [facility], [address] [facility], [place], [address], 5 15:58:31 pantoprazol e 40 mg tablet,mil yed release 2023 [facility] 15, [address], [place], [address], 4 15:02:14 fluticasone propionate 50 mcg/actuati on nasal spray,suspe nsion 2023 [facility], [address], [place], [address], 10:45:17 Patient TargetsNo targets recorded. Patient InstructionsNo instructions recorded. Reason for Referral None Reported. Results Created Date Observation Date Name Description Value Unit Range Abnormal Flag Note LastModifiedBy Organization Detail LastModifiedTime 11/23/1911/24/2023 LIPID PANEL , STAND LETTY cholesterol, total 174 mg/dL <200 normal Not Available [facility] [address] [address] [place], [address], 11/24/2023 12:58:10 11/23/1911/24/2023 LIPID PANEL , STAND LETTY HDL cholesterol 33 mg/dL > or = 40 low Not Available [facility] [address] [place], [address], 11/24/2023 12:58:10 11/23/1911/24/2023 LIPID PANEL , STAND LETTY triglyceride s 458 mg/dL <150 high If a non-f astin g speci men was colle cted, consi lisette repea t trigl yceri de testi ng on a fasti ng speci men if clini azeb indic ated. Luis Eduardo lynn et al. J. of Clin. Lipid ol. 2015; 9:129 -169. Not Available [facility] [address] [place], [address], 11/24/2023 12:58:10 11/23/1911/24/2023 LIPID PANEL , STAND LETTY LDL-choleste rol mg/dL _(kyle c) LDL julee stero l not calcu lated . Trigl yceri de level s great er than 400 mg/dL inval idate calcu lated LDL resul ts. Refer ence range : <100 Sally able range <100 mg/dL for prima ry preve ntion ; <70 mg/dL for patie nts with CHD or diabe tic patie nts with > or = 2 CHD risk facto rs. LDL-C is now calcu lated using the Dionne n-Hop kins calcu latio n, which is a valid ated novel metho d provi ding neville r accur acy than the Fried bud equat ion in the estim ation of LDL-C . Dionne brock SS et al. RAD. 2013; 310(1 9): 2061- 2068 (http ://ed ucati on.Thalchemy. com/f aq/FA Q164) Not Available [facility] [address] [place], [address], 11/24/2023 12:58:10 11/23/19 24 11/24/2023 LIPID PANEL , STAND LETTY chol/HDLC ratio 5.3 (calc ) <5.0 high Not Available [facility] [address] [place], [address], 11/24/2023 12:58:10 11/23/19 24 11/24/2023 LIPID PANEL , STAND LETTY non HDL cholesterol 141 mg/dL _(kyle c) <130 high For patie nts with diabe eran plus 1 major ASCVD risk facto r, treat ing to a non-H DL-C goal of <100 mg/dL (LDL- C of <70 mg/dL ) is consi claudiad a thera peuti c optio n. Not Available [facility] [address] [place], [address], 11/24/2023 12:58:10 11/23/19 24 11/24/2023 ALBUM IN, RANDO M URINE W/CRE ATINI NE creatinine, random urine 164 mg/dL 20-320 normal Not Available [facility] [address] [place], [address], 11/24/2023 12:58:10 11/23/19 24 11/24/2023 ALBUM IN RANDO M URINE W/CRE ATINI NE albumin, urine 2.6 mg/dL see note: normal Refer ence Range : Refer ence Range Not estab lishe d Not Available [facility] [address] [address], [place], [address], 11/24/2023 12:58:10 11/23/19 24 11/24/2023 ALBUM INAMBER M URINE W/CRE ATINI NE albumin/crea tinine ratio, random urine 16 mg/g_ creat <30 normal The ADA defin es abnor malit ies in album in excre tion as follo ws: Album inuri a Categ ory Resul t (mg/g creat inine ) Kiki l to Mildl y incre ased <30 Moder ately incre ased 30-29 9 Sever geo incre ased > OR = 300 The ADA recom mends that at least two of three speci mens colle cted withi n a 3-6 month perio d be abnor mal befor e consi odin g a patie nt to be withi n a diagn ostic categ ory. Not Available [facility] [address] [address], [place], [address], 11/24/2023 12:58:10 11/23/19 24 11/23/2023 HbA1c (hemo globi n A1c), blood HbA1c 8.2 Not Available [facility] ([facility]) [address] [place], [address], 11/23/2023 10:41:52 01/18/20 24 01/18/2024 CBC WBC 12.2 x10 4.5-10 .5 high Not Available [facility] [address], [address], 01/18/2024 16:02:25 01/18/20 24 01/18/2024 CBC RBC 4.95 x10 4.30-5 .90 Not Available [facility] [address], [place], [address], 01/18/2024 16:02:25 01/18/20 24 01/18/2024 CBC HGB 15.9 g/dL 13.5-1 8.0 Not Available [facility] [address] [facility] [address], [place], [address], 01/18/2024 16:02:25 01/18/20 24 01/18/2024 CBC HCT 46.7 % 35.0-6 0.0 Not Available [facility] [address] [facility] [address] [facility], [place], [address], 01/18/2024 16:02:25 01/18/20 24 01/18/2024 CBC MCV 94.3 fL 80.0-9 9.9 Not Available [facility] [address] [facility] [address] [facility] [address], [place], [address], 01/18/2024 16:02:25 01/18/20 24 01/18/2024 CBC MCH 32.1 pg 27.0-3 2.0 high Not Available [facility] [address] [facility] [address], [place], [address], 01/18/2024 16:02:25 01/18/20 24 01/18/2024 CBC MCHC 34.1 g/dL 32.0-3 6.0 Not Available [facility] [address] [facility], [place], [address], 01/18/2024 16:02:25 01/18/20 24 01/18/2024 CBC RDW 13.5 % 11.5-1 4.5 Not Available [facility] [address] [facility] [address], [place], [address], 01/18/2024 16:02:25 01/18/20 24 01/18/2024 CBC plt 145.6 x10 150.0- 451.0 low Not Available [facility] [address] [address], [place], [address], 01/18/2024 16:02:25 01/18/20 24 01/18/2024 CBC lymphocytes % 33.6 % 20.0-5 0.0 Not Available [facility] [address] [address], [place], [address], 01/18/2024 16:02:25 01/18/20 24 01/18/2024 CBC granulcytes % 54.5 % 30.0-7 0.0 Not Available [facility] [address] [address], [place], [address], 01/18/2024 16:02:25 01/18/20 24 01/18/2024 CBC monocytes % 8.7 % 2.0-16 .0 Not Available [facility] [address] [address], [place], [address], 01/18/2024 16:02:25 01/18/20 24 01/18/2024 CBC granulcytes# 6.7 x10 Not Klaudia ilable [facility] [address] [address], [place], [address], 01/18/2024 16:02:25 01/18/20 24 01/18/2024 CBC lymphocytes # 4.1 x10 Not Available [facility] [address] [address], [place], [address], 01/18/2024 16:02:25 01/18/20 24 01/18/2024 CBC monocytes # 1.1 x10 Not Avai cloverle [facility] [address] [facility] 1, [place], [address], 01/18/2024 16:02:25 01/19/20 24 01/23/2024 HELIC OBACT ER PYLOR I AG, EIA, STOOL helicobacter pylori Ag, EIA, stool SEE NOTE HELIC OBACT ER PYLOR I AG, EIA, STOOL Micro Numbe r: [id number] Test Statu s: Final Speci men Sourc e: Stool Speci men Quali ty: Adequ ate H.pyl chiara Ag: Not Detec adilson Antim icrob ials, lynnette n pump inhib itors , and bismu th prepa ratio ns inhib it H. pylor i and inges tion up to two weeks prior to testi ng may cause false negat jaylon resul ts. If clini azeb indic ated the test shoul d be repea adilson on a new speci men obtai aylin two weeks after disco ntinu ing treat ment. Refer ence Range : Not Detec adilson Not Available [employer] [facility] [address] [place], [address], 01/23/2024 13:24:43 01/19/20 24 01/19/2024 fecal occul t blood , immun oassa y, stool iFOB negati ve Not Available [facility] ([facility]) [address] [place], [address], 01/19/2024 17:34:20 10/30/19 25 10/29/2024 CBC WBC 12.1 x10 4.5-10 .5 high Not Available [facility] [address] [facility] 1, [place], [address], 10/29/2024 17:00:49 10/30/19 25 10/29/2024 CBC RBC 5.05 x10 4.30-5 .90 Not Available [facility] [address] [facility] [address], [place], [address], 10/29/2024 17:00:49 10/30/1910/29/2024 CBC HGB 15.7 g/dL 13.5-1 8.0 Not Available [facility] [address] [facility], [place], [address], 10/29/2024 17:00:49 10/30/1910/29/2024 CBC HCT 48.8 % 35.0-6 0.0 Not Available [facility] [address] [facility] [address] [facility], [place], [address], 10/29/2024 17:00:49 10/30/1910/29/2024 CBC MCV 96.7 fL 80.0-9 9.9 Not Available [facility] [address] [facility] [address] [facility], [place], [address], 10/29/2024 17:00:49 10/30/1910/29/2024 CBC MCH 31.1 pg 27.0-3 2.0 Not Available [facility] [address] [facility] [address], [place], [address], 10/29/2024 17:00:49 10/30/1910/29/2024 CBC MCHC 32.2 g/dL 32.0-3 6.0 Not Available [facility] [address] [facility] [address], [place], [address], 10/29/2024 17:00:49 10/30/1910/29/2024 CBC RDW 13.6 % 11.5-1 4.5 Not Available [facility] [address] [facility] [address], [place], [address], 10/29/2024 17:00:49 10/30/1910/29/2024 CBC plt 150.6 x10 150.0- 451.0 Not Available [facility] [address] [facility] [address] [facility], [place], [address], 10/29/2024 17:00:49 10/30/19 25 10/29/2024 CBC lymphocytes % 32.8 % 20.0-5 0.0 Not Available [facility] [address] [facility], [place], [address], 10/29/2024 17:00:49 10/30/19 25 10/29/2024 CBC granulcytes % 56.8 % 30.0-7 0.0 Not Available [facility] [address] [facility], [place], [address], 10/29/2024 17:00:49 10/30/19 25 10/29/2024 CBC monocytes % 7.3 % 2.0-16 .0 Not Available [facility] [address] [address], [place], [address], 10/29/2024 17:00:49 10/30/19 25 10/29/2024 CBC granulcytes# 6.9 x10 Not Klaudia ilable [facility] [address] [address], [place], [address], 10/29/2024 17:00:49 10/30/19 25 10/29/2024 CBC lymphocytes # 4.0 x10 Not Available [facility] [address] [address], [place], [address], 10/29/2024 17:00:49 10/30/19 25 10/29/2024 CBC monocytes # 0.9 x10 Not Avai lable [facility] [address] [address], [place], [address], 10/29/2024 17:00:49 10/30/19 25 10/29/2024 HBA1C hemaglobin A1C 7.8 4.2-6. 5 high Not Available [facility] [address] [facility], [place], [address], 10/29/2024 17:06:25 10/30/19 25 10/29/2024 CMP (MALE ) glucose 285.0 mg/dL 60.0-9 9.0 high Not Available [facility] [address] [facility], [place], [address], 10/29/2024 17:12:10 10/30/19 25 10/29/2024 CMP (MALE ) BUN (blood urea nitrogen) 15.0 mg/dL 10.0-2 6.0 Not Available [facility] [address] [facility], [place], [address], 10/29/2024 17:12:10 10/30/19 25 10/29/2024 CMP (MALE ) creatinine (serum) 0.9 mg/dL 0.4-1. 5 Not Available [facility] [address] [facility] 1, [place], [address], 10/29/2024 17:12:10 10/30/19 25 10/29/2024 CMP (MALE ) BUN/creatini ne ratio 16.67 ratio Not Available [facility] [address] [facility], [place], [address], 10/29/2024 17:12:10 10/30/19 25 10/29/2024 CMP (MALE ) eGFR calculated 85.4 Not Available [facility] [address] [facility], [place], [address], 10/29/2024 17:12:10 10/30/19 25 10/29/2024 CMP (MALE ) total protein 7.3 g/dL 6.0-8. 5 Not Available [facility] [address] [facility], [place], [address], 10/29/2024 17:12:10 10/30/19 25 10/29/2024 CMP (MALE ) total bilirubin 0.9 mg/dL 0.2-1. 3 Not Available [facility] [address] [facility], [place], [address], 10/29/2024 17:12:10 10/30/19 25 10/29/2024 CMP (MALE ) albumin 4.4 g/dL 3.5-5. 5 Not Available [facility] [address] [facility] 1, [place], [address], 10/29/2024 17:12:10 10/30/19 25 10/29/2024 CMP (MALE ) globulin 2.9 calc Not Available [facility] [address] [address], [place], [address], 10/29/2024 17:12:10 10/30/19 25 10/29/2024 CMP (MALE ) AST (SGOT) 27.0 U/L 0.0-46 .0 Not Available [facility] [address] [facility] 1, [place], [address], 10/29/2024 17:12:10 10/30/19 25 10/29/2024 CMP (MALE ) altv (SGPT) 20.0 U/L 13.0-6 9.0 normal Not Available [facility] [address] [address], [place], [address], 10/29/2024 17:12:10 10/30/19 25 10/29/2024 CMP (MALE ) A/G ratio 1.5 ratio Not Available [facility] [address] [address], [place], [address], 10/29/2024 17:12:10 10/30/19 25 10/29/2024 CMP (MALE ) ALP phos 53.0 U/L 30.0-1 40.0 normal Not Available [facility] [address] [place], [address], 10/29/2024 17:12:10 10/30/1910/29/2024 CMP (MALE ) calcium 9.8 mg/dL 8.4-10 .5 Not Available [facility] [address] [facility], [place], [address], 10/29/2024 17:12:10 10/30/19 25 10/29/2024 CMP (MALE ) sodium 138.0 mmol/ L 136.0- 145.0 Not Available [facility] [address] [facility] 1, [place], [address], 10/29/2024 17:12:10 10/30/1910/29/2024 CMP (MALE ) potassium 4.8 mmol/ L 3.5-5. 1 Not Available [facility] [address] [facility] 1, [place], [address], 10/29/2024 17:12:10 10/30/19 25 10/29/2024 CMP (MALE ) chloride 103.0 mmol/ L 98.0-1 10.0 normal Not Available [facility] [address] [facility] 1, [place], [address], 10/29/2024 17:12:10 10/30/1910/29/2024 CMP (MALE ) C02 25.0 mmol/ L 22.0-3 1.0 Not Available [facility] [address] [facility] 1, [place], [address], 10/29/2024 17:12:10 10/30/1910/29/2024 CMP (MALE ) anion gap 10.0 calc Not Available [facility] [address] [facility] 1, [place], [address], 10/29/2024 17:12:10 10/30/19 25 10/29/2024 CMP (MALE ) osmolality 295.3 calc Not Available [facility] [address] [facility] 1, [place], [address], 10/29/2024 17:12:10 10/30/19 25 10/29/2024 LIPID PROFI LE (MALE ) cholesterol 180.0 mg/dL 0.0-20 0.0 Not Available [facility] [address] [facility] 1, [place], [address], 10/29/2024 17:12:13 10/30/19 25 10/29/2024 LIPID PROFI LE (MALE ) trig 226.0 mg/dL 0.0-15 0.0 high Not Available [facility] [address] [facility] 1, [place], [address], 10/29/2024 17:12:13 10/30/19 25 10/29/2024 LIPID PROFI LE (MALE ) HDL - direct 43.0 mg/dL >40.0 Not Available [facility] [address] [facility] 1, [place], [address], 10/29/2024 17:12:13 10/30/1910/29/2024 LIPID PROFI LE (MALE ) VLDL - direct 45.2 mg/dL Not Available [facility] [address] [facility] 1, [place], [address], 10/29/2024 17:12:13 10/30/19 25 10/29/2024 LIPID PROFI LE (MALE ) LDL - direct 91.8 mg/dL 0.0-13 0.0 Not Available [facility] [address] [facility] 1, [place], [address], 10/29/2024 17:12:13 10/30/19 25 10/30/2024 ALBUM IN, RANDO M URINE W/CRE ATINI NE creatinine, random urine 97 mg/dL 20-320 normal Not Available [address] [address] [place], [address], 10/30/2024 05:50:55 10/30/1910/30/2024 ALBUM IN, RANDO M URINE W/CRE ATINI NE albumin, urine 0.7 mg/dL see note: normal Refer ence Range : Refer ence Range Not estab lishe d Not Available [facility] [address] [address], [place], [address], 10/30/2024 05:50:55 10/30/1910/30/2024 ALBUM IN, RANDO M URINE W/CRE ATINI NE albumin/crea tinine ratio, random urine 7 mg/g_ creat <30 normal The ADA defin es abnor malit ies in album in excre tion as follo ws: Album inuri a Categ ory Resul t (mg/g creat inine ) Kiki l to Mildl y incre ased <30 Moder ately incre ased 30-29 9 Sever geo incre ased > OR = 300 The ADA recom mends that at least two of three speci mens colle cted withi n a 3-6 month perio d be abnor mal befor e consi odin g a patie nt to be withi n a diagn ostic categ ory. Not Available [facility] [address] [place], [address], 10/30/2024 05:50:55 Result Notes None recorded. Problems Name Problem SNOMED Code Status Onset Date Resolution Date Notes Provider Name and Address Organization Details Recorded Time Kidney stone 12905165 Active 2003 MEENA Gonzalez [facility] L[facility]LGino 5 14:27:49 Myocardial infarction 94542596 Active 2003 MEENA Gonzalez [facility] L.L.CParul 14:27:55 Type 2 diabetes mellitus 32732314 Active 2023 Jimmy Mcneal MD [address] [place] [address], [phone], [facility] 5 09:58:49 Hypercholester olemia 40613129 Active 2023 ROBER HIGGINBOTHAMG julia [facility] 4 10:32:56 Essential hypertension 81866273 Active 2023 ROBER dumont [facility] 4 10:33:06 Benign prostatic hyperplasia without outflow obstruction 515297750 Active 2023 ROBERSA JACQUES julia [facility] 4 10:33:33 Allergic rhinitis 38381120 Active 2023 Amado dumont [facility] 5 14:27:38 Hiatal hernia with gastroesophage al reflux 375888505 Active 2023 Amado dumont [facility] 5 14:27:47 Melena 6387168 Active 2023 Amado dumont [facility] 5 14:27:52 Diabetes mellitus 36572238 Active 2023 Amado dumont [facility] 5 14:27:44 Benign prostatic hyperplasia 215014253 Active 2023 Amado dumont [facility] 5 14:27:40 Generalized osteoarthritis 156430696 Active 2024 Jimmy Mcneal MD [address] [place] [address], [phone], [facility] 5 15:56:22 Acute urinary tract infection 062216251 Active 2024 Jimmy Mcneal MD [address] [place] [address], [phone], [facility] 5 16:58:17 Problem Notes None recorded. Procedures Surgical History Date Name Laterality Status Provider Name and Address Organization Details Recorded Time Appendectomy completed [facility] 11/23/2023 10:26:17 Cholecystectomy completed [facility]CParul 11/23/2023 10:26:23 Hernia Repair completed [facility] 11/23/2023 10:26:29 Imaging Results None recorded. Procedure Notes None recorded. Medical Equipment None Reported. Allergies Allergen ID Allergen Name Allergen Category Reaction Reaction Severity Criticality Documentation Date Start Date Code Code System Note Provider Name and Address Organization Details Recorded Time 52218 Product containin g penicilli n (product) medicatio n Not available Not available Not available 10/09/2022 75082 8001 SNOMED Zenaida Russo [facility] 4 07:50:45 Medications Name Sig Start Date Stop Date Status Note LastModified by Organization Details LastModified Time Zocor 20 mg tablet QD 11/22 completed Recorded 01/15/20 03 11:49AM by Nona Pena RN, Phone Encounte r; Refill Quantity : 90; Tab; Not Available Not Available Not Available Toprol XL 50 mg tablet,ex tended release QD 11/22 completed Recorded 01/15/20 03 11:48AM by Nona Pena RN, Phone Encounte r; Refill Quantity : 90; Tab SR 24HR; Not Available Not Available Not Available ibuprofen 800 mg tablet BID 11/22 completed Recorded 08/23/19 04 2:08PM by Abel Benavidez MD, Office Visit; Refill Quantity : 0; Not Available Not Available Not Available simvastat in 40 mg tablet Take 1 tablet every day by oral route for 90 days. 2024 active Not Available Not Available Not Avai lable ketorolac 10 mg tablet TAKE 1 TABLET BY MOUTH EVERY 6 HOURS NEEDED FOR PAIN FOR 5 DAYS 11/22 completed Not Available Not Available Not Available Celebrex 200 mg capsule QD 2024 active Not Available Not Available Not Avai lable meloxicam 7.5 mg tablet 1 tablet every day prn 10/29 completed Not Available Not Available Not Available tamsulosi n 0.4 mg capsule TAKE 1 CAPSULE EVERY DAY 2024 active Not Available Not Available Not Avai lable Altace 10 mg capsule QD 11/22 completed Recorded 08/23/19 04 2:08PM by Abel Benavidez MD, Office Visit; Refill Quantity : 0; Not Available Not Available Not Available pantopraz ole 40 mg tablet,de layed release TAKE 1 TABLET BY MOUTH TWICE DAILY FOR HIATAL HERNA AND REFLUX active Not Available Not Available No t Available metformin 1,000 mg tablet Take 1 tablet twice a day by oral route. 2024 active Not Available Not Available Not Avai lable metoprolo l tartrate 50 mg tablet Take 1 tablet twice a day by oral route for 90 days. 2024 active Not Available Not Available Not Avai lable nitroglyc sweta 0.4 mg sublingua l tablet PRN 11/22 completed Recorded 01/15/20 03 11:47AM by Nona Pena RN, Phone Encounte r; Refill Quantity : 20; SL Tab; Not Available Not Available Not Available ondansetr on 4 mg disintegr ating tablet DISSOLVE 1 TABLET IN MOUTH EVERY 8 HOURS NEEDED FOR NAUSEA AND VOMITING active Not Available Not Available No t Available fluticaso ne propionat e 50 mcg/actua tion nasal spray,tera pension [place] 1 spray every day by intranas al route. active Not Available Not Available No t Available lisinopri l 2.5 mg tablet Take 1 tablet every day by oral route for 90 days. active Not Available Not Available No t Available glipizide 5 mg tablet take 1 tablet twice a day active Not Available Not Available No t Available hydroxyzi ne HCl PRN 11/22 completed Recorded 01/15/20 03 11:50AM by Nona Pena RN, Phone Encounte r; Refill Quantity : 90; Tab; Not Available Not Available Not Available nitroglyc sweta BID 11/22 completed Recorded 01/15/20 03 11:49AM by Nona Pena RN, Phone Encounte r; Refill Quantity : 180; Cap CR; Not Available Not Available Not Available Flomax QD 11/22 completed Recorded 08/23/19 04 2:08PM by Abel Benavidez MD, Office Visit; Refill Quantity : 0; Not Available Not Available Not Available Prilosec qd 11/22 completed Recorded 08/23/19 04 2:08PM by Abel Benavidez MD, Office Visit; Refill Quantity : 0; Not Available Not Available Not Available True Metrix Glucose Test Strip active Not Available Not Available Not Available Vitals Date Recorded Body height Body mass index (BMI) Body weight Oxygen saturation Oxygen saturation in Arterial blood by Pulse oximetry Heart rate Respiratory rate Body temperature Systolic And Diastolic Provider Name and Address Organization Details Last Updated DateTime 5 180.34 cm 28.3 kg/m2 77297.2 5 g 94 % 94 % 76 /min 20 /min 97.1 [degF] 96/60 mm[Hg] [facility] 5 15:33:17 Date Recorded Respiratory rate Body height Body mass index (BMI) Body weight Body temperature Heart rate Oxygen saturation Oxygen saturation in Arterial blood by Pulse oximetry Systolic And Diastolic Provider Name and Address Organization Details Last Updated DateTime 4 20 /min 180.34 cm 28.4 kg/m2 86941.0 5 g 97.5 [degF] 127 /min 96 % 96 % 140/80 mm[Hg] [facility] JACQU[facility] 4 10:20:45 Date Recorded Body height Body mass index (BMI) Body weight Oxygen saturation Oxygen saturation in Arterial blood by Pulse oximetry Heart rate Respiratory rate Body temperature Systolic And Diastolic Provider Name and Address Organization Details Last Updated DateTime 5 180.34 cm 28 kg/m2 91659.0 7 g 94 % 94 % 68 /min 20 /min 96.8 [degF] 116/60 mm[Hg] [facility] 5 16:45:25 Date Recorded Body height Body mass index (BMI) Body weight Respiratory rate Body temperature Heart rate Oxygen saturation Oxygen saturation in Arterial blood by Pulse oximetry Systolic And Diastolic Provider Name and Address Organization Details Last Updated DateTime 4 180.34 cm 28.5 kg/m2 32719.6 4 g 20 /min 97.7 [degF] 85 /min 94 % 94 % 130/80 mm[Hg] [facility] 4 14:28:40 Social History Question Answer Notes LastModified by Organizat ion Details LastModified Time Tobacco Smoking Status Former Smoker ROBERSA GEORGIE [facility] 11/23/2023 10:28:49 Do You Have An Advance Directive? No Information not available 11/23/2023 Are You Blind Or Do You Have Difficulty Seeing? No Information not available 11/23/2023 What Is Your Level Of Caffeine Consumption? Moderate Information not available 11/23/2023 Are You Deaf Or Do You Have Serious Difficulty Hearing? No Information not available 11/23/2023 What Type Of Diet Are You Following? REGULAR Information not available 11/23/2023 What Is The Highest Grade Or Level Of School You Have Completed Or The Highest Degree You Have Received? [id number] Information not available 11/23/2023 Which Of Your Hands Is Dominant? Right Information not available 11/23/2023 What Was The Date Of Your Most Recent Tobacco Screening? 10/29/2024 [email or web address] Information not available 10/29/2024 At What Age Did You Start Smoking Tobacco? 10 [email or web address] Information not available 10/29/2024 Have You Recently Traveled Abroad? No Information not available 11/23/2023 Do You Have Difficulty Walking Or Climbing Stairs? No Information not available 11/23/2023 Are You Currently In School? No Information not available 11/23/2023 Do You Have Any Dietary Restrictions? No Information not available 11/23/2023 Sex: Unknown Functional Status Question Answer Note LastModified by Organizat ion Details LastModified Time Do you use any illicit or recreational drugs? No Information not available 11/23/2023 What is your level of alcohol consumption? None Information not available 11/23/2023 Are you currently employed? No Information not available 11/23/2023 Do you have transportation difficulties? No Information not available 11/23/2023 Are you able to walk independently without assistance or assistive devices? YESWOREST Information not available 11/23/2023 Do you have difficulty doing errands alone? No Information not available 11/23/2023 Are you able to care for yourself independently? Yes Information not available 11/23/2023 Do you have difficulty dressing, bathing, grooming, or toileting? No Information not available 11/23/2023 What is your exercise level? None Information not available 11/23/2023 Mental Status Question Answer Note LastModified by Organization D etails LastModified Time Do you have difficulty concentrating, remembering or making decisions? No Information no t available 11/23/2023 Family History Relationship Description Onset Age of this Age Resolved Age Notes LastModified by Organization Details LastModified Time Father Malignant neoplastic disease [email or web address] Not available 2023 10:27:32 Notes:Cancer, Diabetes, Stro ke Medical History No medical history recorded. Immunizations Vaccine Type Date Status Note Provider Nam e and Address Organization Details Recorded Time Influenza, high-dose, quadrivalent, PF 1 completed Zenaida dumont [facility] 11/30/2023 07:51:20 Influenza, adjuvanted, quadrivalent, PF 2 completed Zenaida dumont [facility] 11/30/2023 07:51:20 COVID-19, mRNA, LNP-S, PF, 100 mcg/0.5mL dose or 50 mcg/0.25mL dose 2 completed Zenaida dumont [facility], JohnathanLGino 11/30/2023 07:51:20 COVID-19, mRNA, LNP-S, PF, 100 mcg/0.5mL dose or 50 mcg/0.25mL dose 1 completed Zenaida dumont [facility] 11/30/2023 07:51:20 COVID-19, mRNA, LNP-S, PF, 100 mcg/0.5mL dose or 50 mcg/0.25mL dose 1 completed Zenaida dumont [facility] 11/30/2023 07:51:20 Pneumococcal conjugate PCV 13 8 [facility]/30/[facility]23 07:51:20 Influenza, split virus, trivalent, preservative 4 completed Zenaidaethan dumont [facility] 11/30/2023 07:51:20 Influenza, split virus, trivalent, PF 8 completed Zenaida dumont [facility] 11/30/2023 07:51:20 Influenza, split virus, trivalent, PF 5 [facility] 11/30/2023 07:51:20 Past Encounters Encounter ID Performer Location Encounter Start Date Encounter Closed Date Diagnosis/Indication Diagnosis SNOMED-CT Code Diagnosis ICD10 Code Diagnosis IMO Codes Diagnosis Note [id number] Jimmy Mcneal MD [facility] ([facility]) [address] [place] [address] 11/23/2023 10:14:59 11/23/2023 11:51:58 Type 2 diabetes mellitus 13607797 E11.9 Will check A1c today and microalbum in. Will make any adjustment s to his medication s as needed. Essential hypertension 21965557 I10 Continue current medication s. Encouraged monitoring of blood pressure at home. Benign pro static hyperplasia without outflow obstruction 594477818 N40.0 Continue tamsulosin Hypercholesterolemia 136 53632 E78.00 Continue simvastati n. Check lipid panel Allergic rhinitis 497797 04 J30.9 The patient has signs and symptoms suggestive of allergic rhinitis. Recommend starting Flonase. [id number] Jimmy Mcneal MD [facility] ([facility]) [address] [place] [phone] 01/18/2024 14:15:59 01/18/2024 15:53:58 Hiatal hernia with gastroesophageal reflux 943685765 K21.00 We will start PPI and see if this improves his symptoms. Melena 6527493 K92.1 Will test for H. pylori and blood in the stools. Check blood counts Type 2 freda betes mellitus 90582919 E11.42 Diabetes mellitus 539741 09 E11.59 Benign pro static hyperplasia 390555921 N40.0 [id number] Jimmy Mcneal MD [facility] ([facility]) [address] [place] [phone] 10/29/2024 15:24:35 10/29/2024 16:39:50 Type 2 diabetes mellitus 92500787 E11.42 Check labs today to monitor control and check for protein in the urine. Continue current medication s. Hypercholesterolemia 136 06539 E78.00 Continue simvastati n. Check lipid panel Essential hypertension 40911819 I10 Continue current medication s. Encouraged monitoring of blood pressure at home. Benign pro static hyperplasia 076379897 N40.0 Tolerating tamsulosin well. Generalize d osteoarthritis 406669666 M15.9 1453 Patient was interested in restarting Celebrex. [id number] Jimmy Mcneal MD [facility] ([facility]) [address] [place] [phone] 12/03/2024 16:34:43 12/03/2024 17:20:43 Acute urinary tract infection 174100551 N39.0 [id number] Patient is recovering from his severe infection. Type 2 freda betes mellitus 59225593 E11.42 Continue current interventi ons. Encouraged diabetic diet. Plan on repeat A1c in 3 months. Health Concerns Section Related Observation LastModified by Organization Detai ls LastModified Time None Recorded Concern Status LastModified by Organization Details LastModified Time None Recorded Advance Directives Directive N: Payers Insurance Date Sequence Insurance Name Policy Number Policy Nunn Covered Member ID Nunn Member ID Guarantor Name 12/10/2024 1 [employer] (MEDICARE REPLACEMENT/ ADVANTAGE - PPO) Clovis Jaquez [id number] Clovis Jaquez Notes Date Note Type Note Provider Name and Address Organization Details Recorded Time 4 text/html CoughReported by PatientHPIFor severity, patient reportspain with coughbut reportsmild. For quality, patient reportsproductive. For duration, patient reportsconstantandacute (<3 weeks). For onset/timing, patient reportsgradual. For context, patient reportsworse at night. For associated symptoms, patient reportsno fever,no chills,no nausea, andno vomiting. This is a 3-year-old gentleman that comes in today with his family to establish care. The patient has a history of multiple chronic medical issues. Patient has had some lab work done but has been sometime since he had his cholesterol checked. The rest of his labs were normal. Patient has not had an A1c in the last 3 months. Patient has been having some mild congestion and cough that is been persistent over the last 2 weeks. Patient states that he tolerates his medicine without any issues. Jimmy Mcneal MD [address] [place] [address], [phone], [facility] 11/24/2023 17:00:29 4 text/html This is an 83-year-old gentleman that comes in today with increasing abdominal pain. Patient has known hiatal hernia has a history of peptic ulcers in the past. Patient denies any specific aggravating factors. Patient has noticed that his stool is dark in color and has been concerning for blood. Patient reports feeling tired and fatigued. Jimmy Mcneal MD [address] [place] [address], [phone], [facility] 01/23/2024 09:30:09 5 text/html Annual WellnessReported by PatientSocial/Behavioral HistoryFor physical activity, patient reportsdoes not exercise on a regular basisanddecreased physical activity. For diet and nutrition, patient reportshealthy diet. For fracture risk, patient reportsno history of fractures. For additional lifestyle factors, patient reportsno tobacco useandno alcohol intake.Mental Status:For depression risk, patient reportssleep disturbances or insomniabut reportsnever feels sad, empty, or tearful,no loss of interest in activities,no agitation,no feelings of worthlessness or guilt,no thoughts of suicide,no history of depression, andno history of mood disorders.Functional AbilityFor hearing, patient reportsloss of hearing in one ear only(not much hearing in his right ear). For vision, patient reportsno vision problems. Upper Respiratory SymptomsReported by PatientUpper Respiratory SymptomsFor quality, patient reportsproductive cough. For associated symptoms, patient reportssore throatandheadache(low grade fever). For location, patient reportsthroat,ears, andface. For severity, patient reportsmoderate(started last night). For context, patient reportsno sick contacts. This is a 40-year-old gentleman that comes in today for his annual visit. Patient is due for routine lab work. Patient continues to have significant pain in his joints due to his arthritis. Patient feels that his blood sugars are doing well. Overall, the patient is tolerating his current medications without significant side effect. Jimmy Mcneal MD [address] [place] [address], [phone], [facility] 11/04/2024 10:03:12 5 text/html This is an 84-year-old gentleman comes in today for hospital follow-up. The patient was admitted for UTI with sepsis. Patient was also noted to have elevated glucose. Patient was started on insulin while hospitalized. Patient's blood pressure has been mildly elevated when checked at home. Patient has been having some nausea but overall doing fairly well. Patient states that he is doing significantly better. Jimmy Mcneal MD [address] [place] [address], [phone], [facility] 12/06/2024 09:59:29
--- NOTE | 2024-12-25 22:11 | W.ED.RECABL ---
HPI - Recheck/Abnormal Lab/Rx General: Chief Complaint: Recheck/Abnormal Lab/Rx Stated Complaint: High BP, Hallucinations Time Seen by Provider: 12/25/24 22:04 History of Present Illness: 84yo M w/pmhx of type 2 diabetes on glipizide, high blood pressure, high cholesterol, BPH presents with a chief complaint of elevated blood pressure at home. Patient states that today, he was starting to experience seeing flashes of lights and then developed a gradual onset GUTIERREZ. Patient states that this type of headache is quite usual for him. He states that these headaches generally resolve with laying down in a dark cool room and Tylenol. They tend to be associated with nausea and sensitivity to light. At this time, he states he no longer has a headache. During this episode, patient took his blood pressure and noted his blood pressure to be elevated. Triage blood pressure is 128/76 however he states that at home, he noted a systolic blood pressure of 207. At this time, he denies double vision, loss of vision, difficulty with speech, swallowing, confusion, facial asymmetry, focal numbness, focal weakness, difficulty with coordination or ambulation. He denies chest pain, shortness of breath, orthopnea or worsening lower extremity edema. At this time, he is not experiencing any dysuria, hematuria or difficulty urinating. Patient also mentions that for the past 1 year, he has been experiencing visual hallucinations. He states that he sees a brief image of a child or woman but he knows that this is not real and they are not distressing to him. Related Data Home Medications ?Medication ?Instructions ?Recorded ?Confirmed aspirin 81 mg tablet,delayed 81 mg PO DAILY 06/10/21 11/25/24 release (Adult Low Dose Aspirin) coQ10 (ubiquinol) 100 mg capsule 100 mg PO DAILY 07/19/22 11/25/24 diphenhydramine HCl 50 mg capsule 50 mg PO BEDTIME PRN Insomnia 07/19/22 11/25/24 (Unisom SleepGels) Previous Rx's ?Medication ?Instructions ?Recorded lancets #400 ea 02/03/22 tiotropium bromide 1.25 2 puff inhalation DAILY #4 grams 08/26/22 mcg/actuation mist for inhalation (Spiriva Respimat) glipizide 5 mg tablet See Rx Instructions .Route 10/27/22 .COMPLEX #180 tabs metoprolol tartrate 50 mg tablet 50 mg PO BID blood pressure and 11/05/22 heart rate #180 tabs blood sugar diagnostic (True #100 strips 11/30/22 Metrix Glucose Test Strip) lisinopril 2.5 mg tablet 2.5 mg PO DAILY HTN/kidney #90 tabs 12/03/22 tamsulosin 0.4 mg capsule 0.4 mg PO DAILY prostate 12/30/22 medication #90 caps meloxicam 7.5 mg tablet 7.5 mg PO DAILY PRN arthritis/pain 07/08/23 #90 tabs simvastatin 40 mg tablet 40 mg PO DAILY dyslipidemia #90 08/02/23 tabs metformin 1,000 mg tablet See Rx Instructions .Route 08/10/23 .COMPLEX #180 tabs pantoprazole 40 mg tablet,delayed 40 mg PO BID Hiatal hernia & 11/28/24 release reflux #60 tabs Allergies Allergy/AdvReac Type Severity Reaction Status Date / Time Penicillins Allergy ALGY-Rash Verified 10/31/23 09:42 PFS ED [facility]: Medical History (Updated 12/26/24 @ 02:21 by Eulalia Oscar MD) Ureteral stone with hydronephrosis Nephrolithiasis x 4 with intervention x 3, 06/29/2023 left flank pain & 7 mm left mid ureteral sterile stone with mild obstruction of left kidney. Chronic nausea History of hiatal hernia History of peptic ulcer disease Hyperlipidemia associated with type 2 diabetes mellitus SOB (shortness of breath) Migraine equivalent syndrome Vitreous flashes of both eyes Carotid stenosis, left Osteoarthritis involving multiple joints on both sides of body BPH (benign prostatic hyperplasia) HTN (hypertension), benign DM type 2 (diabetes mellitus, type 2) History of chronic back pain GERD (gastroesophageal reflux disease) Surgical History History of esophagogastroduodenoscopy (EGD) 10 + yrs ago at [facility] Home History of appendectomy S/P hernia surgery History of cholecystectomy H/O cataract extraction H/O brain surgery Family History Sister Cancer Father Cancer Other CAD (coronary artery disease) Social History Smoking and tobacco/nicotine status: never used tobacco/nicotine Quit status (tobacco/nicotine): has quit using Year quit tobacco: 1969 Former quit date comment: Smoked x 22 year 1/2 pack per day Alcohol intake: current Alcohol intake frequency: holidays/special occasions only Substance/Drug Use: never Marital status: Current occupational status: employed and retired Physical Exam Narrative: EXAM NARRATIVE: Vitals were reviewed. On my exam, patient is alert, oriented and hemodynamically stable. EOMI, PERRL. No facial asymmetry. Speech is clear. No focal weakness or sensory change. He is ambulatory. Lungs are clear b/l, no murmur noted. + Tachycardia. Abdomen is soft, nondistended and nontender. No significant LE edema or asymmetric swelling. Course Vital Signs: Vital signs: Vital Signs Temperature 97.5 F L 12/25/24 21:57 Pulse Rate 108 H 12/26/24 01:48 Respiratory Rate 18 12/26/24 01:48 Blood Pressure 106/63 12/26/24 01:48 Pulse Oximetry 96 12/26/24 01:48 Oxygen Delivery Me thod Room Air 12/26/24 01:48 MDM - Recheck/Abnormal Lab/Rx Medical Decision Making 84-year-old male presenting with a chief complaint of measurement of high blood pressure at home. Patient was prompted to measure his blood pressure due to headache he developed that has now resolved. Patient has a normal blood pressure now. Patient is asymptomatic on my exam. Differential diagnosis includes but is not limited to, migraine headache, tension headache, asymptomatic hypertension, hypertensive emergency, UTI, other. Patient was screened with CBC, CMP, troponin, BNP, TSH, EKG and was treated with IV fluids due to tachycardia that has been noted on my exam. Patient has a minimally elevated white blood cell count but this is nonspecific. He is not anemic. In fact, H/H is slightly higher than previously, I suspect a mild degree of dehydration and hemoconcentration. Patient's heart rate has significantly improved from 122-108 after IV fluids and he continues to tolerate p.o. intake and has been drinking water. He does have elevated glucose but he states that this is relatively normal; his presentation is not consistent with DKA. Patient does not have a urinary tract infection. On reassessment, he states that he is feeling quite well and his blood pressure is normal. Blood pressure was his biggest concern but he is not experiencing any signs or symptoms of hypertensive emergency. At this time, patient is quite comfortable, wishes to go home. I feel that this is reasonable. Patient does also take metoprolol for tachycardia which may be contributing to a mildly elevated heart rate. I advised him on return precautions and recommended he see his doctor within the next 48 to 72 hours. Patient is agreeable with this plan. Patient was discharged in a stable condition. Lab Data 12/25/24 23:33 12/25/24 23: Laboratory Results WBC 11.82 10^3/uL (3.29-11.43) H 12/25/24 23: RBC 4.96 10^6/uL (3.85-5.65) 12/25/24: Hgb 15.40 g/dL (11.27-16.99) 12/25/24: Hct 46.1 % (37-53) 12/25/24: MCV 92.9 fl (82-101) 12/25/24: MCH 31.0 pg (27-33) 12/25/24 23: MCHC 33.4 g/dL (30-55) 12/25/24: RDW 13.1 % (12.1-15.1) 12/25/24: Plt Count 155 10^3/cmm (157-399) L 12/25/24 23: MPV 9.6 fL (7.4-10.4) 12/25/24 23: Neut % (Auto) 61.2 % 12/25/24 23: Lymph % (Auto) 25.5 % 12/25/24 23: [place] % (Auto) 8.1 % 12/25/24 23: Eos % (Auto) 4.1 % 12/25/24: Baso % (Auto) 0.8 % 12/25/24: Neut # (Auto) 7.24 10^3/uL (1.8-7.7) 12/25/24 23: Lymph # (Auto) 3.0 10^3/uL (0.8-4.8) 12/25/24 23: [place] # (Auto) 1.0 10^3/uL (0.2-0.9) H 12/25/24 23:33 Eos # (Auto) 0.5 10^3/uL (0.0-0.8) 12/25/24 23:33 Baso # (Auto) 0.1 10^3/uL (0.0-0.1) 12/25/24 23:33 Nucleated RBC % (auto) 0 % 12/25/24 23: Nucleated RBCs # 0.0 /100WBC 12/25/24 23:33 Sodium 137 mmol/L (136-145) 12/25/24 23:33 Potassium 4.6 mmol/L (3.5-5.1) 12/25/24 23:33 Chloride 99 mmol/L (98-107) 12/25/24 23:33 Carbon Dioxide 23 mmol/L (22-29) 12/25/24 23:33 Anion Gap 19.6 (5-19) H 12/25/24 23:33 BUN 15 mg/dL (8-23) 12/25/24 23:33 Creatinine 0.9 mg/dL (0.7-1.2) 12/25/24 23:33 GFR Calculation Not Reportable 12/25/24 23:33 Glucose 317 mg/dL (65-115) H 12/25/24 23:33 Calculated Osmolality 297 mOsm/kg (285-295) H 12/25/24 23:33 Calcium 10.0 mg/dL (8.5-10.5) 12/25/24 23:33 Total Bilirubin 0.5 mg/dL (0.15-1.2) 12/25/24 23:33 AST 17 U/L (0-40) 12/25/24 23:33 ALT 19 U/L (0-41) 12/25/24 23:33 Alkaline Phosphatase 62 U/L (40-130) 12/25/24 23:33 Troponin T Baseline 19 ng/L (0-15) H 12/25/24 23:33 NT-Pro-B Natriuret Pep 132 pg/mL (0-450) 12/25/24 23:33 Total Protein 6.7 g/dL (6.6-8.7) 12/25/24 23:33 Albumin 4.4 g/dL (3.5-5.2) 12/25/24 23:33 Globulin 2.3 g/dL (1.3-4.6) 12/25/24 23:33 TSH 3.69 uIU/mL (0.27-4.20) 12/25/24 23:33 Urine Color Yellow (Yellow) 12/25/24 23:38 Urine Appearance Clear (CLEAR) 12/25/24 23:38 Urine pH 5.5 (5-7) 12/25/24 23:38 Ur Specific [place] 1.021 (1.005-1.030) 12/25/24 23:38 Urine Protein Negative (Negative) 12/25/24 23:38 Urine Glucose (UA) 1+ (Normal) H 12/25/24 23:38 Urine Ketones 1+ (Negative) H 12/25/24 23:38 Urine Blood Negative (Negative) 12/25/24 23:38 Urine Nitrate Negative (Negative) 12/25/24 23:38 Urine Bilirubin Negative (Negative) 12/25/24 23:38 Urine Urobilinogen 0.2 mg/dL (Negative) 12/25/24 23:38 Ur Leukocyte Esterase Negative (Negative) 12/25/24 23:38 Urine RBC 0-2 /hpf (0-2) 12/25/24 23:38 Urine WBC 0-5 /hpf (0-5) 12/25/24 23:38 Ur Squamous Epith Cells 0-5 /hpf (0-5) 12/25/24 23:38 Amorphous Sediment Not Reportable 12/25/24 23:38 Urine Bacteria None seen /hpf (NONE) 12/25/24 23:38 Hyaline Casts 0-4 /lpf H 12/25/24 23:38 No radiology studies performed this visit ED provider radiology interpretation(s): Sinus tachycardia with first-degree AV block, left axis deviation, narrow complex, normal QTc, no STEMI. Occasional PVC. Discharge Plan Discharge Patient Disposition: Home Clinical Impression: Tachycardia, Mild dehydration, Hallucinations, visual Condition: Stable Prescriptions: No Action aspirin [Adult Low Dose Aspirin] 81 mg tablet,delayed release (DR/EC) 81 mg PO DAILY Spiriva Respimat 1.25 mcg/actuation mist 2 puff inhalation DAILY Qty: 4 5RF meloxicam 7.5 mg tablet 7.5 mg PO DAILY PRN (Reason: arthritis/pain) Qty: 90 1RF (DME) lancets Misc See Rx Instructions .Route Qty: 400 3RF Rx Instructions: As directed glipizide 5 mg tablet See Rx Instructions .ROUTE .COMPLEX Qty: 180 2RF Dose Instruction: TAKE 1 TABLET TWICE DAILY FOR DIABETES Rx Instructions: TAKE 1 TABLET TWICE DAILY FOR DIABETES metoprolol tartrate 50 mg tablet 50 mg PO BID Qty: 180 1RF (DME) True Metrix Glucose Test Strip Strip See Rx Instructions .ROUTE .COMPLEX Qty: 100 3RF Dose Instruction: TEST BLOOD SUGAR EVERY DAY DIRECTED Rx Instructions: TEST BLOOD SUGAR EVERY DAY DIRECTED lisinopril 2.5 mg tablet 2.5 mg PO DAILY Qty: 90 2RF tamsulosin 0.4 mg capsule 0.4 mg PO DAILY Qty: 90 1RF simvastatin 40 mg tablet 40 mg PO DAILY Qty: 90 3RF metformin 1,000 mg tablet See Rx Instructions .ROUTE .COMPLEX Qty: 180 3RF Dose Instruction: TAKE 1 TABLET TWICE DAILY Rx Instructions: TAKE 1 TABLET TWICE DAILY pantoprazole 40 mg tablet,delayed release (DR/EC) 40 mg PO BID Qty: 60 3RF diphenhydramine HCl [Unisom SleepGels] 50 mg Capsule 50 mg PO BEDTIME PRN (Reason: Insomnia) coQ10 (ubiquinol) 100 mg Capsule 100 mg PO DAILY Discharge Orders: Discharge ED (Routine); Ordered 12/26/24 Ordered By: Eulalia Oscar Referrals: Roscoe Mcneal MD [Primary Care Provider, Family Practice] Patient Instructions: Opioid Safety, Pain Management, Patient Portal & [place] Instructions, Tachycardia (ED) Activity Restrictions/Additional Instructions: Please continue to hydrate at home. Take your metoprolol, medication for high blood pressure and high heart rate, at home as prescribed twice a day. Please continue to monitor your condition very closely at home. If your condition worsens or additional concerns arise, please return to the emergency department for reassessment. Please see your doctor within the next 48 to 72 hours. Have your doctor measure your heart rate. Please talk to your doctor about your ongoing hallucinations for the last year and talk to your doctor about a referral to neuropsychiatrist. You may have a type of dementia that is complicated by hallucinations. Print Language: Chinese Coding Level of Care Code ED [employer] for Sebastien Albright
--- NOTE | 2024-12-25 23:17 | ECG_ITS ---
[facility] Date: 2024-12-25 Pat Name: Clovis Jaquez Department: Room: Gender: Male Activity Assistant: : 1940 Requested By: Eulalia Oscar Order Number: [id number] George MD: Gustaov Mo M.D. Measurements Intervals [place] Rate: 119 P: 0 [place]: 0 QRS: -18 QRSD: 90 T: 46 QT: 313 QTc: 441 Interpretive Statements SUPRAVENTRICULAR TACHYCARDIA Compared to ECG 11/25/2024 06:33:09 Sinus tachycardia no longer present T-wave abnormality no longer present Electronically Signed On 12-26-2024 16:52:31 CDT by Gustavo Mo M.D. [email or web address]
[2024-12-25 23:44] LABS: Hematocrit 46.1 % (37-53); Hemoglobin 15.40 g/dL (11.27-16.99); Mean Corpuscular HGB Conc 33.4 g/dL (30-55); Mean Corpuscular Hemoglobin 31.0 pg (27-33); Mean Corpuscular Volume 92.9 fl (82-101); Nucleated Red Blood Cells % 0 %; Platelet Count 155 10^3/cmm (157-399); Red Blood Count 4.96 10^6/uL (3.85-5.65); White Blood Count 11.82 10^3/uL (3.29-11.43)
[2024-12-25 23:49] LABS: Glucose Urine UA 1+ (Normal); Nitrate Urine Negative (Negative); Specific Gravity, Urine 1.021 (1.005-1.030)
[2024-12-25 23:54] LABS: Add Urine Microscopic? YES
[2024-12-26 00:03] LABS: Troponin(5th) Baseline 19 ng/L (0-15)
[2024-12-26 00:10] LABS: Alanine Aminotransferase 19 U/L (0-41); Albumin Level 4.4 g/dL (3.5-5.2); Alkaline Phosphatase 62 U/L (40-130); Anion Gap 19.6 (5-19); Aspartate Amino Transferase 17 U/L (0-40); Blood Urea Nitrogen 15 mg/dL (8-23); Calcium 10.0 mg/dL (8.5-10.5); Carbon Dioxide 23 mmol/L (22-29); Chloride 99 mmol/L (98-107); Creatinine Clr Calc Pharmacy 70.4038; Globulin 2.3 g/dL (1.3-4.6); Glucose 317 mg/dL (65-115); NT Pro B Type Natriuretic Pept 132 pg/mL (0-450); Osmolality Calculated 297 mOsm/kg (285-295); Potassium 4.6 mmol/L (3.5-5.1); Sodium 137 mmol/L (136-145); Thyroid Stimulating Hormone 3.69 uIU/mL (0.27-4.20); Total Protein 6.7 g/dL (6.6-8.7)
[2024-12-26 01:48] VITALS: BP 106/63; PULSE 108; RESP 18; O2SAT 96
[2024-12-26 02:31] VITALS: BP 119/77; PULSE 104; RESP 18; O2SAT 95
== END 2024-12-26 02:30 | disposition home or self-care (01) ==
PROVIDERS: Emergency Provider Emergency Medicine; PCP Family Medicine
DX: R00.0 Tachycardia, unspecified (principal); E86.0 Dehydration; R44.1 Visual hallucinations; Z79.82 Long term (current) use of aspirin; Z79.84 Long term (current) use of oral hypoglycemic drugs; Z87.891 Personal history of nicotine dependence; E11.69 Type 2 diabetes mellitus with other specified complication; E78.5 Hyperlipidemia, unspecified; I10 Essential (primary) hypertension
CPT/HCPCS: 36415; 80053; 81001; 83880; 84443; 84484; 85025; 93005; 96360; 99284; J7120